=== PATIENT | male | born 1985 | race Caucasian/White ===

== ENCOUNTER 2019-08-07 10:10 | Emergency (ER) | payer OTHER, SELFPAY ==
[2019-08-07 10:21] VITALS: BP 150/90; PULSE 104; RESP 16; TEMP 36.7; O2SAT 96; BMI 34.9
--- NOTE | 2019-08-07 10:30 | ED_ITS ---
Entered by Alia Miranda, acting as scribe for Aileen Johnson MD HPI - Ear Problem General: Chief complaint: Ear Stated complaint: Ears are bleeding Time Seen by Provider: 08/07/19 10:28 Source: patient Mode of arrival: ambulatory Limitations: no limitations History of Present Illness: MD Complaint: ear pain (L ear) Location: left ear Duration: constant Severity: moderate Relieving factors: nothing Exacerbating factors: nothing Discharge from ear: yes - bloody Associated symptoms: Reports no associated symptoms and ear or mastoid pain; Denies fever(s), headache(s) or neck pain Treatment prior to arrival: none and other (pt took one augmentin) Review of Systems General: Reports: 10 or more systems reviewed and unremarkable except in HPI and below Const: Denies: fever, chills, body aches or change in appetite Eyes: Denies: blurry vision or eye discomfort ENMT: Reports: ear pain and ear discharge Card: Denies: chest pain Resp: Denies: shortness of breath GI: Denies: abdominal pain, nausea, vomiting or diarrhea : Denies: painful urination Musc: Denies: neck pain or back pain Skin/Breast: Denies: rash Neuro: Denies: headache Psych: Denies: depression Sree/Lymph: Denies: easy bruising All/Imm: Denies: hives PFSH ED PFSH: Social History Smoking and tobacco status: never smoked Physical Exam Const: COMMON NORMALS: no apparent distress, oriented x3 and healthy appearing HENMT: COMMON NORMALS: normocephalic and head/scalp atraumatic HEAD & SCALP: normocephalic and atraumatic TYMPANIC MEMBRANE: TM abnormal OTHER: Erythema to left ear with fluid in his ear small perforation to his eardrum Eye: COMMON NORMALS: PERRL and EOMs intact bilaterally PUPIL: Yes PERRL Neck/C-Spine: COMMON NORMALS: full ROM and supple Chest: COMMONS NORMALS: inspection of chest normal and palpation of chest normal Resp: COMMON NORMALS: normal respiratory effort, no retractions, no use of accessory muscles and clear to auscultation bilaterally AUSCULTATION: clear to auscultation bilaterally Cardio: COMMON NORMALS: regular rate, regular rhythm and no murmurs RATE: regular rate RHYTHM: regular rhythm GI: COMMON NORMALS: normal to inspection, nondistended, normoactive bowel sounds, soft to palpation, non-tender and no masses PALPATION: Yes soft Extremity: COMMON NORMALS: normal to inspection and full ROM Neuro: COMMON NORMALS: oriented x3, moves all extremities and no focal motor deficits Psych: COMMON NORMALS: mental status grossly normal, thought process normal and cooperative THOUGHT PROCESS: normal thought process Skin: COMMON NORMALS: no rashes or lesions noted and no wounds GENERAL SKIN EXAM: no rashes or lesions noted Course Vital Signs: Vital signs: Vital Signs Temperature 98.1 F 08/07/19 10:21 Pulse Rate 104 H 08/07/19 10:21 Respiratory Rate 18 08/07/19 10:31 Blood Pressure 150/90 08/07/19 10:21 Pulse Oximetry 96 08/07/19 10:21 MDM - Ear MDM Narrative: Medical decision making narrative: Patient presents with a perforated eardrum on the left. He is well-appearing here and we will place him on azithromycin. Patient is stable for discharge and is to follow-up with primary care doctor in 3 to 5 days. He has no signs of mastoiditis. Discharge Plan Discharge Patient Disposition: Home, Self-Care Clinical Impression: Otitis media Qualifiers: Otitis media type: serous Chronicity: acute Laterality: left Recurrence: non- recurrent Qualified Code(s): H65.02 - Acute serous otitis media, left ear Condition: Stable Prescriptions: New EC-Naprosyn 500 mg tablet,delayed release (DR/EC) 500 mg PO BID PRN (Reason: pain) Qty: 20 RF: 0 azithromycin 250 mg tablet See Rx Instructions .ROUTE .COMPLEX Qty: 6 RF: 0 [place] 5-325 mg tablet 1 tab PO Q6H PRN (Reason: pain) Qty: 8 RF: 0 No Action Concerta 36 mg Tablet Extended Release 24hr 36 mg PO DAILY RF: 0 Discharge Orders: Discharge Order (Routine); Ordered 08/07/19 Ordered By: Aileen Johnson Referrals: Leslie Stephenson FNP [Primary Care Provider] - 4-7 days Discharge Diet: Advance as tolerated Discharge Activity: Resume usual activity Patient Instructions: Otitis Media (ED) Coding Level of Care Code ED Film Tests Checker for Chg Fwd Exam Problem Focused The documentation recorded by the Ruben gilbert Bridget Annette, accurately reflects the service I personally performed and the decisions made by me, Aileen Johnson MD Aug 07, 2019 10:10
[2019-08-07 10:31] VITALS: RESP 18
[2019-08-07 10:44] VITALS: BP 131/87; PULSE 97; RESP 16; O2SAT 94
== END 2019-08-07 10:45 | disposition home or self-care (01) ==
PROVIDERS: Emergency Provider Emergency Medicine; Family Provider Nurse Practitioner; PCP Nurse Practitioner
DX: H66.92 Otitis media, unspecified, left ear (principal); H72.92 Unspecified perforation of tympanic membrane, left ear
CPT/HCPCS: 99281

== ENCOUNTER 2019-08-19 07:39 | Emergency (ER) | payer OTHER, SELFPAY ==
[2019-08-19 07:45] VITALS: BP 152/87; PULSE 93; RESP 16; TEMP 36.8; O2SAT 97; BMI 34.2
--- NOTE | 2019-08-19 07:46 | ED_ITS ---
HPI - Allergic Reaction General: Chief complaint: Allergic Reaction Stated complaint: LIPS SWELLING AND RASH ALL OVER Time Seen by Provider: 08/19/19 07:45 Source: patient Mode of arrival: ambulatory Limitations: no limitations History of Present Illness: HPI narrative: Patient comes in today for complaints of itchy rash and swelling of the lips since Thursday. Patient presently takes Bactrim for his otitis media. Patient appears in no acute distress. Patient appears in no pain. Patient appears well. MD complaint: hives and facial swelling Review of Systems General: Reports: 10 or more systems reviewed and unremarkable except in HPI and below ENMT: Denies: uvular edema Skin/Breast: Reports: rash and itching PFSH ED PFSH: Social History Smoking and tobacco status: never smoked Physical Exam Const: COMMON NORMALS: no apparent distress and oriented x3 GENERAL APPEARANCE: cooperative HENMT: COMMON NORMALS: normocephalic, external ears normal, EAC's normal, TM's normal bilaterally and external nose normal HEAD & SCALP: normal to inspection and normocephalic NOSE: external nose normal GENERAL EAR: hearing not grossly impaired EXTERNAL EAR: Yes external ears normal EXTERNAL AUDITORY CANAL: EAC's normal TYMPANIC MEMBRANE: TM's normal bilaterally MOUTH: tongue normal and lip abnormal (mild swelling) THROAT: postnasal drainage; no uvular edema Eye: COMMON NORMALS: PERRL and EOMs intact bilaterally PUPIL: Yes PERRL Neck/C-Spine: COMMON NORMALS: full ROM and no lymphadenopathy Lymph: LYMPHATIC: no lymphedema noted Chest: COMMONS NORMALS: inspection of chest normal and palpation of chest normal Resp: COMMON NORMALS: normal respiratory effort and clear to auscultation bilaterally AUSCULTATION: clear to auscultation bilaterally Cardio: COMMON NORMALS: regular rate and regular rhythm RATE: regular rate RHYTHM: regular rhythm GI: COMMON NORMALS: normal to inspection, nondistended, normoactive bowel sounds and non-tender : COMMON NORMALS: Yes no CVA tenderness BLADDER/KIDNEY EXAM: Yes no CVA tenderness Back/Pelvis: COMMON NORMALS: no CVA tenderness and thoracic and lumbar spine normal to inspection Extremity: COMMON NORMALS: normal to inspection GENERAL: No edema Neuro: COMMON NORMALS: oriented x3, moves all extremities and no focal motor deficits Psych: COMMON NORMALS: mental status grossly normal and cooperative Skin: COMMON NORMALS: skin turgor normal GENERAL SKIN EXAM: turgor normal RASHES: rashes noted (urticaria) Course Vital Signs: Vital signs: Vital Signs Temperature 98.2 F 08/19/19 07:45 Pulse Rate 86 08/19/19 07:56 Respiratory Rate 17 08/19/19 07:56 Blood Pressure 152/87 08/19/19 07:56 Pulse Oximetry 99 08/19/19 07:56 MDM - Allergic Reaction MDM Narrative: Medical decision making narrative: Patient comes in today for complaints of lip swelling and rash since Thursday. Patient presently takes Bactrim for an otitis infection. Patient has had Augmentin and azithromycin also over the past 2 weeks. Patient reports that he is having improvement in his ear infection since being switched to the Bactrim. Patient on Thursday sta rted having itching and some mild swelling to the lips. Patient has been taking Benadryl but the rash has persisted and seems to be getting worse. Patient has continued taking the Bactrim though. Patient appears well. Patient appears in no pain. Exam notes respirations were even lungs were clear to auscultation. Skin is warm and dry color is pink. Differential diagnosis includes allergic re action, adverse drug reaction, anaphylaxis. Patient was given dexamethasone 10 mg IM and hydroxyzine 25 mg. Patient was encouraged to continue with hydroxyzine 25 mg every 6 hours for itching and rash. Encourage plenty drink plenty of fluids which includes water. Recommend stopping the Bactrim. And follow-up with ear nose and throat for continued monitoring of otitis media. Discharge Plan Discharge Patient Disposition: Home, Self-Care Clinical Impression: Urticaria Adverse reaction to drug Qualifiers: Encounter type: initial encounter Qualified Code(s): T50.905A - Adverse effect of unspecified drugs, medicaments and biological substances, initial encounter Condition: Stable Prescriptions: New hydroxyzine HCl 25 mg tablet 25 mg PO Q4H PRN (Reason: itching) Qty: 30 RF: 0 No Action Concerta 36 mg Tablet Extended Release 24hr 36 mg PO DAILY RF: 0 EC-Naprosyn 500 mg tablet,delayed release (DR/EC) 500 mg PO BID PRN (Reason: pain) Qty: 20 RF: 0 azithromycin 250 mg tablet See Rx Instructions .ROUTE .COMPLEX Qty: 6 RF: 0 [place] 5-325 mg tablet 1 tab PO Q6H PRN (Reason: pain) Qty: 8 RF: 0 Discharge Orders: Discharge Order (Routine); Ordered 08/19/19 Ordered By: Valerio Watts Referrals: Lselie Stephenson FNP [Primary Care Provider] - Discharge Diet: Usual diet Discharge Activity: Increase activity as tolerated Patient Instructions: Adverse Drug Reaction (ED) Activity Restrictions/Additional Instructions: Stop Bactrim Drink plenty of water Avoid extremes in temperature, Avoid hot showers, Avoid spicy foods, as these situations may aggravate rash and symptoms Take medications as directed Follow-up with primary care in three days for recheck Return to ER for worsening difficulty breathing or new concerns Stand Alone Forms: Work/School Release Coding Level of Care Code ED Supervisor Paper Testing for Alphonse Fwd Exam Comprehensive
[2019-08-19 07:56] VITALS: BP 152/87; PULSE 86; RESP 17; O2SAT 99
[2019-08-19] MEDS: dexamethasone 10 mg/mL INJ IM (08:15)
[2019-08-19] MEDS: hyDROXYzine 25 mg Capsule PO (08:15)
[2019-08-19 08:40] VITALS: PULSE 101; RESP 16; O2SAT 98
== END 2019-08-19 08:40 | disposition home or self-care (01) ==
PROVIDERS: Emergency Provider Nurse Practitioner Family; Family Provider Nurse Practitioner; PCP Nurse Practitioner
DX: L50.0 Allergic urticaria (principal); T50.905A Adverse effect of unspecified drugs, medicaments and biological substances, initial encounter
CPT/HCPCS: 96372; 99281; 99283; J1100

== ENCOUNTER 2020-03-29 19:25 | Emergency (ER) | payer OTHER, SELFPAY ==
[2020-03-29 19:41] VITALS: BP 137/92; PULSE 94; RESP 16; TEMP 36.8; O2SAT 96; BMI 33.4
--- NOTE | 2020-03-29 20:08 | ED_ITS ---
HPI - Neuro Symptoms/Deficit General: Chief Complaint: Neuro Symptoms/Deficit Stated Complaint: unable to complete sentences Time Seen by Provider: 03/29/20 20:07 History of Present Illness: HPI Narrative: Patient is a 34-year-old male comes to the ED with difficulty speaking. Patient has a past medical history of migraines. Patient says at proximately 1 PM yesterday he started having problems talking and says he developed a stutter. He is currently 31 to 32 hours post onset of symptoms. Symptoms have not improved since onset. He denies any history of stutter or any other speech issues. Yesterday after onset of symptoms he did not develop a mild headache and he rates about a 4 out of 10 currently. He describes location of the headache as at the back and top of head. He says his headache is not like his past migraines and feels very mild. He does not want any medication for his headache. He cannot comprehend speech and knows what he wants to say, but has trouble getting words out. He endorses having a brief episode of left side of face numbness/tingling sensation today that has since resolved. Facial numbness lasted for no more than a minute. Denies any recent drug or alcohol use. Denies any vision changes, difficulty with ambulation, weakness or numbness or tingling to extremities. Denies tobacco smoking history. Associated symptoms: Reports headache(s) (mild headache- located at top and back of head.); Deny chest pain, nausea or vomiting Review of Systems Const: Denies: fever(s), chills or fatigue Eyes: Denies: change in vision or eye discomfort ENMT: Denies: throat pain, odynophagia, nasal discharge or nasal congestion Card: Denies: chest pain, palpitations, edema, swelling of feet/ankles, dyspnea on exertion or orthopnea Resp: Denies: dyspnea, productive cough or non-productive cough GI: Denies: abdominal pain, nausea, vomiting, diarrhea, constipation or hematochezia : Denies: flank pain, difficulty urinating, dysuria or hematuria Musc: Denies: neck pain, back pain or extremity swelling Skin/Breast: Denies: rash or new lesions Neuro: Reports: headache(s) (mild headache- located at top and back of head.), sensory changes (brief left facial numbness that resolved within a minute earlier today.) and difficulty communicating thoughts; Denies: numbness in extremities, weakness in extremities, lack of coordination, difficulty walking or confusion PFSH ED PFSH: Social History Smoking and tobacco status: never smoked NIH stroke score NIHSS: Level Of Consciousness - 1a: 0 Level Of Consciousness Questions - 1b: Both Correct Level Of Consciousness Commands - 1c: Both Correct Best Gaze - 2: Normal Visual Lala - 3: No Visual Loss Facial Palsy - 4: Normal Motor Arm Right - 5: No Drift Motor Arm Left - 5: No Drift Motor Leg Right - 6: No Drift Motor Leg Left - 6: No Drift Limb Ataxia - 7: Absent Sensory - 8: Normal Best Language - 9: Mild/Moderate Aphasia Dysarthia - 10: Normal Extinction And Inattention - 11: 0 Score: Total Score: 1 Physical Exam Const: COMMON NORMALS: no acute distress, patient oriented x3 and alert GENERAL APPEARANCE: cooperative and comfortable ORIENTATION/CONSCIOUSNESS: Yes oriented to person, Yes oriented to place and Yes oriented to time HENMT: COMMON NORMALS: normocephalic HEAD & SCALP: normocephalic MOUTH: Normal oral and palatal mucosa present THROAT: posterior oropharynx normal and uvula midline Eye: COMMON NORMALS: Equal, round and reactive pupils present, EOMs intact bilaterally, conjunctivae normal and normal visual lala by confrontation CONJUNCTIVA: Yes conjunctivae normal PUPIL: Yes Equal, round and reactive pupils present Neck/C-Spine: COMMON NORMALS: supple GENERAL: Yes normal visual inspection Resp: COMMON NORMALS: normal respiratory effort, No retractions, No use of accessory muscles and clear to auscultation bilaterally AUSCULTATION: clear to auscultation bilaterally Cardio: COMMON NORMALS: regular rate, regular rhythm, S1 normal heart sound present, S2 normal heart sound present, No gallops present (Cardio), No clicks present (Cardio), No murmurs present (Cardio) and Peripheral pulses 2+ throughout RATE: regular rate RHYTHM: regular rhythm HEART SOUNDS: S1 normal heart sound present and S2 normal heart sound present PERIPHERAL PULSES: Peripheral pulses 2+ throughout GI: COMMON NORMALS: Normal to inspection, nondistended, normoactive bowel sounds present, Soft to palpation, non-tender and no masses PALPATION: Yes Soft to palpation : COMMON NORMALS: Yes no CVA tenderness BLADDER/KIDNEY EXAM: Yes no CVA tenderness Back/Pelvis: COMMON NORMALS: no CVA tenderness Extremity: COMMON NORMALS: normal to inspection, capillary refill normal and no pedal edema Neuro: COMMON NORMALS: patient oriented x3, CN's II-XII intact bilaterally, moves all extremities, no focal motor deficits and no sensory deficits noted SENSORIUM/ORIENTATION: Yes alert, Yes oriented to person, Yes oriented to place and Yes oriented to time COORDINATION/BALANCE: [id number] test normal SPEECH: abnormal speech Details: stuttering GAIT: Yes Normal gait present SENSORY EXAM: Yes extremities (intact) MOTOR EXAM: 5/5 motor strength present throughout COORDINATION: [id number] test normal Skin: GENERAL SKIN EXAM: dry skin Course Consultations: Consultation #1: [facility] Neurologist Consult--Dr. Gibson--I told about patient case presentation symptoms and CT head result. He said acute onset of stuttering is rarely neurological or result of a stroke. He said since patient has no risk factors and is 34 years old and no other associated neurological symptoms he recommended having patient referred to a neurologist outpatient and they can evaluate him and potentially do further imaging as needed. Vital Signs: Vital signs: Vital Signs Temperature 98.2 F 03/29/20 19:41 Pulse Rate 94 03/29/20 19:41 Respiratory Rate 16 03/29/20 19:41 Blood Pressure 137/92 03/29/20 19:41 Pulse Oximetry 96 03/29/20 19:41 MDM - Neuro Symptoms/Deficit MDM Narrative: Medical decision making narrative: Patient is a 34-year-old male who comes to the ED with sudden onset of stuttering. Symptom started approximately 1 PM yesterday. Patient describes understanding speech and knows what he wants to say but has trouble saying words. He denies any past history of speech problems or stuttering. He endorses having a brief episode that it since resolved today of left-sided facial tingling lasted for approximately 1 minute. He denies any vision changes, trouble ambulating, numbness weakness to extremities. NIHSS stroke score-1. Neuro exam was remarkable for abnormal speech?stuttering. The rest of neurological exam was normal. CT of the head showed no acute findings. I consulted Dr. Gibson a Neurologist with [facility]- He said acute onset of stuttering is rarely neurological or result of a stroke. He said since patient has no risk factors and is 34 years old and no other associated neurological symptoms he recommended having patient referred to a neurologist outpatient and they can evaluate him and potentially do further imaging as needed. I placed an order with case management for patient to be referred to a neurologist at [facility] in [place]. I discussed with patient my conversation with the neurologist Dr. Gibson. patient was discharged and told to follow-up with his primary care doctor in 5 to 7 days for reevaluation. I told him that case management should be contacting him in the next several days to set up an appointment with the neurologist at [facility]. Told him to return to ED if he has any worsening of symptoms or new onset of neurological symptoms. Patient understood and agreed with plan. Imaging Data^: CT Head: Attestation: I personally reviewed and interpreted this imaging study as miranda ws: Radiologist's impression: [place] [address] CT Scan Report Signed Patient: Renny Arnett Unit #: [id number] : 1985 Age/Sex: 34 / M ADM Date: 03/29/20 Loc: ER Room/Bed: Attending Dr: Ordering Provider/Ordering MD: Dioni Bender Date of Service: 03/29/20 Procedure(s): CT head wo con* [id number] Accession Number(s): [id number] Report Number: [id number] PROCEDURE INFORMATION: Exam: CT Head Without Contrast Exam date and time: 03/29/2020 8:17 PM Age: 34 years old Clinical indication: Patient HX: Speech disturbance x 1day; Additional info: Stroke like symptoms TECHNIQUE: Imaging protocol: Computed tomography of the head without contrast. Radiation optimization: All CT scans at this facility use at least one of these dose optimization techniques: automated exposure control; mA and/or kV adjustment per patient size (includes targeted exams where dose is matched to clinical indication); or iterative reconstruction. COMPARISON: No relevant prior studies available. RADIATION DOSE METRICS: Total DLP (mGy-cm): 853.07 FINDINGS: Brain: Normal. No hemorrhage. Unremarkable white matter. No mass effect. Cerebral ventricles: No ventriculomegaly. Bones/joints: Unremarkable. No acute fracture. Paranasal sinuses: Visualized sinuses are unremarkable. No fluid levels. Mastoid air cells: Visualized mastoid air cells are well aerated. Soft tissues: Unremarkable. CT/CT head wo con* [id number] IMPRESSION: No acute intracranial abnormality. Radiation Dose CTDIVOL = (mGy): DLP = 853.07 (mGy-cm) Dictated By: Alex Fabian Signed By: Alex Fabian Signed Date/Time: 03/29/202045 DD/ 44 Discharge Plan Discharge Patient Disposition: Home Clinical Impression: Idiopathic stuttering Headache Qualifiers: Headache type: tension-type Headache chronicity pattern: acute headache Intractability: not intractable Qualified Code(s): G44.209 - Tension-type headache, unspecified, not intractable Condition: Stable Prescriptions: No Action Concerta 36 mg Tablet Extended Release 24hr 36 mg PO DAILY RF: 0 EC-Naprosyn 500 mg tablet,delayed release (DR/EC) 500 mg PO BID PRN (Reason: pain) Qty: 20 RF: 0 azithromycin 250 mg tablet See Rx Instructions .ROUTE .COMPLEX Qty: 6 RF: 0 [place] 5-325 mg tablet 1 tab PO Q6H PRN (Reason: pain) Qty: 8 RF: 0 hydroxyzine HCl 25 mg tablet 25 mg PO Q4H PRN (Reason: itching) Qty: 30 RF: 0 Discharge Orders: Discharge Order (Routine); Ordered 03/29/20 Ordered By: Dioni Bender Referrals: Leslie Stephenson FNP [Primary Care Provider] - Discharge Diet: Regular Discharge Activity: Resume usual activity Activity Restrictions/Additional Instructions: Follow-up with your primary care physician in the next 5-7 days for reevaluation. Case management should be contacting you in the next several days to set up an appointment with a neurologist at [facility] in [place]. Return to the ER or your medical provider if condition worsens. Please read and understand discharge instructions. If any questions, please ask. Coding Level of Care Code ED Front Office Developer for Jayashreeg Fwd Exam Comprehensive
[2020-03-29 21:58] VITALS: BP 135/92; PULSE 86; RESP 18; O2SAT 94
--- NOTE | 2020-03-30 10:25 | DCPLANNER ---
room service manager had message to schedule a follow up appointment for patient with neurology at [facility] in [place]. room service manager called [facility], faxed patients information to the facility. room service manager will call for appointment information. Patient has [employer] insurance, clinical case manager emailed patients information to Sabina with [facility], by secure email.
--- NOTE | 2020-04-12 15:25 | DCPLANNER ---
Addendum entered by Charline Mayfield 08/23/20 11:00: Patient had a follow up appointment scheduled with Dr. Mathis at [facility] - patient did attend appointment. Original Note: Patient has a follow up appointment scheduled for Friday, June 19, 2020 at 3:[address] Mathis at [facility] in [place]. Clinic will contact patient with appointment information.
== END 2020-03-29 22:03 | disposition home or self-care (01) ==
PROVIDERS: Emergency Provider Physician Assistant; PCP Nurse Practitioner
DX: F98.5 Adult onset fluency disorder (principal); G44.209 Tension-type headache, unspecified, not intractable
CPT/HCPCS: 12345; 70450; 99283

== ENCOUNTER 2020-05-09 15:12 | Emergency (ER) | payer OTHER, SELFPAY ==
[2020-05-09 15:27] VITALS: BP 140/96; PULSE 110; RESP 18; TEMP 37.1; O2SAT 95; BMI 34.9
--- NOTE | 2020-05-09 15:46 | W.ED.GENADLT ---
HPI - General Adult General: Chief complaint: General Medical Stated complaint: UNKNOWN SUBSTANCE CONTACT Time Seen by Provider: 05/09/20 15:42 History of Present Illness: HPI narrative: Patient is a 34-year-old male who comes to the ED after possible exposure in contact unknown substance. Patient works at the [employer] says he was opening some mail noticed that the letter he opened had a fine white powder in it. No one else witnessed or saw the fine white powder. Patient says the letter was typed and just had recordings of blood pressures on it. He says he reported incident to the medical office coordinator at the [facility] and he also placed letter and biohazard bag and it is available for testing at the [facility]. Patient reports having no symptoms currently. Denies any chest pain, shortness of breath, cough, headache, nausea/vomiting, diarrhea. Associated symptoms: Deny chest pain, dyspnea, headache(s), nausea, rash, palpitations or vomiting Review of Systems Narrative: Patient has no symptoms but exposed to possibly hazardous unknown substance. Const: Denies: fever(s), chills or fatigue Eyes: Denies: change in vision or eye discomfort ENMT: Denies: throat pain, odynophagia, nasal discharge or nasal congestion Card: Denies: chest pain, palpitations, edema, swelling of feet/ankles, dyspnea on exertion or orthopnea Resp: Denies: dyspnea, productive cough or non-productive cough GI: Denies: abdominal pain, nausea, vomiting, diarrhea, constipation or hematochezia : Denies: flank pain, difficulty urinating, dysuria or hematuria Musc: Denies: neck pain, back pain or extremity swelling Skin/Breast: Denies: rash or new lesions Neuro: Denies: headache(s), numbness in extremities or weakness in extremities PFS ED PFSH: Social History Smoking and tobacco status: never smoked Physical Exam Const: COMMON NORMALS: no acute distress, patient oriented x3, healthy appearing and alert GENERAL APPEARANCE: cooperative and comfortable HENMT: COMMON NORMALS: normocephalic HEAD & SCALP: normocephalic MOUTH: Normal oral and palatal mucosa present THROAT: posterior oropharynx normal and uvula midline Eye: COMMON NORMALS: Equal, round and reactive pupils present and conjunctivae normal CONJUNCTIVA: Yes conjunctivae normal PUPIL: Yes Equal, round and reactive pupils present Neck/C-Spine: COMMON NORMALS: supple GENERAL: Yes normal visual inspection Resp: COMMON NORMALS: normal respiratory effort, No retractions, No use of accessory muscles and clear to auscultation bilaterally EFFORT & INSPECTION: Yes able to speak in complete sentences, No tachypneic, No respiratory distress and No labored AUSCULTATION: clear to auscultation bilaterally Cardio: COMMON NORMALS: regular rate, regular rhythm, S1 normal heart sound present, S2 normal heart sound present, No gallops present (Cardio), No clicks present (Cardio), No murmurs present (Cardio) and Peripheral pulses 2+ throughout RATE: regular rate RHYTHM: regular rhythm HEART SOUNDS: S1 normal heart sound present and S2 normal heart sound present PERIPHERAL PULSES: Peripheral pulses 2+ throughout GI: COMMON NORMALS: Normal to inspection, nondistended, normoactive bowel sounds present, Soft to palpation, non-tender and no masses PALPATION: Yes Soft to palpation : COMMON NORMALS: Yes no CVA tenderness BLADDER/KIDNEY EXAM: Yes no CVA tenderness Back/Pelvis: COMMON NORMALS: no CVA tenderness Extremity: COMMON NORMALS: normal to inspection Neuro: COMMON NORMALS: patient oriented x3 and moves all extremities SENSORIUM/ORIENTATION: Yes alert Skin: GENERAL SKIN EXAM: dry skin Course Vital Signs: Vital signs: Vital Signs Temperature 98.7 F 05/09/20 15:27 Pulse Rate 110 H 05/09/20 15:27 Respiratory Rate 18 05/09/20 15:27 Blood Pressure 140/96 05/09/20 15:27 Pulse Oximetry 95 05/09/20 15:27 MDM - General Adult MDM Narrative: Medical decision making narrative: Patient is a 34-year-old male who comes to the ED after he came in contact with unknown substance while working at the [employer]. Patient says he opened an envelope and saw small fine white powder in the envelope. He put envelope in biohazard bag and reported incident to his medical office coordinator. Patient says the [facility] was going to further investigate envelope. Patient has no symptoms and first went to decontamination when he came here to the ED. Exam was completely normal. Vitals stable. patient was discharged and told to return immediately if he finds out what substance was of its hazardous and to return if he starts developing fever, nausea/vomiting, chest pain, shortness of breath and diarrhea. Patient understood and agreed with plan. Discharge Plan Discharge Patient Disposition: Home Clinical Impression: Contact with potentially hazardous substance Condition: Stable Prescriptions: No Action hydrocodone-acetaminophen [Reynolds] 5-325 mg tablet 1 tab PO Q6H PRN (Reason: pain) Qty: 8 RF: 0 cetirizine 10 mg Tablet 10 mg PO DAILY RF: 0 Concerta 54 mg Tablet Extended Release 24hr 54 mg PO DAILY RF: 0 levothyroxine 25 mcg Tablet 25 mcg PO DAILY RF: 0 Lamictal 25 mg Tablet 25 mg PO DAILY RF: 0 loratadine 10 mg Tablet 10 mg PO DAILY RF: 0 Vitamin D3 25 mcg (1,000 unit) Tablet,Chewable 25 mcg PO DAILY RF: 0 Discharge Orders: Discharge Order (Routine); Ordered 05/09/20 Ordered By: Dioni Bender Referrals: Leslie Stephenson FNP [Primary Care Provider] - Discharge Diet: Regular Discharge Activity: Resume usual activity Activity Restrictions/Additional Instructions: Follow-up with medical provider as directed. Return to ED for evaluation if he start developing fever, chest pain, shortness of breath, nausea vomiting or diarrhea in the next couple days. [facility] she can return for treatment if substances are hazardous. Return to the ER or your medical provider if condition worsens. Please read and understand discharge instructions. If any questions, please ask. Coding Level of Care Code ED Bulb Weeder for Alphonse Story Exam Comprehensive
== END 2020-05-09 16:55 | disposition home or self-care (01) ==
PROVIDERS: Emergency Provider Physician Assistant; PCP Nurse Practitioner
DX: Z77.29 Contact with and (suspected) exposure to other hazardous substances (principal)
CPT/HCPCS: 12345; 99281

== ENCOUNTER 2020-05-15 07:47 | Emergency (ER) | payer OTHER, SELFPAY ==
[2020-05-15 08:02] VITALS: BP 139/90; PULSE 99; RESP 16; TEMP 36.2; O2SAT 97; BMI 34.9
--- NOTE | 2020-05-15 08:23 | XR_ITS ---
WS: [id number] XR chest 1V portable [id number] REASON FOR EXAM: cough, r/o covid FINDINGS: The chest is unchanged compared to previous examination of 04/15/2019. The heart and mediastinum are within normal limits. No active pulmonary parenchymal pleural disease is noted. The bony thorax is intact. XR/XR chest 1V portable [id number] IMPRESSION: No acute chest abnormality identified.
--- NOTE | 2020-05-15 08:24 | W.ED.GENADLT ---
HPI - General Adult General: Chief complaint: General Medical Stated complaint: rash, cough, itchy eyes Time Seen by Provider: 05/15/20 07:52 History of Present Illness: HPI narrative: This patient is a 34-year-old male who presents today with cough, rash, body aches, eye irritation. He works at the [employer] here in [facility] and on the he opened an envelope that contained a white powdery substance. He was evaluated that day in the ER in the next day at [place] at urgent care. He was tested for Covid in [place] and also had a CBC and BMP done. He also was diagnosed with a double ear infection and put on Augmentin. He said he was doing okay but returned to work yesterday and since then has had painful itchy eyes, cough, body aches and this morning woke up with a rash on his chest. He took Benadryl and the rash is mostly faded. He said they tested the white powder and it was not anything biological. 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 Onset (ago): week(s) (1) Associated symptoms: Reports dyspnea and malaise; Deny chest pain, headache(s), nausea, rash or vomiting Review of Systems General: Reports: 10 or more systems reviewed and unremarkable except in HPI and below Const: Reports: fatigue and malaise; Denies: fever(s) or chills Eyes: Reports: eye discomfort and dry eyes; Denies: change in vision ENMT: Reports: throat pain and ear or mastoid pain (Bilateral with anterior lymphadenopathy); Denies: odynophagia Card: Denies: chest pain or swelling of feet/ankles Resp: Reports: dyspnea and non-productive cough; Denies: productive cough GI: Denies: abdominal pain, nausea or vomiting : Denies: flank pain Musc: Denies: neck pain or back pain Skin/Breast: Denies: rash Neuro: Denies: headache(s), numbness in extremities or weakness in extremities Sree/Lymph: Denies: easy bruising or easy bleeding PFSH ED PFSH: Social History Smoking and tobacco status: never smoked Physical Exam Const: COMMON NORMALS: no acute distress, patient oriented x3, no limitations and alert GENERAL APPEARANCE: cooperative and comfortable HENMT: HEAD & SCALP: normal to inspection FACE & SINUS: normal facial exam Eye: GENERAL EYE: appearance normal, both eyes and all related structures Neck/C-Spine: COMMON NORMALS: supple, no meningeal signs and no JVD GENERAL: Yes lymphadenopathy Lymphadenopathy location: anterior cervical Chest: COMMONS NORMALS: normal inspection of the chest Resp: COMMON NORMALS: normal respiratory effort, No use of accessory muscles and clear to auscultation bilaterally EFFORT & INSPECTION: Yes other (Frequent dry cough) AUSCULTATION: clear to auscultation bilaterally Cardio: COMMON NORMALS: no JVD, regular rate, regular rhythm and No murmurs present (Cardio) RATE: regular rate RHYTHM: regular rhythm GI: COMMON NORMALS: Normal to inspection, nondistended, normoactive bowel sounds present, Soft to palpation and non-tender INSPECTION: Yes normal to inspection AUSCULTATION: Yes normoactive bowel sounds PALPATION: Yes Soft to palpation Back/Pelvis: COMMON NORMALS: thoracic and lumbar spine normal to inspection Extremity: COMMON NORMALS: normal to inspection Neuro: COMMON NORMALS: patient oriented x3, moves all extremities, no focal motor deficits and no sensory deficits noted SENSORIUM/ORIENTATION: Yes alert MENINGEAL SIGNS: Yes no meningeal signs Psych: COMMON NORMALS: mental status grossly normal, cooperative and normal affect Skin: COMMON NORMALS: turgor normal NARRATIVE SKIN EXAM: Mild areas of patchy redness across the upper chest. GENERAL SKIN EXAM: turgor normal Course ED course: Patient's labs were unremarkable. He is on Augmentin for ear infections and will have him continue that. I really do not see any rash on him at the moment. Flu and Covid were negative. Strep was negative. He was reassured and discharged for outpatient follow-up. Vital Signs: Vital signs: Vital Signs Temperature 98.0 F 05/15/20 09:51 Pulse Rate 90 05/15/20 09:51 Respiratory Rate 18 05/15/20 09:51 Blood Pressure 137/87 05/15/20 09:51 Pulse Oximetry 96 05/15/20 09:51 MDM - General Adult Lab Data: Labs: Lab Results 05/15/20 05/15/20 05/15/20 Range/Units 08:28 08:36 08:36 WBC (4.0-10.0) 10^3/ uL RBC (4.1-5.3) 10^6/u L Hgb (11.7-16.6) g/dL Hct (42.0-52.0) % MCV (80-94) fL MCH (28.0-34.0) pg MCHC (30.0-36.0) g/dL RDW (12.1-15.1) % Plt Count (130-400) 10^3/c mm MPV (7.4-10.4) fL Neut % (Auto) % Lymph % (Auto) % [place] % (Auto) % Eos % (Auto) % Baso % (Auto) % Neut # (Auto) (1.8-7.7) 10^3/u L Lymph # (Auto) (0.8-4.8) 10^3/u L [place] # (Auto) (0.2-0.9) 10^3/u L Eos # (Auto) (0.0-0.8) 10^3/u L Baso # (Auto) (0.0-0.1) 10^3/u L Nucleated RBC % (a uto) % Nucleated RBCs # /100WBC Sodium (136-145) mmol/L Potassium (3.5-5.1) mmol/L Chloride (98-107) mmol/L Carbon Dioxide (22-29) mmol/L Anion Gap (5-19) BUN (6-20) mg/dL Creatinine (0.7-1.2) mg/dL GFR Calculation (90-130) mL/min Glucose (65-115) mg/dL Calculated Osmolal ity (285-295) mOsm/k g Calcium (8.5-10.5) mg/dL Total Bilirubin (0.15-1.2) mg/dL AST (0-40) U/L ALT (0-41) U/L Alkaline Phosphata se (40-130) IU/L Total Protein (6.6-8.7) g/dL Albumin (3.5-5.2) g/dL Globulin (1.3-4.6) g/dL Influenza Type A A g Negative (Negative) Influenza Type B A g Negative (Negative) SARS-CoV-2 Ag (Rap id) Negative (Negative) Group A Strep Rapi d Negative (Negative) 05/15/20 05/15/20 Range/Units 09:00 09:00 WBC 6.5 (4.0-10.0) 10^3/ uL RBC 5.15 (4.1-5.3) 10^6/u L Hgb 15.5 (11.7-16.6) g/dL Hct 45.7 (42.0-52.0) % MCV 88.7 (80-94) fL MCH 30.1 (28.0-34.0) pg MCHC 33.9 (30.0-36.0) g/dL RDW 12.3 (12.1-15.1) % Plt Count 223 (130-400) 10^3/c mm MPV 9.2 (7.4-10.4) fL Neut % (Auto) 65.9 % Lymph % (Auto) 24.0 % [place] % (Auto) 8.4 % Eos % (Auto) 0.9 % Baso % (Auto) 0.6 % Neut # (Auto) 4.29 (1.8-7.7) 10^3/u L Lymph # (Auto) 1.6 (0.8-4.8) 10^3/u L [place] # (Auto) 0.6 (0.2-0.9) 10^3/u L Eos # (Auto) 0.1 (0.0-0.8) 10^3/u L Baso # (Auto) 0.0 (0.0-0.1) 10^3/u L Nucleated RBC % (a uto) 0 % Nucleated RBCs # 0.0 /100WBC Sodium 142 (136-145) mmol/L Potassium 4.5 (3.5-5.1) mmol/L Chloride 104 (98-107) mmol/L Carbon Dioxide 29 (22-29) mmol/L Anion Gap 13.5 (5-19) BUN 17 (6-20) mg/dL Creatinine 0.9 (0.7-1.2) mg/dL GFR Calculation 96.0 (90-130) mL/min Glucose 94 (65-115) mg/dL Calculated Osmolal ity 295 (285-295) mOsm/k g Calcium 9.4 (8.5-10.5) mg/dL Total Bilirubin 0.4 (0.15-1.2) mg/dL AST 29 (0-40) U/L ALT 47 H (0-41) U/L Alkaline Phosphata se 66 (40-130) IU/L Total Protein 7.1 (6.6-8.7) g/dL Albumin 4.8 (3.5-5.2) g/dL Globulin 2.3 (1.3-4.6) g/dL Influenza Type A A g (Negative) Influenza Type B A g (Negative) SARS-CoV-2 Ag (Rap id) (Negative) Group A Strep Rapi d (Negative) Discharge Plan Discharge Patient Disposition: Home Clinical Impression: Viral syndrome Condition: Stable Prescriptions: No Action hydrocodone-acetaminophen [Blandon] 5-325 mg tablet 1 tab PO Q6H PRN (Reason: pain) Qty: 8 RF: 0 cetirizine 10 mg Tablet 10 mg PO DAILY RF: 0 Concerta 54 mg Tablet Extended Release 24hr 54 mg PO DAILY RF: 0 levothyroxine 25 mcg Tablet 25 mcg PO DAILY RF: 0 Lamictal 25 mg Tablet 25 mg PO DAILY RF: 0 loratadine 10 mg Tablet 10 mg PO DAILY RF: 0 Vitamin D3 25 mcg (1,000 unit) Tablet,Chewable 25 mcg PO DAILY RF: 0 Discharge Orders: Discharge Order (Routine); Ordered 05/15/20 Ordered By: Amber Shah Referrals: Leslie Stephenson FNP [Primary Care Provider] - Discharge Diet: Usual diet Discharge Activity: Resume usual activity Patient Instructions: Viral Syndrome (ED) Activity Restrictions/Additional Instructions: Continue symptomatic management of your symptoms. Follow-up with your primary care provider if not improving within a few days. Return to the ER if new or worse symptoms. Coding Level of Care Code ED Airplane Rigger for Alphonse Fwtimo Exam Comprehensive
[2020-05-15 08:53] LABS: Rapid Strep A Test Negative (Negative)
[2020-05-15 09:05] LABS: SARS Covid-2 Antigen Negative (Negative)
[2020-05-15 09:05] LABS: Influenza A by IFA Negative (Negative); Influenza B by IFA Negative (Negative)
[2020-05-15 09:12] LABS: Basophils % 0.6 %; Eosinophils # 0.1 10^3/uL (0.0-0.8); Eosinophils % 0.9 %; Hematocrit 45.7 % (42.0-52.0); Hemoglobin 15.5 g/dL (11.7-16.6); Lymphocytes # 1.6 10^3/uL (0.8-4.8); Mean Corpuscular HGB Conc 33.9 g/dL (30.0-36.0); Mean Corpuscular Hemoglobin 30.1 pg (28.0-34.0); Mean Corpuscular Volume 88.7 fL (80-94); Mean Platelet Volume 9.2 fL (7.4-10.4); Monocytes # 0.6 10^3/uL (0.2-0.9); Monocytes % 8.4 %; Neutrophils # 4.29 10^3/uL (1.8-7.7); Neutrophils % 65.9 %; Nucleated Red Blood Cells % 0 %; Platelet Count 223 10^3/cmm (130-400); Red Blood Count 5.15 10^6/uL (4.1-5.3); Red Cell Distribution Width 12.3 % (12.1-15.1); White Blood Count 6.5 10^3/uL (4.0-10.0)
[2020-05-15 09:27] LABS: Alanine Aminotransferase 47 U/L (0-41); Albumin Level 4.8 g/dL (3.5-5.2); Alkaline Phosphatase 66 IU/L (40-130); Anion Gap 13.5 (5-19); Aspartate Amino Transferase 29 U/L (0-40); Blood Urea Nitrogen 17 mg/dL (6-20); Calcium 9.4 mg/dL (8.5-10.5); Carbon Dioxide 29 mmol/L (22-29); Chloride 104 mmol/L (98-107); Globulin 2.3 g/dL (1.3-4.6); Glucose 94 mg/dL (65-115); Osmolality Calculated 295 mOsm/kg (285-295); Potassium 4.5 mmol/L (3.5-5.1); Sodium 142 mmol/L (136-145); Total Bilirubin 0.4 mg/dL (0.15-1.2); Total Protein 7.1 g/dL (6.6-8.7)
[2020-05-15 09:51] VITALS: BP 137/87; PULSE 90; RESP 18; TEMP 36.7; O2SAT 96
== END 2020-05-15 09:53 | disposition home or self-care (01) ==
PROVIDERS: Emergency Provider Emergency Medicine; PCP Nurse Practitioner
DX: B34.9 Viral infection, unspecified (principal)
CPT/HCPCS: 12345; 71045; 80053; 85025; 87081; 87426; 87804; 87880; 99281; 99283

== ENCOUNTER 2020-08-16 11:02 | Outpatient (CLI) | payer OTHER, SELFPAY ==
--- NOTE | 2020-08-16 11:08 | MR_ITS ---
WS: [id number] MRI RIGHT KNEE NONCONTRAST TECHNIQUE: Axial PD, coronal PD fat sat, coronal PD, sagittal PD, and sagittal PD fat-sat images obta ined. CLINICAL INFORMATION: RIGHT KNEE PAIN COMPARISON: MRI [id number] FINDINGS: Distal quadriceps and patella tendons are intact. Slightly hypertrophic patella. Small amount of prep atellar soft tissue edema. No acute patellar fractures. Normal anterior and posterior cruciate ligame nts. Mild to moderate joint space narrowing involving the medial and lateral joint compartments somew hat advanced for patient this age. Mild chondromalacia involving the medial and lateral joint compart ments. No subchondral edema. Normal medial and lateral meniscus. No acute appearing meniscal tears. Chronic appearing lateral subluxation of the patella unchanged in appearance since 2018. Moderate xiomara rowing of the patellofemoral articulation. Grade III chondromalacia involving the lateral patella fac et is advanced for patient this age. No subchondral edema. No acute appearing retinaculum tears. Medial and lateral collateral ligaments are normal in appearance. Normal popliteal fossa. MR/MR knee RT wo con* [id number] IMPRESSION: 1. Small amount of prepatellar soft tissue edema. No acute patellar fractures. 2. Chronic lateral subluxation of the patella unchanged in appearance since 18. Grade III chondromalacia lateral patella facet advanced for patient this ag e. No acute appearing retinaculum tears. Recommend correlation for patella inst ability. 3. Medial and lateral meniscus are normal in appearance. 4. Normal ACL and PCL. 5. Mild to moderate degenerative narrowing involving the medial and lateral mendy int compartments with mild chondromalacia somewhat advanced for patient this ag e. 6. No other significant findings.
== END 2020-08-16 11:03 | disposition home or self-care (01) ==
LOC: RADSHAW 11:04
PROVIDERS: PCP Nurse Practitioner; Visit Provider Nurse Practitioner
DX: R60.0 Localized edema (principal); M22.41 Chondromalacia patellae, right knee
CPT/HCPCS: 73721

== ENCOUNTER 2020-09-24 06:00 | Outpatient (RCR) | payer OTHER, SELFPAY | END 2020-10-19 23:59 | disposition home or self-care (01) | LOC: SPT 06:00 | PROVIDERS: PCP Nurse Practitioner; Referring Provider Nurse Practitioner; Visit Provider Nurse Practitioner | DX: M22.41 Chondromalacia patellae, right knee (principal); S83.011D Lateral subluxation of right patella, subsequent encounter; X58.XXXD Exposure to other specified factors, subsequent encounter; M25.561 Pain in right knee | CPT/HCPCS: 97110; 97161 ==

== ENCOUNTER 2020-12-21 09:25 | Outpatient (CLI) | payer OTHER, SELFPAY ==
--- NOTE | 2020-12-21 09:32 | MR_ITS ---
WS: [id number] MRI LEFT KNEE HISTORY: KNEE PAIN, chronic pain with no injury. COMPARISON: None available. Anterior cruciate ligament: Intact. Posterior cruciate ligament: Intact. Medial collateral ligament: Intact. Posterior lateral corner structures: Intact. Medial menisci: Intact. Normal signal, size and shape. Lateral meniscus: Intact. Normal signal, size and shape. Extensor mechanism: Distal quadriceps tendon and patellar tendons are intact. Fluid and soft tissue: No joint effusion. No Laws's cyst. Osseous and articular structures: Patellofemoral compartment: Normal. Medial compartment: Normal. Lateral compartment: Very small area of abnormal signal in the weightbearing surface of the mid femor al condyle cartilage consistent with minimal chondromalacia. No full thickness defect or marrow edema . MR/MR knee LT wo con* [id number] IMPRESSION: 1. Minimal chondromalacia involving the weightbearing surface of the lateral f emoral condyle. 2. No joint effusion or marrow edema. No meniscal tear.
== END 2020-12-21 09:26 | disposition home or self-care (01) ==
LOC: RADWPI 09:26
PROVIDERS: PCP Nurse Practitioner; Visit Provider Nurse Practitioner
DX: M25.562 Pain in left knee (principal)
CPT/HCPCS: 73721

== ENCOUNTER → 2020-12-22 12:44 | Outpatient (BNVA) | payer OTHER, SELFPAY | PROVIDERS: PCP Nurse Practitioner; Visit Provider Nurse Practitioner | DX: R05 Cough (principal) | CPT/HCPCS: 71045 ==

== ENCOUNTER → 2022-02-03 08:29 | Outpatient (BNVA) | payer OTHER, SELFPAY | PROVIDERS: PCP Nurse Practitioner; Visit Provider Surgery | DX: K92.1 Melena (principal) | CPT/HCPCS: 99203 ==

== ENCOUNTER 2022-05-05 06:36 | Outpatient (CLI) | payer OTHER, SELFPAY ==
--- NOTE | 2022-05-05 | US_ITS ---
WS: [id number] RIGHT UPPER QUADRANT ULTRASOUND HISTORY: ELEVATED LFT'S COMPARISON: None available. Liver: 16.3 cm in length. Normal size liver with mild coarsened echotexture from hepatic steatosis. N o mass or bile duct dilatation. Portal Vein: Normal hepatopetal flow with monophasic waveform. Gallbladder: Normally distended gallbladder with no stones or wall thickening. CBD: 0.4 cm Pancreas: Partially visualized. No abnormality but limited evaluation. Right kidney: 11.5 cm in length. Normal size and echogenicity. No hydronephrosis or mass. Aorta and IVC: Unremarkable abdominal aorta and IVC. No ascites. US/US abdomen limited [id number] IMPRESSION: 1. Normal gallbladder. 2. Normal size liver with mild hepatic steatosis. 3. Poorly visualized pancreas.
== END 2022-05-05 06:37 | disposition home or self-care (01) ==
LOC: RAD 06:37
PROVIDERS: PCP Nurse Practitioner; Visit Provider Family Medicine
DX: R78.9 Finding of unspecified substance, not normally found in blood (principal); K76.0 Fatty (change of) liver, not elsewhere classified
CPT/HCPCS: 76705

== ENCOUNTER 2022-08-01 06:00 | Outpatient (RCR) | payer OTHER, SELFPAY | END 2022-08-19 23:59 | disposition home or self-care (01) | LOC: SPT 06:00 | PROVIDERS: PCP Nurse Practitioner; Visit Provider Nurse Practitioner | DX: M67.362 Transient synovitis, left knee (principal) | CPT/HCPCS: 97110; 97161; G0283 ==

== ENCOUNTER 2023-03-09 09:03 | Emergency (ER) | payer OTHER, SELFPAY ==
[2023-03-09 09:11] VITALS: BP 158/81; PULSE 88; TEMP 36.7; O2SAT 96; BMI 37.4
--- NOTE | 2023-03-09 09:18 | CT_ITS ---
WS: [id number] CT ABDOMEN PELVIS TECHNIQUE: Noncontrast CT of the abdomen and pelvis with coronal and sagittal reformatted images. CLINICAL INFORMATION: abd pain COMPARISON: None. DLP: 1088.[address] scans at [facility] use at least one of these dose optimization techniques: automated e xposure control; mA and/or kV adjustment per patient size (includes targeted exams where dose is matc hed to clinical indication); or iterative reconstruction. FINDINGS: No obstructing renal or ureteral calculi. No hydronephrosis. Ureters are decompressed. Normal sigmoid colon. Few sigmoid diverticuli. No evidence of acute diverticulitis. Normal appendix i n the RIGHT lower quadrant. Tiny fat-containing umbilical hernia. Noncontrast liver and spleen are no rmal. Tiny esophageal hernia. Lung bases are well aerated. Noncontrast pancreas is normal. Normal adr enal glands. Normal caliber abdominal aorta. IMPRESSION: 1. No obstructing renal or ureteral calculi. No hydronephrosis. 2. A few sigmoid diverticuli. No evidence of acute diverticulitis. 3. Normal appendix in the RIGHT lower quadrant. 4. Small esophageal hiatal hernia. 5. No other suspicious findings
--- NOTE | 2023-03-09 09:20 | ED_ITS ---
HPI - Male Genitourinary General: Chief complaint: Urogenital-Male Stated complaint: possible kidney stone Time Seen by Provider: 03/09/23 09:05 Source: patient Mode of arrival: ambulatory Limitations: no limitations History of Present Illness: 37-year-old male states he has been having left-sided flank pain along with left-sided abdominal pain since . He states it is worsened throughout the week he rates his pain 8 out of 10 currently it is worse with movement and palpation had no vomiting no fevers denies any chest pain. Associated symptoms: Deny dysuria, nausea or vomiting Review of Systems Const: Denies: fever(s) or chills ENMT: Denies: throat pain or dental pain Card: Denies: chest pain Resp: Denies: dyspnea GI: Reports: abdominal pain; Denies: nausea, vomiting or diarrhea : Denies: dysuria Musc: Reports: back pain; Denies: neck pain Skin/Breast: Denies: rash Neuro: Denies: headache(s) PFS ED PFSH: Medical History Blood in stool Social History Smoking and tobacco status: never smoked Physical Exam Const: COMMON NORMALS: no acute distress, patient oriented x3 and healthy appearing HENMT: COMMON NORMALS: normocephalic and atraumatic HEAD & SCALP: normoce phalic and atraumatic Neck/C-Spine: COMMON NORMALS: full ROM and supple Chest: COMMONS NORMALS: normal inspection of the chest and normal palpation of entire chest wall Resp: COMMON NORMALS: normal respiratory effort, No retractions, No use of accessory muscles and clear to auscultation bilaterally AUSCULTATION: clear to auscultation bilaterally Cardio: COMMON NORMALS: regular rate, regular rhythm and No murmurs present (Cardio) RATE: regular rate RHYTHM: regular rhythm GI: COMMON NORMALS: Normal to inspection, nondistended, normoactive bowel sounds present, Soft to palpation and no masses PALPATION: Yes Soft to pa lpation OTHER: Left upper quadrant tenderness : OTHER: Left CVA tenderness left lower back tenderness Extremity: COMMON NORMALS: normal to inspection and full ROM Neuro: COMMON NORMALS: patient oriented x3, moves all extremities and no focal motor deficits Psych: COMMON NORMALS: mental status grossly normal, Normal thought process present and cooperative THOUGHT PROCESS: Normal thought process present Skin: COMMON NORMALS: no rashes or lesions noted and no wounds GENERAL SKIN EXAM: no rashes or lesions noted Course Vital Signs: Vital signs: Vital Signs Temperature 98.0 F 03/09/23 09:11 Pulse Rate 77 03/09/23 10:12 Blood Pressure 132/89 03/09/23 10:12 Pulse Oximetry 94 03/09/23 10:12 Oxygen Delivery Me thod Room Air 03/09/23 10:12 MDM - Male Medical Decision Making Patient presents here with back and abdominal pain is likely muscular in nature CT blood work urinalysis are all normal his pains improved we will prescribe him [place] Zofran for home he is to follow-up with PCP and return if worsening. Lab Data 03/09/23 09:16 03/09/23 09:16 Laboratory Results WBC 4.15 10^3/uL (3.29-11.43) 03/09/23 09:16 RBC 5.22 10^6/uL (3.85-5.65) 03/09/23 09:16 Hgb 15.60 g/dL (11.27-16.99) 03/09/23 09:16 Hct 47.4 % (37-53) 03/09/23 09:16 MCV 90.8 fl (82-101) 03/09/23 09:16 MCH 29.9 pg (27-33) 03/09/23 09:16 MCHC 32.9 g/dL (30-55) 03/09/23 09:16 RDW 13.1 % (12.1-15.1) 03/09/23 09:16 Plt Count 195 10^3/cmm (157-399) 03/09/23 09:16 MPV 9.0 fL (7.4-10.4) 03/09/23 09:16 Neut % (Auto) 58.7 % 03/09/23 09:16 Lymph % (Auto) 21.0 % 03/09/23 09:16 [place] % (Auto) 18.1 % 03/09/23 09:16 Eos % (Auto) 1.2 % 03/09/23 09:16 Baso % (Auto) 0.5 % 03/09/23 09:16 Neut # (Auto) 2.44 10^3/uL (1.8-7.7) 03/09/23 09:16 Lymph # (Auto) 0.9 10^3/uL (0.8-4.8) 03/09/23 09:16 [place] # (Auto) 0.8 10^3/uL (0.2-0.9) 03/09/23 09:16 Eos # (Auto) 0.1 10^3/uL (0.0-0.8) 03/09/23 09:16 Baso # (Auto) 0.0 10^3/uL (0.0-0.1) 03/09/23 09:16 Nucleated RBC % (auto) 0 % 03/09/23 09:16 Nucleated RBCs # 0.0 /100WBC 03/09/23 09:16 Sodium 141 mmol/L (136-145) 03/09/23 09:16 Potassium 4.2 mmol/L (3.5-5.1) 03/09/23 09:16 Chloride 103 mmol/L (98-107) 03/09/23 09:16 Carbon Dioxide 31 mmol/L (22-29) H 03/09/23 09:16 Anion Gap 11.2 (5-19) 03/09/23 09:16 BUN 13 mg/dL (6-20) 03/09/23 09:16 Creatinine 1.0 mg/dL (0.7-1.2) 03/09/23 09:16 GFR Calculation 83.6 mL/min (90-130) L 03/09/23 09:16 Glucose 88 mg/dL (65-115) 03/09/23 09:16 Calculated Osmolality 292 mOsm/kg (285-295) 03/09/23 09:16 Calcium 9.3 mg/dL (8.5-10.5) 03/09/23 09:16 Total Bilirubin 0.3 mg/dL (0.15-1.2) 03/09/23 09:16 AST 31 U/L (0-40) 03/09/23 09:16 ALT 63 U/L (0-41) H 03/09/23 09:16 Alkaline Phosphatase 73 U/L (40-130) 03/09/23 09:16 Total Protein 7.2 g/dL (6.6-8.7) 03/09/23 09:16 Albumin 4.6 g/dL (3.5-5.2) 03/09/23 09:16 Globulin 2.6 g/dL (1.3-4.6) 03/09/23 09:16 Lipase 24 U/L (13-60) 03/09/23 09:16 Urine Color Dark yellow (Yellow) 03/09/23 09:27 Urine Appearance Clear (CLEAR) 03/09/23 09:27 Urine pH 6 (5-7) 03/09/23 09:27 Ur Specific [place] 1.015 (1.005-1.030) 03/09/23 09:27 Urine Protein Neg (Negative) 03/09/23 09:27 Urine Glucose (UA) Norm (Normal) 03/09/23 09:27 Urine Ketones Negative (Negative) 03/09/23 09:27 Urine Blood Neg (Negative) 03/09/23 09:27 Urine Nitrate Negative (Negative) 03/09/23 09:27 Urine Bilirubin Neg (Negative) 03/09/23 09:27 Urine Urobilinogen 1 mg/dL (Negative) H 03/09/23 09:27 Ur Leukocyte Esterase Negative (Negative) 03/09/23 09:27 All radiology interpretation(s) finalized by discharge Discharge Plan Discharge Patient Disposition: Home Clinical Impression: Abdominal pain, Back pain Condition: Stable Prescriptions: New hydrocodone-acetaminophen 5-325 mg tablet 1 tab PO Q6H PRN (Reason: pain) Qty: 14 0RF ondansetron 4 mg tablet,disintegrating 4 mg PO Q6H PRN (Reason: nausea and vomiting) Qty: 14 0RF No Action doxycycline hyclate 100 mg capsule 100 mg PO BID 7 Days Qty: 14 0RF eqtzvsxnuz-drowzhfxmhuxr-aelb [Fioricet] 50-300-40 mg capsule 1 cap PO Q8H PRN (Reason: Pain) peg 3350-electrolytes [Golytely] 236-22.74-6.74 -5.86 gram recon soln 240 ml PO Q10M Qty: 4000 0RF Rx Instructions: until fecal effluent is clear cetirizine 10 mg Tablet 10 mg PO DAILY Concerta 54 mg Tablet Extended Release 24hr 54 mg PO DAILY levothyroxine 25 mcg Tablet 25 mcg PO DAILY Lamictal 25 mg Tablet 25 mg PO DAILY loratadine 10 mg Tablet 10 mg PO DAILY Vitamin D3 25 mcg (1,000 unit) Tablet,Chewable 25 mcg PO DAILY Discharge Orders: Discharge ED (Routine); Ordered 03/09/23 Ordered By: Aileen Johnson Referrals: Leslie Stephenson, NREMT [Primary Care Provider] - 1-3 days Discharge Diet: Advance as tolerated Discharge Activity: Resume usual activity Patient Instructions: Abdominal Pain (ED), Opioid Safety Coding Level of Care Code ED Personnel Representative for Alphonse Story
[2023-03-09 09:24] LABS: Basophils % 0.5 %; Eosinophils # 0.1 10^3/uL (0.0-0.8); Eosinophils % 1.2 %; Hematocrit 47.4 % (37-53); Lymphocytes # 0.9 10^3/uL (0.8-4.8); Mean Corpuscular HGB Conc 32.9 g/dL (30-55); Mean Corpuscular Hemoglobin 29.9 pg (27-33); Mean Corpuscular Volume 90.8 fl (82-101); Monocytes # 0.8 10^3/uL (0.2-0.9); Monocytes % 18.1 %; Neutrophils # 2.44 10^3/uL (1.8-7.7); Neutrophils % 58.7 %; Nucleated Red Blood Cells % 0 %; Platelet Count 195 10^3/cmm (157-399); Red Blood Count 5.22 10^6/uL (3.85-5.65); Red Cell Distribution Width 13.1 % (12.1-15.1); White Blood Count 4.15 10^3/uL (3.29-11.43)
[2023-03-09 09:35] LABS: Add Urine Microscopic? NO; Charge for UA Resulting for Rev
[2023-03-09 09:39] LABS: Alanine Aminotransferase 63 U/L (0-41); Albumin Level 4.6 g/dL (3.5-5.2); Alkaline Phosphatase 73 U/L (40-130); Anion Gap 11.2 (5-19); Aspartate Amino Transferase 31 U/L (0-40); Blood Urea Nitrogen 13 mg/dL (6-20); Calcium 9.3 mg/dL (8.5-10.5); Carbon Dioxide 31 mmol/L (22-29); Chloride 103 mmol/L (98-107); Globulin 2.6 g/dL (1.3-4.6); Glomerular Filtration Rate 83.6 mL/min (90-130); Glucose 88 mg/dL (65-115); Lipase 24 U/L (13-60); Osmolality Calculated 292 mOsm/kg (285-295); Potassium 4.2 mmol/L (3.5-5.1); Sodium 141 mmol/L (136-145); Total Bilirubin 0.3 mg/dL (0.15-1.2); Total Protein 7.2 g/dL (6.6-8.7)
[2023-03-09] MEDS: ondansetron 2 mg/ML SDV 2 mL 4 MG IVP (09:40)
[2023-03-09] MEDS: sodium chloride 0.9% 1,000 ML 999 ML IV (09:41)
[2023-03-09 09:52] LABS: Bilirubin Urine Neg (Negative); Blood Urine Neg (Negative); Glucose Urine UA Norm (Normal); Ketones Urine Negative (Negative); Leukocyte Esterase Urine Negative (Negative); Nitrate Urine Negative (Negative); Protein Urine Neg (Negative); Specific Gravity, Urine 1.015 (1.005-1.030); Urine Appearance Clear (CLEAR); Urine Color Dark Yellow (Yellow); Urobilinogen Urine 1 mg/dL (Negative); pH Urine 6 (5-7)
[2023-03-09] MEDS: ketorolac 30 mg/mL INJ IVP (09:52)
[2023-03-09 10:12] VITALS: BP 132/89; PULSE 77; O2SAT 94
--- NOTE | 2023-03-09 10:24 | PC.PHAR ---
FAXED [facility] FOR MED LIST
[2023-03-09 10:36] VITALS: BP 139/81; PULSE 80; O2SAT 93
== END 2023-03-09 10:34 | disposition home or self-care (01) ==
PROVIDERS: Emergency Provider Emergency Medicine; PCP Nurse Practitioner
DX: E03.9 Hypothyroidism, unspecified (principal); R79.89 Other specified abnormal findings of blood chemistry; E29.1 Testicular hypofunction; Z79.890 Hormone replacement therapy; R10.9 Unspecified abdominal pain; M54.9 Dorsalgia, unspecified
CPT/HCPCS: 36415; 74176; 80053; 81003; 83690; 85025; 96361; 96374; 96375; 99204; 99285; J1885; J2405; J7030

== ENCOUNTER → 2023-03-31 10:39 | Outpatient (BNVA) | payer OTHER, SELFPAY | PROVIDERS: PCP Nurse Practitioner; Visit Provider Internal Medicine | DX: E03.9 Hypothyroidism, unspecified (principal); R79.89 Other specified abnormal findings of blood chemistry; Z79.890 Hormone replacement therapy | CPT/HCPCS: 99213 ==

== ENCOUNTER → 2023-06-22 15:12 | Outpatient (BNVA) | payer BC, SELFPAY | PROVIDERS: PCP Nurse Practitioner; Visit Provider Nurse Practitioner | DX: R05.9 Cough, unspecified (principal); U07.1 COVID-19; H66.001 Acute suppurative otitis media without spontaneous rupture of ear drum, right ear | CPT/HCPCS: 87400; 87426 ==

== ENCOUNTER 2023-07-10 07:44 | Outpatient (CLI) | payer OTHER, BC, SELFPAY ==
[2023-07-10 08:30] LABS: Free T4 Free Thyroxine 1.62 ng/dL (0.82-1.77); Testosterone Total 231.2 ng/dL (249-836); Thyroid Stimulating Hormone 2.72 uIU/mL (0.27-4.20)
[2023-07-14 12:36] LABS: Testosterone, Free 61.6 pg/mL (46.0-224.0)
== END 2023-07-10 07:45 | disposition home or self-care (01) ==
LOC: LAB 07:45
PROVIDERS: PCP Nurse Practitioner; Visit Provider Internal Medicine
DX: E03.9 Hypothyroidism, unspecified (principal); R79.89 Other specified abnormal findings of blood chemistry
CPT/HCPCS: 36415; 84402; 84403; 84439; 84443

== ENCOUNTER → 2023-07-15 08:04 | Outpatient (BNVA) | payer OTHER, SELFPAY | PROVIDERS: PCP Nurse Practitioner; Visit Provider Internal Medicine | DX: E03.9 Hypothyroidism, unspecified (principal); R79.89 Other specified abnormal findings of blood chemistry; E66.9 Obesity, unspecified; Z79.890 Hormone replacement therapy; Z68.35 Body mass index [BMI] 35.0-35.9, adult | CPT/HCPCS: 99214 ==

== ENCOUNTER 2023-07-20 12:45 | Emergency (ER) | payer OTHER, SELFPAY ==
--- NOTE | 2023-07-20 12:46 | ECG_ITS ---
[facility] Test Date: 2023-07-20 Pat Name: Renny Arnett Department: Room: Gender: Male Clinical Psychology Teacher: : 1985 Requested By: Aileen Johnson Order Number: [id number] Cy MD: Candace Sharma M.D. Measurements Intervals [place] Rate: 93 P: 29 [place]: 157 QRS: 59 QRSD: 109 T: 46 QT: 341 QTc: 424 Interpretive Statements SINUS RHYTHM WITH SINUS ARRHYTHMIA Compared to ECG 04/15/2019 08:34:55 No significant changes Electronically Signed On 07-20-2023 19:29:24 DIAMOND DIE MAKER by Candace Sharma M.D. [email or web address] ruby memorial hospitalMiserWare/store/[id number]
[2023-07-20 12:56] VITALS: BP 147/88; PULSE 93; RESP 16; TEMP 36.6; O2SAT 98; BMI 35.2
[2023-07-20 13:24] LABS: Basophils % 0.3 %; Eosinophils # 0.1 10^3/uL (0.0-0.8); Hematocrit 44.6 % (37-53); Lymphocytes # 1.7 10^3/uL (0.8-4.8); Lymphocytes % 26.9 %; Mean Corpuscular HGB Conc 33.9 g/dL (30-55); Mean Corpuscular Hemoglobin 30.5 pg (27-33); Mean Corpuscular Volume 90.1 fl (82-101); Mean Platelet Volume 9.1 fL (7.4-10.4); Monocytes # 0.5 10^3/uL (0.2-0.9); Monocytes % 7.8 %; Neutrophils # 4.03 10^3/uL (1.8-7.7); Neutrophils % 63.8 %; Nucleated Red Blood Cells % 0 %; Platelet Count 213 10^3/cmm (157-399); Red Blood Count 4.95 10^6/uL (3.85-5.65); Red Cell Distribution Width 13.1 % (12.1-15.1); White Blood Count 6.31 10^3/uL (3.29-11.43)
[2023-07-20 13:34] LABS: INR 0.94 (0.8-1.2)
[2023-07-20 13:41] LABS: Alanine Aminotransferase 47 U/L (0-41); Albumin Level 4.4 g/dL (3.5-5.2); Alkaline Phosphatase 77 U/L (40-130); Anion Gap 11.8 (5-19); Aspartate Amino Transferase 31 U/L (0-40); Blood Urea Nitrogen 17 mg/dL (6-20); Calcium 8.9 mg/dL (8.5-10.5); Carbon Dioxide 27 mmol/L (22-29); Chloride 109 mmol/L (98-107); Globulin 2.4 g/dL (1.3-4.6); Glomerular Filtration Rate 67.8 mL/min (90-130); Glucose 79 mg/dL (65-115); Lipase 37 U/L (13-60); Osmolality Calculated 298 mOsm/kg (285-295); Potassium 3.8 mmol/L (3.5-5.1); Sodium 144 mmol/L (136-145); Total Bilirubin 0.2 mg/dL (0.15-1.2); Total Protein 6.8 g/dL (6.6-8.7); Troponin(5th) Baseline < 6 ng/L (0-15)
--- NOTE | 2023-07-20 14:37 | XRR_ITS ---
PROCEDURE INFORMATION: Exam: XR Chest Exam date and time: 07/20/2023 2:57 PM Age: 37 years old Clinical indication: Pain; Angina pectoris; Additional info: Chest pain TECHNIQUE: Imaging protocol: Radiologic exam of the chest. Views: 1 view. COMPARISON: CR XR chest 1V [id number] 12/22/2020 12:47 PM FINDINGS: Lungs: No focal consolidation. Pleural spaces: No evidence of pneumothorax. No evidence of pleural effusion. Heart/Mediastinum: Cardiomediastinal silhouette is within normal limits. Bones/joints: No evidence of acute osseous abnormality. XR/XR chest 1V portable [id number] IMPRESSION: 1. No acute cardiopulmonary abnormality.
--- NOTE | 2023-07-20 14:49 | ECG_ITS ---
[facility] Test Date: 2023-07-20 Pat Name: Renny Arnett Department: Room: Gender: Male Electronic Gluer: : 1985 Requested By: Aileen Johnson Order Number: [id number] Cy MD: Candace Sharma M.D. Measurements Intervals [place] Rate: 78 P: 35 [place]: 170 QRS: 44 QRSD: 108 T: 50 QT: 373 QTc: 425 Interpretive Statements SINUS RHYTHM Compared to ECG 07/20/2023 12:51:15 Sinus arrhythmia no longer present Electronically Signed On 07-20-2023 19:37:13 STILL OPERATOR BATCH OR CONTINUOUS by Candace Sharma M.D. [email or web address] Cyber Securitymerit health biloxiMoreixchillicothe hospitalUrge/store/OM/[id number]
--- NOTE | 2023-07-20 14:50 | ED_ITS ---
HPI - Chest Pain 2 General: Chief Complaint: Chest Pain Stated Complaint: Chest Pains Time Seen by Provider: 07/20/23 14:36 Source: patient Mode of arrival: ambulatory Limitations: no limitations History of Present Illness: Patient is a 37-year-old presents to ED today with complaint of left-sided chest pain that began a few hours ago while he was at work. Patient states he woke up this morning asymptomatic. He states he started developing pain on the left side of his chest after being at work for 30 to 45 minutes. He describes the pain as sharp and pressure-like. He states symptoms seem to come and go but has only went a few minutes without discomfort before pain returns again. He states he does not feel short of breath at rest but does report he has noticed over the past few days he has become winded easily . Patient has not noticed any calf pain or swelling to his lower extremities. He has not been running fevers. No cough or other URI-like symptoms. He does report a COVID infection a few weeks ago. Patient denies previous cardiac or pulmonary history. MD complaint: chest pain Onset (ago): hour(s) Timing of current episode: episodic and still present Prior episodes: No Onset: during rest Pain location: left chest Pain radiation: none Quality: other (pressure) Relieving factors: nothing Exacerbating factors: nothing Context: other (COVID illness a few weeks ago) Associated symptoms: Reports dyspnea (not currently at rest; has noticed dyspnea with exertion recently ); Deny abdominal pain, fever(s), nausea, palpitations, syncope or vomiting Treatment prior to arrival: none Risk Factors: Coronary artery disease risk factors: none Thoracic aortic dissection risk factors: none Review of Systems 2 Const: Denies: fever(s), chills, body aches, fatigue or malaise Eyes: Denies: change in vision or blurry vision Card: Reports: chest pain and dyspnea on exertion; Denies: palpitations, irregular heart rhythm, edema, swelling of feet/ankles, lightheadedness, syncope, pre-syncope, orthopnea, leg pain with exertion or acrocyanosis Resp: Reports: dyspnea (not currently at rest; has noticed dyspnea with exertion recently ); Denies: productive cough, non-productive cough, wheezing, pain on inspiration, change in phlegm color, hemoptysis or chest congestion GI: Denies: abdominal pain, nausea, vomiting, heartburn or diarrhea : Denies: difficulty urinating or dysuria Musc: Denies: neck pain, back pain, extremity pain, extremity swelling, joint pain, joint swelling, joint redness or joint warmth Skin/Breast: Denies: rash Neuro: Denies: headache(s), numbness in extremities, weakness in extremities, sensory changes or dizziness PFSH ED 2 PFSH: Medical History Blood in stool Social History Smoking and tobacco/nicotine status: never used tobacco/nicotine Physical Exam 2 Const: COMMON NORMALS: no acute distress, patient oriented x3, no limitations, alert and well nourished GENERAL APPEARANCE: cooperative NUTRITIONAL APPEARANCE: overweight ORIENTATION/CONSCIOUSNESS: Yes awake, Yes oriented to person, Yes oriented to place and Yes oriented to time HENMT: COMMON NORMALS: normocephalic and atraumatic HEAD & SCALP: normal to inspection, normocephalic and atraumatic Neck/C-Spine: COMMON NORMALS: full ROM, no lymphadenopathy, supple and no meningeal signs Chest: COMMONS NORMALS: normal inspection of the chest and normal palpation of entire chest wall Resp: COMMON NORMALS: normal respiratory effort and clear to auscultation bilaterally AUSCULTATION: clear to auscultation bilaterally Cardio: COMMON NORMALS: regular rate and regular rhythm RATE: regular rate RHYTHM: regular rhythm GI: COMMON NORMALS: Normal to inspection, nondistended, normoactive bowel sounds present, Soft to palpation, non-tender, No hepatosplenomegaly present and no masses PALPATION: Yes Soft to palpation and Yes No hepatosplenomegaly present : COMMON NORMALS: Yes no CVA tenderness BLADDER/KIDNEY EXAM: Yes no CVA tenderness Back/Pelvis: COMMON NORMALS: no CVA tenderness and thoracic and lumbar spine normal to inspection Extremity: COMMON NORMALS: normal to inspection, no clubbing, cyanosis or edema and no calf tenderness GENERAL: Yes normal exam except as noted Neuro: COMMON NORMALS: patient oriented x3, moves all extremities, no focal motor deficits and no sensory deficits noted SENSORIUM/ORIENTATION: Yes alert, Yes oriented to person, Yes oriented to place and Yes oriented to time MENINGEAL SIGNS: Yes no meningeal signs Skin: COMMON NORMALS: no rashes or lesions noted GENERAL SKIN EXAM: no rashes or lesions noted Course 2 Vital Signs: Vital signs: Vital Signs Temperature 97.9 F 07/20/23 12:56 Pulse Rate 93 07/20/23 12:56 Respiratory Rate 16 07/20/23 12:56 Blood Pressure 147/88 07/20/23 12:56 Pulse Oximetry 98 07/20/23 12:56 Oxygen Delivery Me thod Room Air 07/20/23 12:56 MDM - Chest Pain Medical Decision Making Patient clinically appears in no acute distress. He arrives with stable vital signs. His blood work all is reassuring. Patient has a normal baseline and repeat troponin. He has a normal baseline and repeat EKG. D-dimer was added due to the complaint of dyspnea with exertion and recent COVID diagnosis. D- dimer was negative. CXR is unremarkable. Patient is requesting CT imaging of his chest stating that will provide reassurance and to make sure we are not missing anything . Explained to him that the risks of radiation does not outweigh benefit as the CT scan would not provide any additional information apart from what was already obtained during his workup. At this time life- threatening etiologies have effectively been ruled out and I would like him to follow-up with his primary care provider. Return ED precautions given. Medical Records I reviewed the patient's medical records. Lab Data I reviewed the patient's lab results. 07/20/23 13:12 07/20/23 13:12 Radiology Impressions Chest X-Ray 07/20/23 14:37 IMPRESSION: 1. No acute cardiopulmonary abnormality. Laboratory Results WBC 6.31 10^3/uL (3.29-11.43) 07/20/23 13:12 RBC 4.95 10^6/uL (3.85-5.65) 07/20/23 13:12 Hgb 15.10 g/dL (11.27-16.99) 07/20/23 13:12 Hct 44.6 % (37-53) 07/20/23 13:12 MCV 90.1 fl (82-101) 07/20/23 13:12 MCH 30.5 pg (27-33) 07/20/23 13:12 MCHC 33.9 g/dL (30-55) 07/20/23 13:12 RDW 13.1 % (12.1-15.1) 07/20/23 13:12 Plt Count 213 10^3/cmm (157-399) 07/20/23 13:12 MPV 9.1 fL (7.4-10.4) 07/20/23 13:12 Neut % (Auto) 63.8 % 07/20/23 13:12 Lymph % (Auto) 26.9 % 07/20/23 13:12 [place] % (Auto) 7.8 % 07/20/23 13:12 Eos % (Auto) 1.0 % 07/20/23 13:12 Baso % (Auto) 0.3 % 07/20/23 13:12 Neut # (Auto) 4.03 10^3/uL (1.8-7.7) 07/20/23 13:12 Lymph # (Auto) 1.7 10^3/uL (0.8-4.8) 07/20/23 13:12 [place] # (Auto) 0.5 10^3/uL (0.2-0.9) 07/20/23 13:12 Eos # (Auto) 0.1 10^3/uL (0.0-0.8) 07/20/23 13:12 Baso # (Auto) 0.0 10^3/uL (0.0-0.1) 07/20/23 13:12 Nucleated RBC % (auto) 0 % 07/20/23 13:12 Nucleated RBCs # 0.0 /100WBC 07/20/23 13:12 PT 12.90 SECONDS (12.1-14.9) 07/20/23 13:12 INR 0.94 (0.8-1.2) 07/20/23 13:12 D-Dimer 0.28 ug/mLFEU (0-0.59) 07/20/23 13:12 Sodium 144 mmol/L (136-145) 07/20/23 13:12 Potassium 3.8 mmol/L (3.5-5.1) 07/20/23 13:12 Chloride 109 mmol/L (98-107) H 07/20/23 13:12 Carbon Dioxide 27 mmol/L (22-29) 07/20/23 13:12 Anion Gap 11.8 (5-19) 07/20/23 13:12 BUN 17 mg/dL (6-20) 07/20/23 13:12 Creatinine 1.2 mg/dL (0.7-1.2) 07/20/23 13:12 GFR Calculation 67.8 mL/min (90-130) L 07/20/23 13:12 Glucose 79 mg/dL (65-115) 07/20/23 13:12 Calculated Osmolality 298 mOsm/kg (285-295) H 07/20/23 13:12 Calcium 8.9 mg/dL (8.5-10.5) 07/20/23 13:12 Total Bilirubin 0.2 mg/dL (0.15-1.2) 07/20/23 13:12 AST 31 U/L (0-40) 07/20/23 13:12 ALT 47 U/L (0-41) H 07/20/23 13:12 Alkaline Phosphatase 77 U/L (40-130) 07/20/23 13:12 Troponin T Baseline < 6 ng/L (0-15) 07/20/23 13:12 Troponin T 120 Minute 6.62 ng/L (0-15) 07/20/23 14:59 Delta Troponin T 0.35126 ABS# (0-10) 07/20/23 14:59 Total Protein 6.8 g/dL (6.6-8.7) 07/20/23 13:12 Albumin 4.4 g/dL (3.5-5.2) 07/20/23 13:12 Globulin 2.4 g/dL (1.3-4.6) 07/20/23 13:12 Lipase 37 U/L (13-60) 07/20/23 13:12 All radiology interpretation(s) finalized by discharge Discharge Plan Discharge Patient Disposition: Home Clinical Impression: Non-cardiac chest pain Condition: Stable Prescriptions: No Action wzcjjrnzpg-uzlprnjtxaokk-eaov [Fioricet] 50-300-40 mg capsule 1 cap PO Q8H PRN (Reason: Pain) Qsymia 7.5-46 mg capsule, ER multiphase 24 hr 1 cap PO DAILY Qty: 30 0RF Rx Instructions: start after finishing lower dose promethazine-DM 6.25-15 mg/5 mL syrup 5 ml PO Q4H PRN (Reason: cough) Qty: 118 0RF Rx Instructions: Do not exceed more than 30ml/24hour period (6 doses) levothyroxine [Synthroid] 100 mcg tablet 100 mcg PO DAILY Qty: 90 0RF Vitamin C 500 mg Tablet 500 mg PO DAILY fluticasone propionate 50 mcg/actuation spray,suspension 2 spray INTRANASAL DAILY Qsymia 3.75-23 mg capsule, ER multiphase 24 hr 1 cap PO DAILY clomiphene citrate 50 mg tablet 25 mg PO EVERY OTHER DAY Discharge Orders: Discharge ED (Routine); Ordered 07/20/23 Ordered By: Nichole Danielle Referrals: Leslie Stephenson FNP [Primary Care Provider] - Patient Instructions: Noncardiac Chest Pain (ED) Activity Restrictions/Additional Instructions: As we discussed your emergency department workup here including baseline and repeat troponins as well as baseline and repeat EKGs are all reassuring. Your chest x-ray is normal. The D-dimer test that we ran for rule out of a blood clot in your lungs was negative. As we discussed from the emergency department we are here to rule out life-threatening etiologies. At this time I would like you to follow-up with your primary care provider for further evaluation of your chest pain if it persists. Coding Level of Care Code ED Chief Radiologic Technologist for Alphonse Story
[2023-07-20 15:02] VITALS: BP 142/89; PULSE 81; O2SAT 97
[2023-07-20 15:27] LABS: Troponin 5 2HR 6.62 ng/L (0-15)
[2023-07-20 15:31] LABS: D Dimer 0.28 ug/mLFEU (0-0.59)
[2023-07-20 16:19] VITALS: BP 165/97; PULSE 78; O2SAT 97
--- NOTE | 2023-07-20 16:34 | PC.NURSE ---
this RN misclicked 'visitors with patient' when doing rounding. pt had no visitors when this RN was in the room.
== END 2023-07-20 16:21 | disposition home or self-care (01) ==
PROVIDERS: Emergency Medicine; Emergency Provider Physician Assistant; PCP Nurse Practitioner
DX: R07.89 Other chest pain (principal)
CPT/HCPCS: 36415; 71045; 80053; 83690; 84484; 85025; 85378; 85610; 93005; 99285

== ENCOUNTER 2023-07-24 07:59 | Emergency (ER) | payer OTHER, SELFPAY ==
[2023-07-24 08:02] VITALS: BP 140/104; PULSE 80; RESP 16; TEMP 36.4; O2SAT 94; BMI 35.2
--- NOTE | 2023-07-24 08:02 | ECG_ITS ---
[facility] Test Date: 2023-07-24 Pat Name: Renny Arnett Department: Room: Gender: Male Investigations Chief: : 1985 Requested By: Stefan Aparicio Order Number: [id number] Cy MD: Khurram Hargrove M.D. Measurements Intervals [place] Rate: 73 P: 48 [place]: 170 QRS: 55 QRSD: 103 T: 63 QT: 367 QTc: 407 Interpretive Statements SINUS RHYTHM Compared to ECG 07/20/2023 14:49:58 No significant changes Electronically Signed On 07-25-2023 23:16:18 CAN COVERER by Khurram Hargrove M.D. [email or web address] regional medical [email or web address] [email or web address]. [email or web address].[facility].[email or web address]/store/NU/[id number] f
--- NOTE | 2023-07-24 08:05 | XR_ITS ---
WS: [id number] Portable AP upright chest, 07/24/2023 Clinical Data: chest pain Comparison: Portable chest, 07/20/2023 Findings: No nodules, masses or effusions are seen. The heart is normal. The pulmonary vascularity is not increased. No pneumonia or pneumothorax is seen. There are monitor leads on the chest wall. Impression: Negative chest.
[2023-07-24 08:14] VITALS: BP 140/104; PULSE 77; RESP 16; O2SAT 96
[2023-07-24 08:18] LABS: Basophils % 0.4 %; Eosinophils # 0.1 10^3/uL (0.0-0.8); Eosinophils % 1.4 %; Hematocrit 47.9 % (37-53); Lymphocytes # 1.6 10^3/uL (0.8-4.8); Lymphocytes % 32.1 %; Mean Corpuscular HGB Conc 33.8 g/dL (30-55); Mean Corpuscular Hemoglobin 29.6 pg (27-33); Mean Corpuscular Volume 87.4 fl (82-101); Mean Platelet Volume 8.7 fL (7.4-10.4); Monocytes # 0.4 10^3/uL (0.2-0.9); Monocytes % 7.6 %; Neutrophils # 2.92 10^3/uL (1.8-7.7); Neutrophils % 58.3 %; Nucleated Red Blood Cells % 0 %; Platelet Count 237 10^3/cmm (157-399); Red Blood Count 5.48 10^6/uL (3.85-5.65); Red Cell Distribution Width 13.2 % (12.1-15.1); White Blood Count 5.01 10^3/uL (3.29-11.43)
--- NOTE | 2023-07-24 08:18 | ED_ITS ---
HPI - Chest Pain 2 General: Chief Complaint: Chest Pain Stated Complaint: chest pains Time Seen by Provider: 07/24/23 08:05 Source: patient Mode of arrival: ambulatory History of Present Illness: 37-year-old male presents emergency room with gum plaints of 4 days of chest pain. He was seen several days ago with episodes of chest pain cardiac enzymes EKG were negative D-dimer was negative chest x-ray was unremarkable he continues to have retrosternal what he describes as burning chest pain without radiation nothing exacerbates or relieves his symptoms. On arrival here he is neither hypoxic tachypneic or tachycardic he has no personal history of heart disease, does relate a family hx of CAD complaint: chest pain Onset (ago): day(s) (5) Timing of current episode: constant Prior episodes: Yes Onset: during rest Pain location: substernal Pain radiation: none Quality: burning Relieving factors: nothing Exacerbating factors: nothing Associated symptoms: Deny abdominal pain, diaphoresis, dyspnea, fever(s), leg edema, nausea, palpitations, sense of impending doom, syncope or vomiting Review of Systems 2 Const: Denies: fever(s) or diaphoresis Card: Denies: palpitations or syncope Resp: Denies: dyspnea GI: Denies: abdominal pain, nausea or vomiting : Denies: dysuria, urinary frequency or urinary urgency Musc: Denies: neck pain or back pain Skin/Breast: Denies: rash PFSH ED 2 PFSH: Medical History Blood in stool Social History Smoking and tobacco/nicotine status: never used tobacco/nicotine Physical Exam 2 Const: COMMON NORMALS: no acute distress GENERAL APPEARANCE: cooperative and comfortable ORIENTATION/CONSCIOUSNESS: Yes awake, Yes oriented to person, Yes oriented to place and Yes oriented to time HENMT: COMMON NORMALS: normocephalic, atraumatic and hearing grossly normal bilaterally HEAD & SCALP: normocephalic and atraumatic Resp: COMMON NORMALS: normal respiratory effort, No retractions, No use of accessory muscles and clear to auscultation bilaterally AUSCULTATION: clear to auscultation bilaterally Cardio: COMMON NORMALS: regular rate, regular rhythm and No murmurs present (Cardio) RATE: regular rate RHYTHM: regular rhythm GI: COMMON NORMALS: Soft to palpation and No hepatosplenomegaly present A USCULTATION: Yes normoactive bowel sounds PALPATION: Yes Soft to palpation, No Tenderness to palpation present (GI), No Guarding due to palpation present (GI) and Yes No hepatosplenomegaly present Extremity: COMMON NORMALS: normal to inspection, capillary refill normal, no clubbing, cyanosis or edema, no calf tenderness and no pedal edema Neuro: SENSORIUM/ORIENTATION: Yes oriented to person, Yes oriented to place and Yes oriented to time Skin: COMMON NORMALS: no rashes or lesions noted GENERAL SKIN EXAM: no rashes or lesions noted Course 2 Vital Signs: Vital signs: Vital Signs Temperature 97.6 F 07/24/23 10:59 Pulse Rate 71 07/24/23 10:59 Respiratory Rate 14 07/24/23 10:59 Blood Pressure 152/82 07/24/23 10:59 Pulse Oximetry 95 07/24/23 10:59 Oxygen Delivery Me thod Room Air 07/24/23 10:07 MDM - Chest Pain Medical Decision Making D-dimer negative chest x-ray nothing acute. No signs of pneumonia. He is not hypoxic or tachycardic he is mildly hypertensive. EKG does not show any acute ST changes his troponin trend is negative. He had his symptoms for 4 days. Recommend starting Protonix 40 mg tablets twice a day for 10 to 14 days and then decreasing to once daily. Also recommend setting up an outpatient graded exercise stress test. Patient expressed significant concern about the risk of coronary artery disease because of his family history reviewed the laboratory and EKG findings with him currently there is no sign of acute coronary syndrome. It would be prudent for him to have stress testing as an outpatient but there is no acute emergent issue at present based on the history and exam and laboratory workup done today. Patient is requesting CT advised him at this point there is no indication for an emergent CTA of the chest he is not tachycardic or hypoxic and D-dimers are very low. While the recent history of COVID does have some risk for PE given his presentation vital signs on laboratory findings this effectively rules out PE of clinical significance at this time. Patient declines offer for referral to [facility] for cardiac stress testing. Medical Records I reviewed the patient's medical records. Lab Data I reviewed the patient's lab results. 07/24/23 08:10 07/24/23 08:10 Laboratory Results WBC 5.01 10^3/uL (3.29-11.43) 07/24/23 08:10 RBC 5.48 10^6/uL (3.85-5.65) 07/24/23 08:10 Hgb 16.20 g/dL (11.27-16.99) 07/24/23 08:10 Hct 47.9 % (37-53) 07/24/23 08:10 MCV 87.4 fl (82-101) 07/24/23 08:10 MCH 29.6 pg (27-33) 07/24/23 08:10 MCHC 33.8 g/dL (30-55) 07/24/23 08:10 RDW 13.2 % (12.1-15.1) 07/24/23 08:10 Plt Count 237 10^3/cmm (157-399) 07/24/23 08:10 MPV 8.7 fL (7.4-10.4) 07/24/23 08:10 Neut % (Auto) 58.3 % 07/24/23 08:10 Lymph % (Auto) 32.1 % 07/24/23 08:10 [place] % (Auto) 7.6 % 07/24/23 08:10 Eos % (Auto) 1.4 % 07/24/23 08:10 Baso % (Auto) 0.4 % 07/24/23 08:10 Neut # (Auto) 2.92 10^3/uL (1.8-7.7) 07/24/23 08:10 Lymph # (Auto) 1.6 10^3/uL (0.8-4.8) 07/24/23 08:10 [place] # (Auto) 0.4 10^3/uL (0.2-0.9) 07/24/23 08:10 Eos # (Auto) 0.1 10^3/uL (0.0-0.8) 07/24/23 08:10 Baso # (Auto) 0.0 10^3/uL (0.0-0.1) 07/24/23 08:10 Nucleated RBC % (auto) 0 % 07/24/23 08:10 Nucleated RBCs # 0.0 /100WBC 07/24/23 08:10 D-Dimer <= 0.27 ug/mLFEU (0-0.59) 07/24/23 08:10 Sodium 144 mmol/L (136-145) 07/24/23 08:10 Potassium 3.9 mmol/L (3.5-5.1) 07/24/23 08:10 Chloride 106 mmol/L (98-107) 07/24/23 08:10 Carbon Dioxide 28 mmol/L (22-29) 07/24/23 08:10 Anion Gap 13.9 (5-19) 07/24/23 08:10 BUN 13 mg/dL (6-20) 07/24/23 08:10 Creatinine 0.9 mg/dL (0.7-1.2) 07/24/23 08:10 GFR Calculation 94.4 mL/min (90-130) 07/24/23 08:10 Glucose 95 mg/dL (65-115) 07/24/23 08:10 Calculated Osmolality 298 mOsm/kg (285-295) H 07/24/23 08:10 Calcium 9.7 mg/dL (8.5-10.5) 07/24/23 08:10 Total Bilirubin 0.5 mg/dL (0.15-1.2) 07/24/23 08:10 AST 33 U/L (0-40) 07/24/23 08:10 ALT 47 U/L (0-41) H 07/24/23 08:10 Alkaline Phosphatase 76 U/L (40-130) 07/24/23 08:10 Troponin T Baseline 8 ng/L (0-15) 07/24/23 08:10 Troponin T 120 Minute 6.50 ng/L (0-15) 07/24/23 10:00 Delta Troponin T -1.50 ABS# (0-10) L 07/24/23 10:00 Total Protein 7.2 g/dL (6.6-8.7) 07/24/23 08:10 Albumin 4.8 g/dL (3.5-5.2) 07/24/23 08:10 Globulin 2.4 g/dL (1.3-4.6) 07/24/23 08:10 All radiology interpretation(s) finalized by discharge Discharge Plan Discharge Patient Disposition: Home Clinical Impression: Atypical chest pain Condition: Stable Prescriptions: New Protonix 40 mg tablet,delayed release (DR/EC) 40 mg PO BID Qty: 60 0RF No Action levothyroxine [Synthroid] 100 mcg tablet 100 mcg PO DAILY Qty: 90 0RF ascorbic acid (vitamin C) [Vitamin C] 500 mg Tablet 500 mg PO DAILY fluticasone propionate 50 mcg/actuation spray,suspension See Rx Instructions .ROUTE .COMPLEX Rx Instructions: 1 spray intranasally once daily as needed for rhinitis. Must be used as directed for a minimum of 21 days to provide adequate benefits. Instructed not to use but but for 2 weeks. fexofenadine 180 mg Tablet See Rx Instructions .ROUTE .COMPLEX Rx Instructions: TAKE 1 TABLET BY MOUTH DIRECTED, TITRATE BETWEEN TAKING 1 TABLET 2 TO 4 TIMES DAILY FOR ALLERGY SYMPTOMS. lisinopril-hydrochlorothiazide 10-12.5 mg tablet 1 tab PO DAILY Discharge Orders: Discharge ED (Routine); Ordered 07/24/23 Ordered By: Stefan Ramos Referrals: Leslie Stephenson FNP [Primary Care Provider] - Discharge Diet: Usual diet Discharge Activity: Resume usual activity Patient Instructions: Diet for Stomach Ulcers and Gastritis (ED), GERD (Gastroesophageal Reflux Disease) (ED), Opioid Safety, Pain Management Activity Restrictions/Additional Instructions: Thank you for choosing [facility] for your healthcare needs today. Please realize this is an emergency room and that we are providing you with a medical screening exam and this may not be complete and all inclusive of all the testing and or work up that you may need to determine your ailment or severity of your illness. It is very important that you follow up as instructed or that you return to the Emergency Department should you have concerns or if your condition changes or worsens in any way. You are seen today for chest pain. Your cardiac enzymes and EKG are negative your D-dimer is negative (this screens for pulmonary embolism. Recommend you start Protonix 40 mg twice a day for 10 days then change to once daily. You should follow-up with your primary care doctor in the next 10 to 14 days. Case management will call to have you set up for a cardiac stress test. Coding Level of Care Code ED Laboratory Technologist for [facility] Story
[2023-07-24] MEDS: lidocaine 2% viscous 15 ML, aluminum-mag hydrox-simethicon 30 ML, sucralfate oral liq 1 GM PO (08:22)
[2023-07-24 08:35] LABS: D Dimer <= 0.27 ug/mLFEU (0-0.59)
[2023-07-24 08:38] LABS: Troponin(5th) Baseline 8 ng/L (0-15)
[2023-07-24 08:42] LABS: Alanine Aminotransferase 47 U/L (0-41); Albumin Level 4.8 g/dL (3.5-5.2); Alkaline Phosphatase 76 U/L (40-130); Anion Gap 13.9 (5-19); Aspartate Amino Transferase 33 U/L (0-40); Blood Urea Nitrogen 13 mg/dL (6-20); Calcium 9.7 mg/dL (8.5-10.5); Carbon Dioxide 28 mmol/L (22-29); Chloride 106 mmol/L (98-107); Globulin 2.4 g/dL (1.3-4.6); Glomerular Filtration Rate 94.4 mL/min (90-130); Glucose 95 mg/dL (65-115); Osmolality Calculated 298 mOsm/kg (285-295); Potassium 3.9 mmol/L (3.5-5.1); Sodium 144 mmol/L (136-145); Total Bilirubin 0.5 mg/dL (0.15-1.2); Total Protein 7.2 g/dL (6.6-8.7)
--- NOTE | 2023-07-24 09:29 | PC.PHAR ---
PT IS [facility]ED [facility] FOR [facility] LIST 9:30AM 07/24/23
--- NOTE | 2023-07-24 09:58 | PC.PHAR ---
[facility]' [facility] DO[facility] NOT SHOW VIT C 500MG. THE FOLLOWING MEDS ARE NO LONGER ON PT MED LIST: FIORICET 50-300-40MG, CLOMIPHENE CIT. 50MG, PROMETHAZINE DM SYR, QSYMIA 3.75-23 AND QSYMIA 7.5-46. 2/08/15
--- NOTE | 2023-07-24 10:06 | ECG_ITS ---
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 Measurements Intervals [place] Rate: 71 P: 39 MI: 180 QRS: 51 QRSD: 104 T: 60 QT: 372 QTc: 405 Interpretive Statements SINUS RHYTHM WITH SINUS ARRHYTHMIA Compared to ECG 07/24/2023 08:02:41 No significant changes Electronically Signed On 07-25-2023 23:28:01 SYNCHRONIZER by Khurram Hargrove M.D. [id number]
[2023-07-24 10:07] VITALS: BP 152/82; PULSE 71; RESP 14; O2SAT 95
--- NOTE | 2023-07-24 10:18 | DCPLANNER ---
A message was sent to heart care on 07/24/23 at 1020 for a graded stress test for [facility]
[2023-07-24 10:59] VITALS: BP 152/82; PULSE 71; RESP 14; TEMP 36.4; O2SAT 95
== END 2023-07-24 11:01 | disposition home or self-care (01) ==
PROVIDERS: Emergency Provider Family Medicine; PCP Nurse Practitioner
DX: R07.89 Other chest pain (principal)
CPT/HCPCS: 36415; 71045; 80053; 84484; 85025; 85378; 93005; 99285

== ENCOUNTER → 2023-09-03 07:48 | Outpatient (BNVA) | payer OTHER, SELFPAY | PROVIDERS: PCP Nurse Practitioner; Visit Provider Internal Medicine | DX: E03.9 Hypothyroidism, unspecified (principal); R79.89 Other specified abnormal findings of blood chemistry; E55.9 Vitamin D deficiency, unspecified; E66.9 Obesity, unspecified; Z68.36 Body mass index [BMI] 36.0-36.9, adult; Z79.890 Hormone replacement therapy | CPT/HCPCS: 99214 ==

== ENCOUNTER 2023-10-22 08:07 | Outpatient (CLI) | payer OTHER, SELFPAY ==
[2023-10-22 08:27] VITALS: PULSE 90; RESP 18; O2SAT 98
[2023-10-22] MEDS: albuterol 2.5 mg/3 mL Neb INHALATION (08:27)
[2023-10-22 08:32] VITALS: PULSE 92
== END 2023-10-22 08:08 | disposition home or self-care (01) ==
LOC: RT 08:08
PROVIDERS: PCP Nurse Practitioner; Visit Provider Nurse Practitioner
DX: J45.909 Unspecified asthma, uncomplicated (principal)
CPT/HCPCS: 94060; 94729

== ENCOUNTER → 2023-10-23 08:16 | Outpatient (BNVA) | payer OTHER, SELFPAY | PROVIDERS: PCP Nurse Practitioner; Visit Provider Internal Medicine | DX: E03.9 Hypothyroidism, unspecified (principal); R79.89 Other specified abnormal findings of blood chemistry; E66.9 Obesity, unspecified; E55.9 Vitamin D deficiency, unspecified; Z79.890 Hormone replacement therapy; Z68.36 Body mass index [BMI] 36.0-36.9, adult; G47.33 Obstructive sleep apnea (adult) (pediatric); Z99.89 Dependence on other enabling machines and devices | CPT/HCPCS: 99214 ==

== ENCOUNTER → 2023-11-23 08:16 | Outpatient (BNVA) | payer OTHER, SELFPAY | PROVIDERS: PCP Nurse Practitioner; Visit Provider Internal Medicine | DX: E03.9 Hypothyroidism, unspecified (principal); R79.89 Other specified abnormal findings of blood chemistry; E66.9 Obesity, unspecified; E55.9 Vitamin D deficiency, unspecified; R71.8 Other abnormality of red blood cells; Z79.890 Hormone replacement therapy; Z68.36 Body mass index [BMI] 36.0-36.9, adult | CPT/HCPCS: 99214 ==

== ENCOUNTER 2023-12-08 13:45 | Emergency (ER) | payer OTHER, SELFPAY ==
[2023-12-08 14:11] VITALS: BP 153/100; PULSE 75; RESP 18; TEMP 36.8; O2SAT 97; BMI 36.3
[2023-12-08 15:00] VITALS: BP 140/97; PULSE 79; RESP 16; O2SAT 97
--- NOTE | 2023-12-08 15:08 | W.ED.HA ---
HPI - Headache General: Chief Complaint: Headache Stated Complaint: headache/migraine Time Seen by Provider: 12/08/23 14:39 Source: patient Mode of arrival: ambulatory Limitations: no limitations History of Present Illness: 37-year-old male has a history of migraine headache states he had a migraine over the last 3 days stated it waxes and wanes he does have photophobia and phonophobia rates his headache a 7 out of 10 currently similar to his previous migraines denies any sudden onset denies any fevers he denies any head injuries. Associated symptoms: Deny chest pain, fever(s), nausea or vomiting Review of Systems Const: Denies: fever(s), chills, body aches or change in appetite Eyes: Denies: blurry vision or eye discomfort ENMT: Denies: throat pain or dental pain Card: Denies: chest pain Resp: Denies: dyspnea GI: Denies: abdominal pain, nausea, vomiting or diarrhea Musc: Denies: neck pain or back pain Neuro: Reports: headache(s) PFSH ED PFSH: Medical History Blood in stool Social History Smoking and tobacco/nicotine status: never used tobacco/nicotine Physical Exam Const: COMMON NORMALS: no acute distress, patient oriented x3 and healthy appearing HENMT: COMMON NORMALS: normocephalic and atraumatic HEAD & SCALP: normocephalic and atraumatic Eye: COMMON NORMALS: Equal, round and reactive pupils present and EOMs intact bilaterally PUPIL: Yes Equal, round and reactive pupils present Neck/C-Spine: COMMON NORMALS: full ROM and supple Chest: COMMONS NORMALS: normal inspection of the chest Resp: COMMON NORMALS: normal respiratory effort Cardio: COMMON NORMALS: regular rate, regular rhythm and No murmurs present (Cardio) RATE: regular rate RHYTHM: regular rhythm Extremity: COMMON NORMALS: normal to inspection and full ROM Neuro: COMMON NORMALS: patient oriented x3, moves all extremities and no focal motor deficits Psych: COMMON NORMALS: mental status grossly normal, Normal thought process present and cooperative THOUGHT PROCESS: Normal thought process present Skin: COMMON NORMALS: no rashes or lesions noted and no wounds GENERAL SKIN EXAM: no rashes or lesions noted Course Vital Signs: Vital signs: Vital Signs Temperature 98.3 F 12/08/23 14:11 Pulse Rate 75 12/08/23 14:11 Respiratory Rate 18 12/08/23 14:11 Blood Pressure 153/100 12/08/23 14:11 Pulse Oximetry 97 12/08/23 14:11 Oxygen Delivery Me thod Room Air 12/08/23 14:11 MDM - Headache Medical Decision Making Patient presents with headaches consistent with migraine headache he has no signs of meningitis or subarachnoid hemorrhage he feels much improved here after meds. He is stable for discharge we will put a referral in for neurology he is return if worsening he understands agrees to plan Medical Records I reviewed the patient's medical records. No radiology studies performed this visit Discharge Plan Discharge Patient Disposition: Home Clinical Impression: Migraine Condition: Stable Prescriptions: No Action Qsymia 7.5-46 mg capsule, ER multiphase 24 hr 1 cap PO DAILY Qty: 30 0RF levothyroxine [Synthroid] 100 mcg tablet 100 mcg PO DAILY Qty: 90 0RF clomiphene citrate 50 mg tablet 25 mg PO .every other day Qty: 60 0RF Rx Instructions: 25mg every other day ascorbic acid (vitamin C) [Vitamin C] 500 mg Tablet 500 mg PO DAILY fexofenadine 180 mg Tablet See Rx Instructions .ROUTE .COMPLEX Rx Instructions: TAKE 1 TABLET BY MOUTH DIRECTED, TITRATE BETWEEN TAKING 1 TABLET 2 TO 4 TIMES DAILY FOR ALLERGY SYMPTOMS. 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
[2023-12-08] MEDS: ketorolac 30 mg/mL INJ 15 MG IVP (15:35)
[2023-12-08] MEDS: metoclopramide 5 mg/mL SDV 2 mL 10 MG IVP (15:36)
[2023-12-08] MEDS: diphenhydrAMINE 50 mg/mL SDV 1mL IVP (15:36)
[2023-12-08] MEDS: sodium chloride 0.9% 1,000 ML 999 ML IV (15:36)
[2023-12-08 16:00] VITALS: BP 143/100; PULSE 74; RESP 18; O2SAT 97
[2023-12-08 16:34] VITALS: BP 134/97; PULSE 82; RESP 18; O2SAT 94
--- NOTE | 2023-12-08 16:40 | PC.NURSE ---
PT REPORTS NAUSEA AND HEAD PAIN HAS RESOLVED
[2023-12-08 16:41] VITALS: BP 134/97; PULSE 74; RESP 18; O2SAT 99
--- NOTE | 2023-12-10 07:30 | DCPLANNER ---
messaged neuro for er f/u
== END 2023-12-08 16:42 | disposition home or self-care (01) ==
PROVIDERS: Emergency Provider Emergency Medicine; PCP Nurse Practitioner
DX: G43.909 Migraine, unspecified, not intractable, without status migrainosus (principal)
CPT/HCPCS: 96374; 96375; 99284; J1200; J1885; J2765; J7030

== ENCOUNTER → 2023-12-28 07:56 | Outpatient (BNVA) | payer OTHER, SELFPAY | PROVIDERS: PCP Nurse Practitioner; Visit Provider Internal Medicine | DX: E03.9 Hypothyroidism, unspecified (principal); R79.89 Other specified abnormal findings of blood chemistry; E66.9 Obesity, unspecified; E55.9 Vitamin D deficiency, unspecified; R71.8 Other abnormality of red blood cells; Z68.36 Body mass index [BMI] 36.0-36.9, adult; Z79.890 Hormone replacement therapy | CPT/HCPCS: 99214 ==

== ENCOUNTER 2024-01-11 08:23 | Emergency (ER) | payer OTHER, SELFPAY ==
[2024-01-11 08:29] VITALS: BP 135/103; PULSE 89; RESP 18; TEMP 36.7; O2SAT 95; BMI 36.5
[2024-01-11 09:19] LABS: Basophils % 0.3 %; Eosinophils # 0.1 10^3/uL (0.0-0.8); Eosinophils % 0.7 %; Hematocrit 52.6 % (37-53); Lymphocytes # 1.6 10^3/uL (0.8-4.8); Lymphocytes % 21.8 %; Mean Corpuscular HGB Conc 33.5 g/dL (30-55); Mean Corpuscular Hemoglobin 29.9 pg (27-33); Mean Corpuscular Volume 89.5 fl (82-101); Mean Platelet Volume 9.1 fL (7.4-10.4); Monocytes # 0.6 10^3/uL (0.2-0.9); Monocytes % 7.7 %; Neutrophils # 5.15 10^3/uL (1.8-7.7); Neutrophils % 69.4 %; Nucleated Red Blood Cells % 0 %; Platelet Count 224 10^3/cmm (157-399); Red Blood Count 5.88 10^6/uL (3.85-5.65); Red Cell Distribution Width 12.6 % (12.1-15.1); White Blood Count 7.42 10^3/uL (3.29-11.43)
--- NOTE | 2024-01-11 09:20 | ED_ITS ---
HPI - URI/Sore Throat 2 General: Chief Complaint: Upper Respiratory Infection Stated Complaint: [facility] sent over, throat irritation Time Seen by Provider: 01/11/24 08:31 History of Present Illness: 38-year-old man who presents to the [facility] room at the direction of the DC for a sore throat. He has been on Keflex for a few days now. He had negative strep test. Negative flu and COVID. He says now he feels like when he swallows there is a lump below in his throat. On exam his oropharynx is mildly erythematous but has no exudate. Review of Systems 2 Narrative: Constitutional symptoms: Negative except as documented in HPI. Skin symptoms: Negative except as documented in HPI. Eye symptoms: Negative except as documented in HPI. ENMT symptoms: Negative except as documented in HPI. Respiratory symptoms: Negative except as documented in HPI. Cardiovascular symptoms: Negative except as documented in HPI. Gastrointestinal symptoms: Negative except as documented in HPI. Genitourinary symptoms: Negative except as documented in HPI. Musculoskeletal symptoms: Negative except as documented in HPI. Neurologic symptoms: Negative except as documented in HPI. Psychiatric symptoms: Negative except as documented in HPI. Endocrine symptoms: Negative except as documented in HPI. PFSH ED 2 PFSH: Medical History Blood in stool Social History Smoking and tobacco/nicotine status: never used tobacco/nicotine Physical Exam 2 Narrative: EXAM NARRATIVE: General: Alert, no acute distress. Skin: Warm, dry. Head: Normocephalic, atraumatic. Neck: Supple, trachea midline. Eye: Extraocular movements are intact. Ears, nose, mouth and throat: mucosa moist. Mild pharyngeal erythema. No exudate. Cardiovascular: Regular, Normal peripheral perfusion. Respiratory: Lungs are clear to auscultation, respirations are non-labored, breath sounds are equal, Symmetrical chest wall expansion. Gastrointestinal: Soft, Nontender, Non distended Musculoskeletal: Normal ROM, no deformity. Neurological: Alert and oriented, No focal neurological deficit observed. Psychiatric: Cooperative, appropriate mood & affect. Course 2 Vital Signs: Vital signs: Vital Signs Temperature 98.0 F 01/11/24 08:29 Pulse Rate 89 07/22/24 08:29 Respiratory Rate 18 01/11/24 08:29 Blood Pressure 135/103 01/11/24 08:29 Pulse Oximetry 95 01/11/24 08:29 Oxygen Delivery Me thod Room Air 01/11/24 08:29 MDM - URI/Sore Throat Medical Decision Making Medical decision making: Differential diagnosis including but not limited to and based on the above HPI, review of systems and physical exam: Throat pain. Concern for mass so CT was ordered. Basic lab work to look for leukocytosis. Respiratory panel and a Monospot test. Orders placed to evaluate differential diagnosis based on the above differential, HPI and physical exam Lab Review: Laboratory results were reviewed and interpreted by myself the emergency room physician. Lab work is unremarkable. No leukocytosis. No renal failure. Monospot is negative. Respiratory panel is negative CT of the neck soft tissue: No acute process. No mass. No adenopathy. This was reviewed and interpreted by myself the emergency room physician. I also reviewed the radiology report. I reviewed the patient's medical record. Reexamination: Patient remained stable. No increased work of breathing. No altered mental status. No focal motor deficits. Assessment and plan: Pharyngitis -I will change his antibiotics to Omnicef and add dexamethasone. - Discharged home - Discussed findings and plan with patient. Answered any questions. - All laboratory values were reviewed and interpreted personally by myself, the ER physician - All imaging was reviewed and interpreted personally by myself, the ER physician. - Evaluation and treatment of this problem were appropriate in the emergency setting Lab Data 01/11/24 09:04 01/11/24 09:[address] 01/11/24 09:45 IMPRESSION: 1. No neck mass or abscess identified. 2. No peritonsillar abscess. 3. No cervical chain lymphadenopathy. 4. Minimal secretions in the LEFT piriform sinus. Laboratory Results WBC 7.42 10^3/uL (3.29-11.43) 01/11/24 09:04 RBC 5.88 10^6/uL (3.85-5.65) H 01/11/24 09:04 Hgb 17.60 g/dL (11.27-16.99) H 01/11/24 09:04 Hct 52.6 % (37-53) 01/11/24 09:04 MCV 89.5 fl (82-101) 01/11/24 09:04 MCH 29.9 pg (27-33) 01/11/24 09:04 MCHC 33.5 g/dL (30-55) 01/11/24 09:04 RDW 12.6 % (12.1-15.1) 01/11/24 09:04 Plt Count 224 10^3/cmm (157-399) 01/11/24 09:04 MPV 9.1 fL (7.4-10.4) 01/11/24 09:04 Neut % (Auto) 69.4 % 01/11/24 09:04 Lymph % (Auto) 21.8 % 01/11/24 09:04 [place] % (Auto) 7.7 % 01/11/24 09:04 Eos % (Auto) 0.7 % 01/11/24 09:04 Baso % (Auto) 0.3 % 01/11/24 09:04 Neut # (Auto) 5.15 10^3/uL (1.8-7.7) 01/11/24 09:04 Lymph # (Auto) 1.6 10^3/uL (0.8-4.8) 01/11/24 09:04 [place] # (Auto) 0.6 10^3/uL (0.2-0.9) 01/11/24 09:04 Eos # (Auto) 0.1 10^3/uL (0.0-0.8) 01/11/24 09:04 Baso # (Auto) 0.0 10^3/uL (0.0-0.1) 01/11/24 09:04 Nucleated RBC % (auto) 0 % 01/11/24 09:04 Nucleated RBCs # 0.0 /100WBC 01/11/24 09:04 Sodium 141 mmol/L (136-145) 01/11/24 09:04 Potassium 4.6 mmol/L (3.5-5.1) 01/11/24 09:04 Chloride 103 mmol/L (98-107) 01/11/24 09:04 Carbon Dioxide 27 mmol/L (22-29) 01/11/24 09:04 Anion Gap 15.6 (5-19) 01/11/24 09:04 BUN 13 mg/dL (6-20) 01/11/24 09:04 Creatinine 1.0 mg/dL (0.7-1.2) 01/11/24 09:04 GFR Calculation 83.2 mL/min (90-130) L 01/11/24 09:04 Glucose 93 mg/dL (65-115) 01/11/24 09:04 Calculated Osmolality 292 mOsm/kg (285-295) 01/11/24 09:04 Calcium 9.0 mg/dL (8.5-10.5) 01/11/24 09:04 C-Reactive Protein 4.4 mg/L (0.0-4.9) 01/11/24 09:04 Adenovirus (PCR) Not detected (NOT DETECT) 01/11/24 08:51 C. pneumoniae DNA (PCR) Not detected (NOT DETECT) 01/11/24 08:51 Coronavirus 229E (PCR) Not detected (NOT DETECT) 01/11/24 08:51 Monoscreen Negative (Negative) 01/11/24 09:04 Human Metapneumovir PCR Not detected (NOT DETECT) 01/11/24 08:51 Influenza A (H1) PCR Not detected (NOT DETECT) 01/11/24 08:51 Influ A (H1/09) PCR Not detected (NOT DETECT) 01/11/24 08:51 Influenza A (H3) PCR Not detected (NOT DETECT) 01/11/24 08:51 Influenza Type A (PCR) Not detected (NOT DETECT) 01/11/24 08:51 Influenza Type B (PCR) Not detected (NOT DETECT) 01/11/24 08:51 M. pneumoniae (PCR) Not detected (NOT DETECT) 01/11/24 08:51 Parainfluenza 1 (PCR) Not detected (NOT DETECT) 01/11/24 08:51 Parainfluenza 2 (PCR) Not detected (NOT DETECT) 01/11/24 08:51 Parainfluenza 3 (PCR) Not detected (NOT DETECT) 01/11/24 08:51 Parainfluenza 4 (PCR) Not detected (NOT DETECT) 01/11/24 08:51 RSV Type A (PCR) Not detected (NOT DETECT) 01/11/24 08:51 RSV Type B (PCR) Not detected (NOT DETECT) 01/11/24 08:51 Entero/Rhino (PCR) Not detected (NOT DETECT) 01/11/24 08:51 SARS-CoV-2 (PCR) Not detected (NOT DETECT) 01/11/24 08:51 All radiology interpretation(s) finalized by discharge Discharge Plan Discharge Patient Disposition: Home Clinical Impression: Pharyngitis Qualifiers: Pharyngitis/tonsillitis etiology: unspecified etiology Qualified Code(s): J02.9 - Acute pharyngitis, unspecified Condition: Stable Prescriptions: New dexamethasone 6 mg tablet 6 mg PO DAILY 5 Days Qty: 5 0RF cefdinir 300 mg capsule 300 mg PO BID 7 Days Qty: 14 0RF No Action cholecalciferol (vitamin D3) 100 mcg (4,000 unit) tablet 100 mcg PO DAILY levothyroxine [Synthroid] 100 mcg tablet 100 mcg PO DAILY Qty: 90 0RF Qsymia 7.5-46 mg capsule, ER multiphase 24 hr 1 cap PO DAILY Qty: 30 0RF betamethasone valerate 0.1 % ointment 1 applic TOPICAL TID PRN (Reason: Skin Irritation) ciclopirox 8 % solution 1 applic TOPICAL DAILY cephalexin 500 mg capsule 500 mg PO TID clomiphene citrate 50 mg tablet See Rx Instructions .ROUTE .COMPLEX Rx Instructions: TAKE 25 MG TWO TIMES WEEKLY ON THURSDAY AND THURSDAY. Xanax 0.25 mg Tablet 0.25 mg PO PRN PRN (Reason: Anxiety) Fioricet 50-300-40 mg Capsule 1 cap PO Q6H PRN (Reason: Pain) fexofenadine 180 mg Tablet See Rx Instructions .ROUTE .COMPLEX Rx Instructions: TAKE 1 TABLET BY MOUTH DIRECTED, TITRATE BETWEEN TAKING 1 TABLET 2 TO 4 TIMES DAILY FOR ALLERGY SYMPTOMS. Discharge Orders: Discharge ED (Routine); Ordered 01/11/24 Ordered By: Yessy Jim Referrals: Lselie Stephenson FNP [Primary Care Provider] - 1-3 days (Please call for follow-up appointment) Discharge Diet: Advance as tolerated Discharge Activity: Increase activity as tolerated Patient Instructions: Pharyngitis (ED) Activity Restrictions/Additional Instructions: Thank you for choosing [facility] for your healthcare needs today. Please realize this is an emergency room and that we are providing you with a medical screening exam and this may not be complete and all inclusive of all the testing and or work up that you may need to determine your ailment or severity of your illness. You have been screened and evaluated and felt safe for discharge. Health conditions do change or evolve sometimes and as such it is important that you follow up with your Primary Doctor to be re checked, 3-5 days is a general good time frame for follow up. 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
[2024-01-11 09:26] LABS: Monoscreen Negative (Negative)
[2024-01-11 09:28] LABS: Anion Gap 15.6 (5-19); Blood Urea Nitrogen 13 mg/dL (6-20); C Reactive Protein 4.4 mg/L (0.0-4.9); Carbon Dioxide 27 mmol/L (22-29); Chloride 103 mmol/L (98-107); Creatinine Clr Calc Pharmacy 118.6537; Glomerular Filtration Rate 83.2 mL/min (90-130); Glucose 93 mg/dL (65-115); Osmolality Calculated 292 mOsm/kg (285-295); Potassium 4.6 mmol/L (3.5-5.1); Sodium 141 mmol/L (136-145)
--- NOTE | 2024-01-11 09:45 | CT_ITS ---
WS: [id number] CT NECK WITH CONTRAST HISTORY: throat pain, feeling of lump TECHNIQUE: Contiguous 2 mm axial images are performed through the neck with intravenous contrast. Sag ittal and coronal reformats are also submitted. All CT scans at [facility] use at least one o f these dose optimization techniques: automated exposure control; mA and/or kV adjustment per patient size (includes targeted exams where dose is matched to clinical indication); or iterative reconstruc tion. CONTRAST: CONTRAST: Omnipaque 350; 100 mL IV. DLP: 283.71 mGy.cm COMPARISON: None available. Nasopharynx, oropharynx, hypopharynx and larynx are unremarkable. No soft tissue masses or abnormal e nhancement. There is small amount of fluid and secretions in the LEFT piriform sinus. Torus tubarius and fossa of Rosenmuller and parapharyngeal fat are normal. No significant lymphadenopathy is identified. Small benign-appearing cervical chain lymph nodes. Thyroid gland and salivary glands are normally enhancing with no masses. No osseous abnormalities. Visualized portions of the skull base demonstrate no abnormalities. Orbits and globes are within norm al limits. No soft tissue masses. Visualized paranasal sinuses and mastoid air cells are normal. Lung apices are clear. CT/CT neck w con* [id number] IMPRESSION: 1. No neck mass or abscess identified. 2. No peritonsillar abscess. 3. No cervical chain lymphadenopathy. 4. Minimal secretions in the LEFT piriform sinus.
[2024-01-11] MEDS: iohexol 350 mg/mL 500 mL Btl (per mL) IV (10:18)
[2024-01-11 10:32] VITALS: BP 145/96; PULSE 89; RESP 16; O2SAT 94
[2024-01-11 10:40] LABS: Adenovirus Not Detected (NOT DETECT); Chlamydia Pneumoniae Not Detected (NOT DETECT); Coronavirus 229E,HKU1,NL63,OC4 Not Detected (NOT DETECT); Human Metapneumovirus Not Detected (NOT DETECT); Human Rhinovirus/Enterovirus Not Detected (NOT DETECT); Influenza A Not Detected (NOT DETECT); Influenza A H1 Not Detected (NOT DETECT); Influenza A H1-2009 Not Detected (NOT DETECT); Influenza A H3 Not Detected (NOT DETECT); Influenza B Not Detected (NOT DETECT); Mycoplasma Pneumoniae Not Detected (NOT DETECT); Parainfluenza Virus Type 1 Not Detected (NOT DETECT); Parainfluenza Virus Type 2 Not Detected (NOT DETECT); Parainfluenza Virus Type 3 Not Detected (NOT DETECT); Parainfluenza Virus Type 4 Not Detected (NOT DETECT); Respiratory Syncytial Virus A Not Detected (NOT DETECT); Respiratory Syncytial Virus B Not Detected (NOT DETECT); SARS-COV-2 Not Detected (NOT DETECT)
== END 2024-01-11 11:49 | disposition home or self-care (01) ==
PROVIDERS: Emergency Provider Emergency Medicine; PCP Nurse Practitioner
DX: J02.9 Acute pharyngitis, unspecified (principal)
CPT/HCPCS: 36415; 70491; 80048; 85025; 86140; 86308; 87486; 87581; 87633; 99284; Q9967

== ENCOUNTER → 2024-01-28 08:38 | Outpatient (BNVA) | payer OTHER, SELFPAY | PROVIDERS: PCP Nurse Practitioner; Visit Provider Internal Medicine | DX: E03.9 Hypothyroidism, unspecified (principal); R79.89 Other specified abnormal findings of blood chemistry; R71.8 Other abnormality of red blood cells; E66.9 Obesity, unspecified; E55.9 Vitamin D deficiency, unspecified; K76.0 Fatty (change of) liver, not elsewhere classified; Z79.890 Hormone replacement therapy; Z68.37 Body mass index [BMI] 37.0-37.9, adult | CPT/HCPCS: 99214 ==

== ENCOUNTER → 2024-03-25 09:30 | Outpatient (BNVA) | payer OTHER, SELFPAY | PROVIDERS: PCP Nurse Practitioner; Visit Provider Internal Medicine | DX: E03.9 Hypothyroidism, unspecified (principal); R79.89 Other specified abnormal findings of blood chemistry; E66.9 Obesity, unspecified; E55.9 Vitamin D deficiency, unspecified; R71.8 Other abnormality of red blood cells; Z68.34 Body mass index [BMI] 34.0-34.9, adult; Z79.890 Hormone replacement therapy | CPT/HCPCS: 99214 ==

== ENCOUNTER → 2024-05-18 08:00 | Outpatient (BNVA) | payer OTHER, SELFPAY | PROVIDERS: PCP Nurse Practitioner; Visit Provider Internal Medicine | DX: E03.9 Hypothyroidism, unspecified (principal); R79.89 Other specified abnormal findings of blood chemistry; E66.9 Obesity, unspecified; E55.9 Vitamin D deficiency, unspecified; R71.8 Other abnormality of red blood cells; R03.0 Elevated blood-pressure reading, without diagnosis of hypertension; Z74.01 Bed confinement status; Z79.890 Hormone replacement therapy | CPT/HCPCS: 99214 ==

== ENCOUNTER → 2024-06-30 09:00 | Outpatient (BNVA) | payer OTHER, SELFPAY | PROVIDERS: PCP Nurse Practitioner; Visit Provider Internal Medicine | DX: E03.9 Hypothyroidism, unspecified (principal); E66.9 Obesity, unspecified; E55.9 Vitamin D deficiency, unspecified | CPT/HCPCS: 99214 ==

== ENCOUNTER → 2024-09-15 08:31 | Outpatient (BNVA) | payer OTHER, SELFPAY | PROVIDERS: PCP Nurse Practitioner; Visit Provider Internal Medicine | DX: E03.9 Hypothyroidism, unspecified (principal); E66.9 Obesity, unspecified; E55.9 Vitamin D deficiency, unspecified | CPT/HCPCS: 99214 ==

== ENCOUNTER → 2024-10-18 10:34 | Outpatient (BNVA) | payer OTHER, SELFPAY | PROVIDERS: PCP Nurse Practitioner; Visit Provider Internal Medicine | DX: E03.9 Hypothyroidism, unspecified (principal); E66.9 Obesity, unspecified; E55.9 Vitamin D deficiency, unspecified | CPT/HCPCS: 99214 ==

== ENCOUNTER 2024-11-08 09:39 | Emergency (ER) | payer OTHER, BC, SELFPAY ==
[2024-11-08 09:43] VITALS: BP 132/91; PULSE 96; TEMP 36.6; O2SAT 99; BMI 33.7
--- NOTE | 2024-11-08 11:04 | ECG_ITS ---
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 Measurements Intervals [place] Rate: 84 P: 35 WV: 160 QRS: 103 QRSD: 106 T: 20 QT: 372 QTc: 440 Interpretive Statements SINUS RHYTHM RIGHT AXIS DEVIATION [QRS AXIS > 100] Compared to ECG 07/24/2023 10:12:09 Right-axis deviation now present Sinus arrhythmia no longer present Electronically Signed On 11-08-2024 17:43:57 CDT by Candace Sharma M.D. [email or web address]
--- NOTE | 2024-11-08 11:12 | CT_ITS ---
WS: [id number] CT HEAD TECHNIQUE: Noncontrast CT of the head obtained from the skullbase to the vertex. CLINICAL INFORMATION: paresthesias COMPARISON: 2019 DLP: 1002.[address] scans at [facility] use at least one of these dose optimization techniques: automated exposure control; mA and/or kV adjustment per patient size (includes targeted exams where dose is matched to clinical indication); or iterative reconstruction. FINDINGS: No evidence of intracranial hemorrhage or mass effect. Ventricular system and basal cisterns are patent. No extra-axial fluid collections. No evidence of mass or mass effect. Normal dukes-white differentiation. Paranasal sinuses and mastoid air cells are well aerated. .Normal visualized soft tissues. CT/CT head wo con* [id number] IMPRESSION: 1. No evidence of intracranial hemorrhage or mass effect. 2. No acute intracranial findings.
--- NOTE | 2024-11-08 11:13 | W.ED.NEUROSD ---
HPI - Neuro Symptoms/Deficit General: Chief Complaint: Neuro Symptoms/Deficit Stated Complaint: tingling and numbness in face, both arms Time Seen by Provider: 11/08/24 11:01 Source: patient Mode of arrival: ambulatory Limitations: no limitations History of Present Illness: 38-year-old male who states that 2 hours ago he started getting some numbness in his left hand he states he started having numbness on his face his foot his right hand states that it is bilateral. He has no other symptoms denies any weakness no slurred speech denies any headache. Associated symptoms: Deny chest pain, headache(s), nausea or vomiting Related Data Home Medications ?Medication ?Instructions ?Recorded ?Confirmed fexofenadine 180 mg tablet See Rx Instructions .Route .COMPLEX 07/24/23 10/18/24 cholecalciferol (vitamin D3) 100 100 mcg PO DAILY 12/28/23 10/18/24 mcg (4,000 unit) tablet alprazolam 0.25 mg tablet (Xanax) 0.25 mg PO PRN PRN Anxiety 01/11/24 10/18/24 betamethasone valerate 0.1 % 1 applic topical TID PRN Skin 01/11/24 10/18/24 topical ointment Irritation ciclopirox 8 % topical solution 1 applic topical DAILY 01/11/24 10/18/24 Previous Rx's ?Medication ?Instructions ?Recorded levothyroxine 100 mcg tablet 100 mcg PO DAILY #90 tabs 07/23/23 (Synthroid) phentermine 15 mg-topiramate ER 92 1 cap PO DAILY #30 caps 10/18/24 mg capsule,[id number] multphas (Qsymia) Allergies Allergy/AdvReac Type Severity Reaction Status Date / Time semaglutide (From Wegovy) Allergy Severe ALGY-Anaphy Verified 11/08/24 09:49 laxis amitriptyline Allergy ALGY-Anaphy Verified 11/08/24 09:49 laxis clindamycin Allergy ALGY-Rash Verified 11/08/24 09:49 duloxetine Allergy ALGY-Rash Verified 11/08/24 09:49 fluoxetine Allergy ALGY-Rash Verified 11/08/24 09:49 gabapentin (From Neurontin) Allergy ALGY-Rash Verified 11/08/24 09:49 nortriptyline Allergy ALGY-Anaphy Verified 11/08/24 09:49 laxis pregabalin (From Lyrica) Allergy ALGY-Rash Verified 11/08/24 09:49 sulfamethoxazole (From Allergy ALGY-Rash Verified 11/08/24 09:49 Bactrim) sumatriptan (From Imitrex) Allergy Unknown Verified 11/08/24 09:49 trimethoprim (From Bactrim) Allergy ALGY-Rash Verified 11/08/24 09:49 typhoid vaccine Allergy ALGY-Anaphy Verified 11/08/24 09:49 laxis Review of Systems Const: Denies: fever(s), chills, body aches or change in appetite ENMT: Denies: throat pain or dental pain Card: Denies: chest pain Resp: Denies: dyspnea GI: Denies: abdominal pain, nausea, vomiting or diarrhea Musc: Denies: neck pain or back pain Skin/Breast: Denies: rash Neuro: Reports: numbness in extremities; Denies: headache(s) PFSH ED PFSH: Medical History Blood in stool Social History Smoking and tobacco/nicotine status: never used tobacco/nicotine Physical Exam Const: COMMON NORMALS: no acute distress, patient oriented x3 and healthy appearing HENMT: COMMON NORMALS: normocephalic and atraumatic HEAD & SCALP: normocephalic and atraumatic Eye: COMMON NORMALS: conjunctivae normal CONJUNCTIVA: Yes conjunctivae normal Neck/C-Spine: COMMON NORMALS: full ROM and supple Chest: COMMONS NORMALS: normal inspection of the chest and normal palpation of entire chest wall Resp: COMMON NORMALS: normal respiratory effort, No retractions, No use of accessory muscles and clear to auscultation bilaterally AUSCULTATION: clear to auscultation bilaterally Cardio: COMMON NORMALS: regular rate, regular rhythm and No murmurs present (Cardio) RATE: regular rate RHYTHM: regular rhythm Extremity: COMMON NORMALS: normal to inspection and full ROM Neuro: COMMON NORMALS: patient oriented x3, moves all extremities and no focal motor deficits CRANIAL NERVES: Yes CN normal except as noted SPEECH: speech normal GAIT: Yes Normal gait present MOTOR EXAM: 5/5 motor strength present throughout Psych: COMMON NORMALS: mental status grossly normal, Normal thought process present and cooperative THOUGHT PROCESS: Normal thought process present Skin: COMMON NORMALS: no rashes or lesions noted and no wounds GENERAL SKIN EXAM: no rashes or lesions noted Course Vital Signs: Vital signs: Vital Signs Temperature 97.8 F 11/08/24 09:43 Pulse Rate 83 11/08/24 11:44 Blood Pressure 132/91 11/08/24 09:43 Pulse Oximetry 96 11/08/24 11:44 Oxygen Delivery Me thod Room Air 11/08/24 11:44 MDM - Neuro Symptoms/Deficit Medical Decision Making Patient presents here with paresthesias his blood work imaging here is all normal he has no signs of a stroke he stable for discharge follow-up PCP return if worsening. Medical Records I reviewed the patient's medical records. Lab Data I reviewed the patient's lab results. 11/08/24 11:30 11/08/24 11:[address] 11/08/24 11:12 IMPRESSION: 1. No evidence of intracranial hemorrhage or mass effect. 2. No acute intracranial findings. Laboratory Results WBC 7.28 10^3/uL (3.29-11.43) 11/08/24 11:30 RBC 5.52 10^6/uL (3.85-5.65) 11/08/24 11:30 Hgb 16.70 g/dL (11.27-16.99) 11/08/24 11:30 Hct 49.4 % (37-53) 11/08/24 11:30 MCV 89.5 fl (82-101) 11/08/24 11:30 MCH 30.3 pg (27-33) 11/08/24 11:30 MCHC 33.8 g/dL (30-55) 11/08/24 11:30 RDW 12.8 % (12.1-15.1) 11/08/24 11:30 Plt Count 210 10^3/cmm (157-399) 11/08/24 11:30 MPV 9.1 fL (7.4-10.4) 11/08/24 11:30 Neut % (Auto) 62.8 % 11/08/24 11:30 Lymph % (Auto) 27.1 % 11/08/24 11:30 [place] % (Auto) 8.4 % 11/08/24 11:30 Eos % (Auto) 1.0 % 11/08/24 11:30 Baso % (Auto) 0.4 % 11/08/24 11:30 Neut # (Auto) 4.58 10^3/uL (1.8-7.7) 11/08/24 11:30 Lymph # (Auto) 2.0 10^3/uL (0.8-4.8) 11/08/24 11:30 [place] # (Auto) 0.6 10^3/uL (0.2-0.9) 11/08/24 11:30 Eos # (Auto) 0.1 10^3/uL (0.0-0.8) 11/08/24 11:30 Baso # (Auto) 0.0 10^3/uL (0.0-0.1) 11/08/24 11:30 Nucleated RBC % (auto) 0 % 11/08/24 11:30 Nucleated RBCs # 0.0 /100WBC 11/08/24 11:30 Sodium 142 mmol/L (136-145) 11/08/24 11:30 Potassium 3.8 mmol/L (3.5-5.1) 11/08/24 11:30 Chloride 108 mmol/L (98-107) H 11/08/24 11:30 Carbon Dioxide 25 mmol/L (22-29) 11/08/24 11:30 Anion Gap 12.8 (5-19) 11/08/24 11:30 BUN 16 mg/dL (6-20) 11/08/24 11:30 Creatinine 1.1 mg/dL (0.7-1.2) 11/08/24 11:30 GFR Calculation 74.5 mL/min (90-130) L 11/08/24 11:30 Glucose 82 mg/dL (65-115) 11/08/24 11:30 Calculated Osmolality 294 mOsm/kg (285-295) 11/08/24 11:30 Calcium 9.0 mg/dL (8.5-10.5) 11/08/24 11:30 Total Bilirubin 0.4 mg/dL (0.15-1.2) 11/08/24 11:30 AST 21 U/L (0-40) 11/08/24 11:30 ALT 34 U/L (0-41) 11/08/24 11:30 Alkaline Phosphatase 71 U/L (40-130) 11/08/24 11:30 Troponin T Baseline < 6 ng/L (0-15) 11/08/24 11:30 Total Protein 6.8 g/dL (6.6-8.7) 11/08/24 11:30 Albumin 4.2 g/dL (3.5-5.2) 11/08/24 11:30 Globulin 2.6 g/dL (1.3-4.6) 11/08/24 11:30 Lipase 30 U/L (13-60) 11/08/24 11:30 All radiology interpretation(s) finalized by discharge EKG Data EKG 1: I personally reviewed and interpreted this EKG as follows: EKG interpretation date: 11/08/24 EKG interpretation time: 11:04 Interpretation: nsr hr [address] elevation qrs 106 qtc 413 Discharge Plan Discharge Patient Disposition: Home Clinical Impression: Paresthesia Condition: Stable Prescriptions: No Action cholecalciferol (vitamin D3) 100 mcg (4,000 unit) tablet 100 mcg PO DAILY Qsymia 15-92 mg capsule, ER multiphase 24 hr 1 cap PO DAILY Qty: 30 0RF levothyroxine [Synthroid] 100 mcg tablet 100 mcg PO DAILY Qty: 90 0RF betamethasone valerate 0.1 % ointment 1 applic TOPICAL TID PRN (Reason: Skin Irritation) ciclopirox 8 % solution 1 applic TOPICAL DAILY Xanax 0.25 mg Tablet 0.25 mg PO PRN PRN (Reason: Anxiety) fexofenadine 180 mg Tablet See Rx Instructions .ROUTE .COMPLEX Rx Instructions: TAKE 1 TABLET BY MOUTH DIRECTED, TITRATE BETWEEN TAKING 1 TABLET 2 TO 4 TIMES DAILY FOR ALLERGY SYMPTOMS. Discharge Orders: Discharge ED (Routine); Ordered 11/08/24 Ordered By: Aileen Johnson Referrals: Leslie Stephenson FNP [Primary Care Provider, Nurse Practitioner] - 4-7 days Discharge Diet: Advance as tolerated Discharge Activity: Resume usual activity Patient Instructions: Paresthesia (ED) Print Language: Romansh Coding Level of Care Code ED Manufacturing Engineering Professor for Chg Jez
[2024-11-08 11:38] LABS: Basophils % 0.4 %; Eosinophils # 0.1 10^3/uL (0.0-0.8); Hematocrit 49.4 % (37-53); Lymphocytes % 27.1 %; Mean Corpuscular HGB Conc 33.8 g/dL (30-55); Mean Corpuscular Hemoglobin 30.3 pg (27-33); Mean Corpuscular Volume 89.5 fl (82-101); Mean Platelet Volume 9.1 fL (7.4-10.4); Monocytes # 0.6 10^3/uL (0.2-0.9); Monocytes % 8.4 %; Neutrophils # 4.58 10^3/uL (1.8-7.7); Neutrophils % 62.8 %; Nucleated Red Blood Cells % 0 %; Platelet Count 210 10^3/cmm (157-399); Red Blood Count 5.52 10^6/uL (3.85-5.65); Red Cell Distribution Width 12.8 % (12.1-15.1); White Blood Count 7.28 10^3/uL (3.29-11.43)
[2024-11-08 11:44] VITALS: PULSE 83; O2SAT 96
[2024-11-08 11:56] LABS: Alanine Aminotransferase 34 U/L (0-41); Albumin Level 4.2 g/dL (3.5-5.2); Alkaline Phosphatase 71 U/L (40-130); Anion Gap 12.8 (5-19); Aspartate Amino Transferase 21 U/L (0-40); Blood Urea Nitrogen 16 mg/dL (6-20); Carbon Dioxide 25 mmol/L (22-29); Chloride 108 mmol/L (98-107); Creatinine Clr Calc Pharmacy 103.7025; Globulin 2.6 g/dL (1.3-4.6); Glomerular Filtration Rate 74.5 mL/min (90-130); Glucose 82 mg/dL (65-115); Lipase 30 U/L (13-60); Osmolality Calculated 294 mOsm/kg (285-295); Potassium 3.8 mmol/L (3.5-5.1); Sodium 142 mmol/L (136-145); Total Bilirubin 0.4 mg/dL (0.15-1.2); Total Protein 6.8 g/dL (6.6-8.7)
[2024-11-08 12:27] LABS: Troponin(5th) Baseline < 6 ng/L (0-15)
[2024-11-08 12:49] VITALS: BP 128/84; PULSE 82; O2SAT 98
== END 2024-11-08 12:43 | disposition home or self-care (01) ==
PROVIDERS: Emergency Provider Emergency Medicine; PCP Nurse Practitioner
DX: R20.2 Paresthesia of skin (principal)
CPT/HCPCS: 36415; 70450; 80053; 83690; 84484; 85025; 93005; 99284

== ENCOUNTER → 2024-11-18 08:17 | Outpatient (BNVA) | payer OTHER, SELFPAY | PROVIDERS: PCP Nurse Practitioner; Visit Provider Internal Medicine | DX: E03.9 Hypothyroidism, unspecified (principal); E66.9 Obesity, unspecified; E55.9 Vitamin D deficiency, unspecified | CPT/HCPCS: 99214 ==

== ENCOUNTER → 2024-12-16 08:07 | Outpatient (BNVA) | payer OTHER, SELFPAY | PROVIDERS: PCP Nurse Practitioner; Visit Provider Internal Medicine | DX: E55.9 Vitamin D deficiency, unspecified (principal); E66.9 Obesity, unspecified; E03.9 Hypothyroidism, unspecified | CPT/HCPCS: 99214 ==

== ENCOUNTER 2024-12-28 07:42 | Outpatient (CLI) | payer OTHER, SELFPAY ==
[2024-12-28 09:18] LABS: Free T4 Free Thyroxine 1.41 ng/dL (0.82-1.77); Thyroid Stimulating Hormone 1.93 uIU/mL (0.27-4.20)
[2024-12-28 09:33] LABS: Alanine Aminotransferase 36 U/L (0-41); Albumin Level 4.6 g/dL (3.5-5.2); Alkaline Phosphatase 75 U/L (40-130); Anion Gap 17.3 (5-19); Aspartate Amino Transferase 27 U/L (0-40); Blood Urea Nitrogen 18 mg/dL (6-20); Calcium 9.8 mg/dL (8.5-10.5); Carbon Dioxide 24 mmol/L (22-29); Chloride 104 mmol/L (98-107); Globulin 2.8 g/dL (1.3-4.6); Glucose 89 mg/dL (65-115); Osmolality Calculated 293 mOsm/kg (285-295); Potassium 4.3 mmol/L (3.5-5.1); Sodium 141 mmol/L (136-145); Total Protein 7.4 g/dL (6.6-8.7)
[2024-12-30 08:21] LABS: Thyroid Peroxidase Antobodies <1 IU/mL (<9)
== END 2024-12-28 07:43 | disposition home or self-care (01) ==
PROVIDERS: PCP Nurse Practitioner; Visit Provider Internal Medicine
DX: E55.9 Vitamin D deficiency, unspecified (principal); E66.9 Obesity, unspecified; E03.9 Hypothyroidism, unspecified; L68.0 Hirsutism
CPT/HCPCS: 36415; 80053; 84403; 84439; 84443; 86376; 86800

== ENCOUNTER → 2025-01-13 07:43 | Outpatient (BNVA) | payer OTHER, SELFPAY | PROVIDERS: PCP Nurse Practitioner; Visit Provider Internal Medicine | DX: E03.9 Hypothyroidism, unspecified (principal); E66.9 Obesity, unspecified; E55.9 Vitamin D deficiency, unspecified | CPT/HCPCS: 99214 ==

== ENCOUNTER 2025-01-17 18:08 | Emergency (ER) | payer OTHER, SELFPAY ==
--- OUTSIDE RECORDS SUMMARY | 2025-01-16 12:54 | XMS_ITS | Encounter Summary ---
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 This section includes the names of all active insurance providers for the patient. Insurance Provider Type of Coverage Plan Name Start of Policy Coverage End of Policy Coverage Group Number Member ID Insurance Provider's Telephone Number Policy Schmidt's Name Patient's Relationship to Policy Schmidt [place] PREFERRED PROVIDER ORGANIZAT ION (PPO) FEP BASIC PLUS 1 Dec 13, 2017 113 [id number] [phone] Holly HARE PATIENT [place] PREFERRED PROVIDER ORGANIZAT ION (PPO) FEP BASIC PLUS 1 Dec 13, 2017 113 [id number] [phone] Holly HARE PATIENT [place] PREFERRED PROVIDER ORGANIZAT ION (PPO) FEP BASIC PLUS 1 Dec 13, 2017 113 [id number] [phone] Holly HARE PATIENT [place] BS [place] F[place] PREFERRED PROVIDER ORGANIZAT ION (PPO) FEP Dec 13, 2017 [id number] Holly HARE PATIENT [place] BS [place] (FEP) PREFERRED PROVIDER ORGANIZAT ION (PPO) FEP Dec 13, 2017 113 [id number] Holly HARE PATIENT BC BS [place] FEP PREFERRED PROVIDER ORGANIZAT ION (PPO) FEP-B ASIC- PPO Dec 13, 2017 113 [id number] Holly HARE PATIENT BC BS [place] FEP PREFERRED PROVIDER ORGANIZAT ION (PPO) 113 FEP Dec 13, 2017 113 [id number] [phone] Holly HARE PATIENT [place] PREFERRED PROVIDER ORGANIZAT ION (PPO) FEP BASIC PLUS 1 Dec 13, 2017 113 [id number] [phone] Holly HARE PATIENT [employer] ([id number]) PRESCRIPT ION FEP Dec 13, 2017 [id number] Holly HARE PATIENT [employer] ([id number]) PRESCRIPT ION FEP Dec 13, 2017 [id number] Holly HARE PATIENT [employer] ([id number]) PRESCRIPT ION FEPRX Dec 13, 2017 [id number] Holly HARE PATIENT [employer] ([id number]) FEP PRESCRIPT ION FEPRX Dec 13, 2017 [id number] Holly HARE PATIENT [employer] ([id number]) FEP PRESCRIPT ION FEP Dec 13, 2017 [id number] Holly HARE PATIENT [place] FEP ([id number]) PRESCRIPT ION FEPRX Dec 13, 2017 [id number] [phone] Holly HARE PATIENT Selected Encounter This section includes the information on record at [place] for the Encounter. Date/Time Encounter Type Encounter Description Reason Provider Source Jan 16, 2025 05:54 PM Outpatient Encounter PRIMARY CARE/MEDICINE CARLIE WEAVER [place] Encounter Template Text not used by [place] Plan of Treatment: Future Appointments (+ 6 months) and Future Tests (+/- 45 days) The Plan of Treatment section includes future care activities for the patient from all [facility] treatment[facility]ilities. This section includes future appointments and future orders which are active, pending or scheduled. Future Appointments This section includes appointments that were scheduled to occur 6 months from the date of the Encounter, up to a maximum of 20 appointments. The data comes from all [place] treatment facilities. Appointment Date/Time Appointment Type Appointme nt Facility Name Jan 30, 2025 08:00 AM AMBULATORY - MEDICINE [facility] Feb 13, 2025 03:00 PM AMBULATORY - MEDICINE [facility] Mar 01, 2025 03:00 PM AMBULATORY - MEDICINE [facility] Mar 08, 2025 03:00 PM AMBULATORY - MEDICINE [facility] Mar 13, 2025 03:00 PM AMBULATORY - MEDICINE [facility] Mar 20, 2025 03:00 PM AMBULATORY - MEDICINE [facility] May 29, 2025 08:50 AM [facility] [place] [facility] Encounter Notes: All associated encounter notes This section contains the clinical notes associated to the Encounter. Date/Time Encounter Note(s) Provider Source Jan 16, 2025 05:54 PM PRIMARY CARE SECUR E MESSAGING: LOCAL TITLE: PRIMARY CARE SECURE MESSAGING STANDARD TITLE: PRIMARY CARE SECURE MESSAGING DATE OF NOTE: JAN 16, 2025@17:54 ENTRY DATE: JAN 16, 2025@16:54:13 AUTHOR: CARLIE WEAVER EXP COSIGNER: URGENCY: STATUS: COMPLETED PRIMARY CARE SECURE MESSAGING Has ADDENDA ------Original Message --- Sent: 01/14/2025 02:08 PM ET From: PETE HARE To: [place], [facility] [place] Subject: Test:Requesting blood work to be done Good afternoon Team - I'm requesting the following blood work to be completed as part of ongoing issues with fatigue and exhaustion but still not knowing why. 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 I'd like to test my detox capacity, methylation efficiency, and mitochondrial performance to better guide targeted treatment exhaustion, issues with kidney levels being off, elevated liver enzymes, metabolic issues, fatigue issues (which could be caused from medication changes, stress, anxiety, etc.). I'm also on terbinafine and Oxcarbazepine which can impact my kidneys and livers during treatment. Therefore, could the following labs be completed to assist with following up on the concerns that I have? - Nutrigenomics Panel or maybe Phaser testing - Mitochondrial Function Profile - ATP production markers, oxidative stress load, and membrane potential balance. - Neurotransmitter Panel - dopamine, serotonin, CANELO, glutamate, epinephrine. -Intestinal Permeability - -Full Hormone [place] - pregnenolone, aldosterone, ACTH, and even sex hormone metabolites -Advanced Inflammation Cytokine Panel - L-1?, IL-8, IL-10, and interferon gamma Thank you in advance. Pete ------Original Message --- Sent: 01/16/2025 05:54 PM ET From: CARLIE WEAVER To: PETE HARE Subject: Test:Requesting blood work to be done Marily Lawson is our of the office this week. I will alert the covering Provider of your message and message you back with further recommendations. Respectfully, RADHA No /stefano/ Carlie Weaver RN [facility], [facility] Signed: 01/16/2025 16:54 Receipt Acknowledged By: 01/17/2025 15:46 /stefano/ Kaylen Villalobos APRN, FNP-C, [facility] MARILY MYERS 01/17/2025 ADDENDUM STATUS: COMPLETED specialty labs should be discussed with endocrinology or Dr. Phan once she returns as this providers is not agreeable to order requested labs. /stefano/ Kaylen Villalobos APRN, [place], [facility] Signed: 01/17/2025 15:47 [facility]ER [facility] [place] MARTHA
--- OUTSIDE RECORDS SUMMARY | 2025-01-17 04:42 | XMS_ITS | Encounter Summary ---
Author Name [facility] [place] [facility] [place] [facility] Address [address] [place] [address] Care Team Providers Care Asbestos Abatement Technician Name Role Phone MARILY MYERS Primary Care [...] BASIC PLUS 1 Dec 13, 2017 [id number] [phone] PAYAMHolly PATIENT ANTHE[place] F[place] PREFERRED PROVIDER ORGANIZAT ION (PPO) FEP BASIC PLUS 1 Dec 13, 2017 113 [id number] [phone] PAYAMHolly PATIENT [place] PREFERRED PROVIDER ORGANIZAT ION (PPO) FEP BASIC PLUS 1 Dec 13, 2017 113 [id number] [phone] PAYAMHolly ODOM PATIENT BC BS [place] FEP PREFERRED PROVIDER ORGANIZAT ION (PPO) FEP Dec 13, 2017 113 [id number] PAYAMHolly PATIENT BC BS [place] (FEP) PREFERRED PROVIDER ORGANIZAT ION (PPO) FEP Dec 13, 2017 113 [id number] [phone] Holly HARE PATIENT BC BS [place] FEP PREFERRED PROVIDER ORGANIZAT ION (PPO) FEP-B ASIC- PPO Dec 13, 2017 113 [id number] Holly HARE PATIENT BC BS [place] FEP PREFERRED PROVIDER ORGANIZAT ION (PPO) 113 FEP Dec 13, 2017 113 [id number] [phone] Holly HARE PATIENT BC[place] F[place] PREFERRED PROVIDER ORGANIZAT ION (PPO) FEP BASIC PLUS 1 Dec 13, 2017 113 [id number] [phone] Holly HARE PATIENT [employer] ([id number]) PRESCRIPT ION FEP Dec 13, 2017 [id number] [phone] Holly HARE PATIENT [employer] ([id number]) PRESCRIPT ION FEP Dec 13, 2017 [id number] Holly HARE PATIENT [employer] ([id number]) PRESCRIPT ION FEPRX Dec 13, 2017 [id number] Holly HARE PATIENT [employer] ([id number]) FEP PRESCRIPT ION FEP Dec 13, 2017 [id number] Holly HARE PATIENT [employer] ([id number]) FEP PRESCRIPT ION FEPRX Dec 13, 2017 [id number] Holly HARE PATIENT [place] FEP ([id number]) PRESCRIPT ION FEPRX Dec 13, 2017 [id number] [phone] Holly HARE PATIENT Selected Encounter This section includes the information on record at [place] for the Encounter. Date/Time Encounter Type Encounter Description Reason Provider Source Jan 17, 2025 09:42 AM Outpatient Encounter CLINICAL PHARMACY ARGENIS STORY [place] Encounter Template Text not used by [place] Plan of Treatment: Future Appointments (+ 6 [...] 20 appointments. The data comes from all [place] treatment facilities. Appointment Date/Time Appointment Type Appointme nt Facility Name Jan 30, 2025 08:00 AM AM[facility]ORY [place]IC[place] [facility] Feb 13, 2025 03:00 PM [facility] [place] [place] [facility] Mar 01, 2025 03:00 PM [facility] [place] [facility] [place] [facility] Mar 08, 2025 03:00 PM [facility] [place] [place] [facility] Mar 13, 2025 03:00 PM [facility] [place] [facility] [place] [facility] Mar 20, 2025 03:00 PM [facility] [place] [facility] [place] [facility] May 29, 2025 08:50 AM [facility] [place] [facility] Encounter Notes: All associated encounter notes This section contains the clinical notes associated to the Encounter. Date/Time Encounter Note(s) Provider Source Jan 17, 2025 09:42 AM PHARMACY SECURE ME SSAGING: [facility] TITLE: PHARMACY SECURE MESSAGING STANDARD TITLE: PHARMACY SECURE MESSAGING DATE OF NOTE: JAN 17, 2025@09:42 ENTRY DATE: JAN 17, 2025@08:42:24 AUTHOR: ARGENIS STORY EXP COSIGNER: URGENCY: STATUS: COMPLETED PHARMACY SECURE MESSAGING Has ADDENDA ------Original Message --- Sent: 01/17/2025 06:37 AM ET From: PETE HARE To: Bennie, *Ask a Pharmacist Subject: Medication:medication discontinuation Please discontinue and don't refill the Propranolol. I don't take it. ------Original Message --- Sent: 01/17/2025 09:42 AM ET From: ARGENIS STORY To: PETE HARE Subject: Medication:medication discontinuation Good morning, The propranolol prescription has been discontinued from your active medication. Have a great day! Thank you, Argenis Story CPhT /stefano/ Argenis Story Supervisor [employer] Signed: 01/17/2025 08:42 01/17/2025 ADDENDUM STATUS: COMPLETED Clay can not dictate his care or labs ordered by his PCP. He can discuss his medical concerns with PCP in a face to face appt for c/o fatigue one Dr. Phan whom is familiar with the returns. /stefano/ Kaylen Villalobos APRN, YRISC, C Dioni Powell [facility] Signed: 01/17/2025 15:41 Receipt Acknowledged By: * AWAITING SIGNATURE * CARLIE WEAVER JESSICA D [facility]
[2025-01-17 18:12] VITALS: BP 166/103; PULSE 95; RESP 14; TEMP 36.7; O2SAT 96; BMI 34.7
--- OUTSIDE RECORDS SUMMARY | 2025-01-17 18:12 | XMS_ITS | Continuity of Care Document ---
Author Name [facility] Organization DOD-DE Care Team Providers Care Lubricating Specialist Name Role Phone DOD-DE Unavailable Unavailable Problems Combined list of problems from Department of Defense and Veterans Affairs facilities. It does not include entries that were removed or entered in error. Problem Status Onset Date Problem Type Date of Resolution Comments Source ANOREXIA NERVOSA Active Condition DoD tobacco use Active Condition DoD OVERUSE SYNDROME Inactive Condition Run s 6-8 miles per dayFollow recommendations in handout for runner's knee Patient reassuredAlternate no impact aerobics into routine DoD ANXIETY DISORDER NOS Active Condition Provided a writ ten prescription for Xanax 0.5mg TID PRN anxiety attack. Ongoing occupational issue, which command is aware. Provided reassurance and information about his situation. No acute safety issues. 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 May also respond to use of an SSRI over the jail. Currently he is currently 5-10 pounds under his ideal weight, which is up from 15-20 pounds being underweight at 130-135 pounds. Tolerating progressive increase of weight -- mostly muscle. Does not desire individual therapy at the current time. Will continue to monitor and encourage additional treatment/support. Declines nutrition referral. DoD OCCUPATIONAL PROBLEM Active Condition Awaiting chain of command's decision on his issue. Likely to be administratively or make it to his ETS in the next couple of months. 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 DoD ADJUSTMENT DISORDER Active Condition reports acute anxiety at time and this is increasing. he has medications for this. r/o panic d/o. DoD BEREAVEMENT WITHOUT COMPLICATIONS Active Condition DoD ADJUSTMENT DISORDER WITH ANXIETY Active Condition DoD OBSESSIVE COMPULSIVE DISORDER Active Condition Will start Zolo ft 50mg x3 days and then increase to 100mg QD. Some occupational and moderate personal distressing effects. DoD GASTROENTERITIS Active Condition 20 y /o with the development of RLQ pain on Jan with patient presenting to ER for eval. No fever, no elevated WBC, CT of abn negative for APPY (reviewed CT with Dr. Chance CHAIDEZ). Patient denies n/v/d/snow/fever/malai se/increasing pain/change in pain ch DoD Patient Counseling: Inactive Condition Patient Counseling: DoD HEMORRHOIDS EXTERNAL Inactive Condition HEMORRHOIDS EXTERNAL DoD HEMORRHOIDS Inactive Condition HEMORRHOIDS DoD PATELLOFEMORAL SYNDROME Active Condition PATELLOFEMORAL SYNDROME DoD Other Physical Therapy Active Condition Other Physical Therapy DoD joint pain, localized in the knee Active Condition Pt sts he dislo cated his patella. Patella was in place on PE. Negative plain films. Neurovascular intact. DoD NORMAL EXAMINATION Inactive Condition NORMAL EXAMINATION DoD PATELLOFEMORAL SYNDROME RIGHT Inactive Condition PATELLOFEMORA L SYNDROME RIGHT [facility] Physical Examination Inactive Condition Physical Examination DoD INGROWING NAIL Inactive Condition INGROWING NAIL DoD PARONYCHIA LEFT SECOND TOE Inactive Condition PARONYCHIA LEFT SECOND TOE DoD INGROWING NAIL WITH INFECTION Inactive Condition INGROWING VICKIE L WITH INFECTION DoD ASTIGMATISM - REGULAR Active Condition DoD REFRACTIVE ERROR - MYOPIA Active Condition RX BVA; OTHERWI SE NORMAL OCULAR HEALTH; DEFER DFE DoD COMMON COLD Inactive Condition SM ATTRI BUTES SX TO TYPHOID IMMUNIZATION HE RECEIVED 48 HOURS AGO BUT ONLY ABNORMALITY ON PE WAS VERY MILD POSTERIOR PHARYNGEAL ERYTHEMA. DoD visit for: services physical Inactive Condition [facility] Acute meniscal tear, lateral Active Condition [facility] Allergic Rhinitis (SCT [id number]) Active Condition [facility] Anxiety (SCT 66673577) Active Condition [facility] Attention deficit hyperactivity disorder, predominantly inattentive type Active Condition [facility] Chronic depression Active Condition [facility] Chronic otitis media Active Condition [facility] Chronic post-traumatic stress disorder Active Condition [facility] Erectile dysfunction (SNOMED CT [id number]) Active Condition [facility] Exposure to potentially hazardous substance Active Condition [facility] Fatigue Active Condition [facility] GERD - Gastro-Esophageal Reflux Disease (SCT [id number]) Active Condition [facility] Hypothyroidism Active Condition [facility] Impingement syndrome of right shoulder region Active Condition [facility] Insomnia (SCT 429484112) Active Condition [facility] Irritable bowel syndrome with diarrhea Active Condition [facility] Knee joint pain (SNOMED CT [id number]) Active Condition [place] [facility] Low Back Pain (SCT [id number]) Active Condition [facility] Migraine Active Condition [place] [facility] Non-fluent speech Active Condition [facility] Obstructive sleep apnea syndrome Active Condition [facility] Patellar instability Active Condition [facility] Sciatica Active Condition [facility] Shoulder pain Active Condition [facility] Tinnitus Active Condition [facility] CONSTIPATION, unspecified (ICD-9-CM 564.00) Inactive Condition 12/09/2017 [place] [facility] Encounters for other Specified Administrative Purpose (ICD-9-CM V68.89) Inactive Condition 12/09/2017 [place] [facility] Fracture, Patella Inactive Condition 09/01/2024 [facility] No diagnosis on [place] I Inactive Condition 02/15/2020 [place] [facility] Other Malaise and Fatigue (ICD-9-CM 780.79) Inactive Condition 12/09/2017 [place] [facility] Pain in Joint, site unspecified (ICD-9-CM 719.40) Inactive Condition 12/09/2017 [place] [facility] Rectal Bleeding (ICD-9-CM 569.3) Inactive Condition 12/09/2017 [place] [facility] Unspecified internal derangement of knee (ICD-9-CM 717.9) Inactive Condition 12/09/2017 [facility] Diagnosis: ICD-10-CM F33.2 Major depressv disorder, recurrent severe w/o psych features Active Diagnosis [place] [facility] Diagnosis: ICD-10-CM M25.512 Pain in left shoulder Active Diagnosis [facility] Diagnosis: ICD-10-CM F33.9 Major depressive disorder, recurrent, unspecified Active Diagnosis [facility] Diagnosis: ICD-10-CM R53.83 Other fatigue Active Diagnosis [facility] Diagnosis: ICD-10-CM J02.9 Acute pharyngitis, unspecified Active Diagnosis [facility] Diagnosis: ICD-10-CM Z00.00 Encntr for general adult medical exam w/o abnormal findings Active Diagnosis [facility] Diagnosis: ICD-10-CM H10.31 Unspecified acute conjunctivitis, right eye Active Diagnosis [facility] Diagnosis: ICD-10-CM J01.80 Other acute sinusitis Active Diagnosis [facility] Diagnosis: ICD-10-CM K58.0 Irritable bowel syndrome with diarrhea Active Diagnosis [facility] Diagnosis: ICD-10-CM R10.13 Epigastric pain Active Diagnosis [facility] Diagnosis: ICD-10-CM R52 Pain, unspecified Active Diagnosis [facility] Diagnosis: ICD-10-CM R05.1 Acute cough Active Diagnosis [facility] Diagnosis: ICD-10-CM K02.52 Dental caries on pit and fissure surfc penetrat into dentin Active Diagnosis [facility] Diagnosis: ICD-10-CM Z23 Encounter for immunization Active Diagnosis [facility] Diagnosis: ICD-10-CM G43.709 Chronic migraine w/o aura, not intractable, w/o stat migr Active Diagnosis [facility] Diagnosis: ICD-10-CM G43.719 Chronic migraine w/o aura, intractable, w/o stat migr Active Diagnosis [facility] Diagnosis: ICD-10-CM E66.9 Obesity, unspecified Active Diagnosis [facility] Diagnosis: ICD-10-CM J06.9 Acute upper respiratory infection, unspecified Active Diagnosis [facility] Diagnosis: ICD-10-CM G43.D1 Abdominal migraine, intractable Active Diagnosis [facility] Diagnosis: ICD-10-CM B35.1 Tinea unguium Active Diagnosis [facility] Diagnosis: ICD-10-CM S10.86XA Insect bite of other specified part of neck, init encntr Active Diagnosis [facility] Diagnosis: ICD-10-CM R07.9 Chest pain, unspecified Active Diagnosis [facility] Medications Combined list of outpatient medications from Department of Defense and Veterans Affairs facilities.Medications provided include 1) outpatient medications from the last 15 months, and 2) patient-reported medications. Medication Details Route Status Patient Instructions Prescription Expires Prescription Number Last Dispense Date Ordering Provider Order Date Order Qty Source ALPRAZOLAM 0.25MG TAB TAKE ONE TABLET BY MOUTH ONCE A DAY NEEDED FOR PANIC DISORDER ORAL ACTIVE 06/30/2025 [id number] Lisa MYERS 2024 30 [facility] ARIPIPRAZOL E 5MG TAB TAKE ONE TABLET BY MOUTH ONCE A DAY FOR 7 DAYS, THEN TAKE TWO TABLETS ONCE A DAY ORAL HOLD 11/03/2025 [id number] 5 IVETTE HERNANDEZ 2024 60 [facility] Betamethaso ne Ointment 0.1% Topical APPLY TO AFFECTED AREA(S) TWICE DAILY NEEDEDAP PLY TO RASH 11/02/2024 [id number] 4 BALDO HAYES 2023 45 [facility] BETAMETHASO NE VALERATE 0.1% OINT,TOP APPLY TO AFFECTED AREA(S) TWICE DAILY NEEDED APPLY TO RASH TOPICA L ACTIVE 09/02/2025 [id number] 5 Lisa MYERS 2024 45 [facility] BETAMETHASO NE VALERATE 0.1% OINT,TOP APPLY TO AFFECTED AREA(S) TWICE DAILY NEEDED APPLY TO RASH TOPICA L DISCONT INUED 11/02/2024 [id number] 4 KAYLEE HAYES 2023 45 [facility] cholecalcif (VIT D3) 4,000 UNIT PO TAB TAKE ONE TABLET BY MOUTH ONCE A DAY FOR VITAMIN D DEFICIEN CY 10/27/2024 [id number] 4 MARILY MYERS 2023 100 [facility] CHOLECALCIF MYESHA 10MCG (400UNIT) TAB TAKE TWO TABLETS BY MOUTH ONCE A DAY FOR VITAMIN D DEFICIEN CY ORAL SUSPEND ED 09/14/2025 [id number] 5 Lisa MYERS 2024 200 [facility] CHOLECALCIF MYESHA 10MCG (400UNIT) TAB TAKE ONE TABLET BY MOUTH ONCE A DAY FOR VITAMIN D DEFICIEN CY ORAL DISCONT INUED (EDIT) 09/02/2025 [id number] 5 Lisa MYERSINE R 2024 100 [facility] CHOLECALCIF MYESHA 10MCG (400UNIT) TAB TAKE ONE TABLET BY MOUTH ONCE A DAY FOR VITAMIN D DEFICIEN CY ORAL DISCONT INUED 10/27/2024 [id number] 5 Lisa MYERS R 2023 100 [facility] CICLOPIROX 8 % TOP SOLN [6.6 ML] APPLY THIN LAYER EVENLY TO AFFECTED AREA(S) AT BEDTIMEO ALVAREZ PREVIOUS COAT TO ENTIRE NAIL AND SURROUND ING SKIN. 11/02/2024 [id number] 4 BALDO HAYES 2023 0 [facility] CICLOPIROX 8% SOLN,TOP APPLY THIN LAYER EVENLY TO AFFECTED AREA(S) AT BEDTIME OVER PREVIOUS COAT TO ENTIRE NAIL AND SURROUND ING SKIN. TOPICA L 11/02/2024 [id number] 4 KAYLEE HAYES 2023 6.6 [facility] clomiPHENE citrate 50 MG ORAL TAB TAKE ONE-HALF TABLET BY MOUTH EVERY OTHER DAY 02/08/2024 [id number] 4 MARTINA MURGUIA 2023 30 [facility] CLOMIPHENE CITRATE 50MG TAB TAKE ONE-HALF TABLET BY MOUTH EVERY OTHER DAY ORAL 02/08/2024 [id number] 4 TOMÁS MURGUIA 2023 30 [facility] FAMOTIDINE 20MG TAB TAKE ONE TABLET BY MOUTH AT BEDTIME FOR GASTROES OPHAGEAL REFLUX DISEASE ORAL DISCONT INUED 07/17/2024 [id number] 4 MICHELLE HOANG 2023 30 [facility] FAMOTIDINE 20MG TAB TAKE ONE TABLET BY MOUTH AT BEDTIME FOR GASTROES OPHAGEAL REFLUX DISEASE ORAL 10/01/2024 [id number] 5 Lisa MYERS R 2024 30 [facility] FEXOFENADIN E HCL 180MG TAB TAKE ONE TABLET BY MOUTH DIRECTED TITRATE BETWEEN TAKING 1 TABLET 2 TO 4 TIMES A DAY FOR ALLERGY SYMPTOMS ORAL ACTIVE 12/29/2025 [id number] 5 Lisa MYERS R 2024 120 [facility] FEXOFENADIN E HCL 180MG TAB TAKE ONE TABLET BY MOUTH DIRECTED TITRATE BETWEEN TAKING 1 TABLET 2 TO 4 TIMES A DAY FOR ALLERGY SYMPTOMS ORAL DISCONT INUED 01/06/2025 [id number] 5 Lisa MYERS R 2023 120 [facility] FEXOFENADIN E HCL 180MG TAB TAKE ONE TABLET BY MOUTH DIRECTED TITRATE BETWEEN TAKING 1 TABLET 2 TO 4 TIMES A DAY FOR ALLERGY SYMPTOMS ORAL DISCONT INUED 07/10/2024 [id number] NABOR ABRAHAM,ALTON E R 2023 120 [facility] [facility] FLONASE-OTC (BRAND) 50 MCG FRANCISCO SPSN [9.9] INSTILL 1 SPRAY IN NOSTRIL( S) ONCE A DAY NEEDED FOR RHINITIS (MUST BE USED DIRECTED FOR MINIMUM OF 21 DAYS TO PROVIDE ADEQUATE BENEFITS ) INSTRUCT ED NOT TO USE BUT FOR 2 WEEKS 01/24/2024 [id number] 4 MARILY MYERS 2023 3 [facility] FLUTICASONE PROPIONATE 50MCG/SPRAY SOLN,NASAL, 16GM INSTILL 1 SPRAY IN NOSTRIL( S) ONCE A DAY NEEDED FOR RHINITIS (MUST BE USED DIRECTED FOR MINIMUM OF 21 DAYS TO PROVIDE ADEQUATE BENEFITS ) INSTRUCT ED NOT TO USE BUT FOR 2 WEEKS (MUST BE USED DIRECTED FOR MINIMUM OF 21 DAYS TO PROVIDE ADEQUATE BENEFITS ) INSTRUCT ED NOT TO USE BUT FOR 2 WEEKS NASAL 01/24/2024 [id number] 4 Lisa MYERS R 2023 3 [facility] LEVOTHYROXI NE NA 100MCG TAB TAKE ONE TABLET BY MOUTH EVERY MORNING BEFORE A MEAL FOR HYPOTHYR OIDISM TAKE 30 MINUTES BEFORE FOOD. TAKE SEPARATE LY FROM ALL OTHER MEDICATI ONS. ORAL SUSPEND ED 06/19/2025 [id number] 5 Lisa MYERS R [address] [place] [address] CB LEVOTHYROXI NE NA 100MCG TAB (SYNTHROID) TAKE ONE TABLET BY MOUTH ONCE A DAY TAKE 30 MINUTES BEFORE FOOD. TAKE SEPARATE LY FROM ALL OTHER MEDICATI ONS. ORAL DISCONT INUED 01/24/2024 [id number] 4 Lisa MYERS R [address] [place] [address] CB LEVOTHYROXI NE NA 100MCG TAB (SYNTHROID) TAKE ONE TABLET BY MOUTH ONCE A DAY TAKE 30 MINUTES BEFORE FOOD. TAKE SEPARATE LY FROM ALL OTHER MEDICATI ONS. ORAL 04/05/2024 [id number] 4 Lisa MYERS R [address] [place] [address] MAGNESIUM OXIDE 400MG TAB TAKE ONE TABLET BY MOUTH TWICE A DAY MIGRAINE PREVENTI ON DONT TAKE IT AT THE SAME TIME WITH LEVOTHYR XOINE, AT LEAST 60 MINUTES LATER DONT TAKE IT AT THE SAME TIME WITH LEVOTHYR XOINE, AT LEAST 60 MINUTES LATER ORAL DISCONT INUED BY PROVIDE R 04/02/2025 [id number] 4 JAMAR NORIEGA MMAD PRADEEP 2023 240 [place] [facility] OXCARBAZEPI NE 150MG TAB TAKE ONE TABLET BY MOUTH TWICE A DAY ORAL ACTIVE 02/04/2025 [id number] FRANCINE GONSALES 2024 60 [place] [facility] PANTOPRAZOL E NA 20MG TAB,EC TAKE ONE TABLET BY MOUTH EVERY MORNING BEFORE A MEAL FOR GASTROES OPHAGEAL REFLUX DISEASE TAKE 30 MINUTES BEFORE MEAL(S) ORAL ACTIVE 03/28/2025 [id number] 5 Lisa MYERS R [address] [place] [address] PANTOPRAZOL E NA 20MG TAB,EC TAKE ONE TABLET BY MOUTH EVERY MORNING BEFORE A MEAL FOR GASTROES OPHAGEAL REFLUX DISEASE TAKE 30 MINUTES BEFORE MEAL(S) ORAL DISCONT INUED 11/30/2024 [id number] 5 Lisa MYERS R [address] [place] [address] [facility]OC PANTOPRAZOL E NA 20MG TAB,EC TAKE ONE TABLET BY MOUTH EVERY MORNING BEFORE A MEAL FOR GASTROES OPHAGEAL REFLUX DISEASE TAKE 30 MINUTES BEFORE MEAL(S) ORAL DISCONT INUED 09/15/2024 [id number] 4 MICHELLE HOANG [address] [place] [address] [facility] PROPRANOLOL HCL 10MG TAB TAKE ONE TABLET BY MOUTH THREE TIMES A DAY NEEDED ORAL DISCONT INUED 03/28/2025 [id number] 5 Lisa MYERS R [address] [place] [address] [facility] PROPRANOLOL HCL 10MG TAB TAKE ONE TABLET BY MOUTH THREE TIMES A DAY NEEDED ORAL DISCONT INUED 02/13/2025 [id number] IVETTE HERNANDEZ 2024 90 [place] [facility] PROPRANOLOL HCL 10MG TAB TAKE ONE TABLET BY MOUTH THREE TIMES A DAY NEEDED ORAL DISCONT INUED 11/03/2025 [id number] IVETTE HERNANDEZ 2024 90 [place] [facility] RIBOFLAVIN 100MG TAB TAKE FOUR TABLETS BY MOUTH ONCE A DAY FOR MIGRAINE ORAL DISCONT INUED BY LEA Daniel 04/02/2025 [id number] JAMAR NORIEGA MMAD PR[facility]EEP 2023 400 [place] [facility] RIMEGEPANT 75MG TAB,ORAL DISINTEGRAT ING TAKE ONE TABLET UNDER THE TONGUE ONCE FOR MIGRAINE HEADACHE USE DRY HANDS TO PEEL FOIL TO REMOVE TABLET. DO NOT PUSH TABLET THROUGH FOIL. MAXIMUM: 75MG IN 24 HOURS. SUBLIN GUAL DISCONT INUED 04/07/2025 [id number] 4 JAMAR NORIEGAD PRADEEP 2023 8 [place] [facility] SEMAGLUTIDE (WT LOSS) 0.25MG/0.5M L INJ,SOLN,PE N,0.5ML INJECT 0.25MG UNDER THE SKIN EVERY WEEK FOR 30 DAYS SUBCUT ANEOUS DISCONT INUED 02/27/2024 [id number] TOMÁS MURGUIA DONALD 2023 4 [facility] SEMAGLUTIDE (WT LOSS) 0.5MG/0.5ML INJ,SOLN,PE N,0.5ML INJECT 0.5MG UNDER THE SKIN EVERY WEEK FOR 30 DAYS SUBCUT ANEOUS DISCONT INUED 01/28/2025 [id number] TOMÁS MURGUIA DONALD 2023 4 [facility] TERBINAFINE HCL 250MG TAB TAKE ONE TABLET BY MOUTH ONCE A DAY ORAL ACTIVE 01/28/2025 [id number] WAGNER ENCISO 2024 30 [facility] TERBINAFINE HCL 250MG TAB TAKE ONE TABLET BY MOUTH ONCE A DAY FOR TINEA PEDIS ORAL 12/11/2024 [id number] 5 WAGNER ENCISO 2024 30 [facility] UBROGEPANT 100MG TAB TAKE ONE TABLET BY MOUTH ONE-TIME FOR MIGRAINE HEADACHE TAKE AT ONSET OF HEADACHE . MAY REPEAT AFTER 2 HOURS. NOT TO EXCEED 200MG IN 24 HOURS. ORAL DISCONT INUED BY PROVIDE R 04/20/2025 [id number] JMAAR NORIEGA MMAD PRADEEP 2023 10 [facility] Fexofenadin e Hydrochlori de (Telfast) Tablet 180 mg Oral TAKE ONE TABLET BY MOUTH DIRECTED TITRATE BETWEEN TAKING 1 TABLET 2 TO 4 TIMES A DAY FOR ALLERGY SYMPTOMS 07/10/2024 [id number] 4 LAUREN ACOSTA 2023 120 [facility] VORTIOXETIN E 5MG TAB TAKE ONE TABLET BY MOUTH ONCE A DAY FOR DEPRESSI ON ORAL DISCONT INUED 01/07/2025 [id number] 5 FRANCINE GONSALES 2024 30 [facility] Allergies, Adverse Reactions, Alerts Combined list of allergies from Department of Defense and Veterans Affairs facilities. It does not include entries that were removed or entered in error. Substance Category Reaction Severity Reaction type Status Date Reported Comments Source ARIPIPRAZOLE Propensity to adverse reactions to drug (finding) Feeling irritable MILD active 5 [facility] BACTRIM DS Propensity to adverse reactions to drug (finding) Itching active 1 [facility] CELEBREX Propensity to adverse reactions to drug (finding) Itching active 1 [facility] CELECOXIB Drug allergy (disorder) Pruritus active 1 [facility] CITALOPRAM Propensity to adverse reactions to drug (finding) Aggressive behavior MODERATE active 5 [facility] CLINDAMYCIN Drug allergy (disorder) Eruption of skin active 9 [facility] CLINDAMYCIN Propensity to adverse reactions to drug (finding) Eruption active 9 [facility] FLUOXETINE Propensity to adverse reactions to drug (finding) Aggressive behavior MODERATE active 5 [facility] Gabapentin Drug allergy (disorder) Drug-induce d flushing active 7 [facility] GABAPENTIN Propensity to adverse reactions to drug (finding) Drug-induce d flushing active 7 [facility] PAROXETINE Propensity to adverse reactions to drug (finding) Migraine, Finding of vomiting active 9 [facility] SERTRALINE Propensity to adverse reactions to drug (finding) Aggressive behavior MODERATE active 5 [facility] SULFA DRUGS Propensity to adverse reactions to drug (finding) Lip swelling, Urticaria, Paresthesia , Tongue swelling, Erythema SEVERE active 4 [facility] Sumatriptan Drug allergy (disorder) Headache active 8 [facility] SUMATRIPTAN Propensity to adverse reactions to drug (finding) Headache active 8 [facility] TRIMETHOPRIM Drug allergy (disorder) Pruritus active 1 [facility] TRINTELLIX Propensity to adverse reactions to drug (finding) Insomnia, Feeling irritable MILD active 5 [facility] TYPHOID VACC CAPSU POLYSACC Drug allergy (disorder) Eruption of skin active 7 [facility] TYPHOID VACCINE Propensity to adverse reactions to drug (finding) Eruption active 7 [facility] VENLAFAXINE Propensity to adverse reactions to drug (finding) Aggressive behavior MODERATE active 5 [facility] ZONISAMIDE Propensity to adverse reactions to drug (finding) Respiratory distress active 9 [facility] Immunizations Combined list of available immunizations from the Department of Defense and Veterans Affairs facilities. Immunization Series Date Given Administered By Site Reaction Lot Number CVX Code Drug A/C Technician Status Comments Source INFLUENZA, SPLIT VIRUS, TRIVALENT, PF 2023 KEI FEUNTES RIGHT DELTO ID [id number] 140 complet ed [facility] MMR 2023 KEI FUENTES LEFT DELTO ID [id number] 03 complet ed [facility] MMR 1 2023 ANDREW MARIA LEFT ARM [id number] 03 complet ed [facility] INFLUENZA, INJECTABLE, QUADRIVALENT, PRESERVATIVE FREE 2022 JANY WEAVER RIGHT DELTO ID [id number] 150 complet ed [facility] COVID-19 (ERIC), VECTOR-NR, [id number], PF, 0.5 ML 1 2020 212 complet ed JSN; [id number]; 1 [facility] TDAP 2019 115 complet ed [facility] PNEUMOCOCCAL CONJUGATE PCV 13 1 2018 133 complet ed HISTORICA L INFORMATI ON - FROM OTHER [facility] INFLUENZA, INJECTABLE, QUADRIVALENT, PRESERVATIVE FREE 2018 150 complet ed [facility] INFLUENZA, SEASONAL, INJECTABLE, PRESERVATIVE FREE 2017 140 complet ed Right Deltoid [facility] TDAP 2011 115 complet ed [facility] INFLUENZA, UNSPECIFIED FORMULATION 2008 88 complet ed [facility] INFLUENZA, UNSPECIFIED FORMULATION 2006 88 complet ed [facility] HEP A, PED/ADOL, 2 DOSE 2 1998 83 complet ed HISTORICA L INFORMATI ON - FROM OTHER REGISTRY, [facility] N TD (ADULT), 2 LF TETANUS TOXOID, PRESERVATIVE FREE, ADSORBED 5 1998 09 complet ed HISTORICA L INFORMATI ON - [facility], [facility], PED/ADOL, 2 DOSE 1997 83 complet ed HISTORICA L INFORMATI ON - FROM OTHER REGISTRY, [facility] N HEP A, PED/ADOL, 2 DOSE 1 1997 83 complet ed HISTORICA L INFORMATI ON - FROM OTHER REGISTRY, [facility] N HEP B, UNSPECIFIED FORMULATION 3 1996 45 complet ed HISTORICA L INFORMATI ON - FROM OTHER REGISTRY, [facility] N HEP B, UNSPECIFIED FORMULATION 2 1995 45 complet ed HISTORICA L INFORMATI ON - FROM OTHER REGISTRY, [facility] [facility] N HEP B, UNSPECIFIED FORMULATION 1 1995 45 complet ed HISTORICA L INFORMATI ON - FROM OTHER REGISTRY, [facility] N MMR 2 1991 03 complet ed HISTORICA L INFORMATI ON - FROM OTHER REGISTRY, [facility] N DTP 4 1988 01 complet ed HISTORICA L INFORMATI ON - FROM OTHER REGISTRY, [facility] N TRIVALENT OPV 5 1988 02 complet ed HISTORICA L INFORMATI ON - FROM OTHER REGISTRY, [facility] N DTP 1986 01 complet ed HISTORICA L INFORMATI ON - FROM OTHER REGISTRY, [facility] N MMR 1 1986 03 complet ed HISTORICA L INFORMATI ON - FROM OTHER REGISTRY, [facility] N TRIVALENT OPV 4 1986 02 complet ed HISTORICA L INFORMATI ON - FROM OTHER [facility], [facility] N DTP 3 1985 01 complet ed HISTORICA L INFORMATI ON - FROM OTHER REGISTRY, [facility] TRIVALENT OPV 3 1985 02 complet ed HISTORICA L INFORMATI ON - FROM OTHER REGISTRY, [facility] DTP 2 1984 01 complet ed HISTORICA L INFORMATI ON - FROM OTHER REGISTRY, [facility] TRIVALENT OPV 2 1984 02 complet ed HISTORICA L INFORMATI ON - FROM OTHER REGISTRY, [facility] DTP 1 1984 01 complet ed HISTORICA L INFORMATI ON - FROM OTHER REGISTRY, [facility] TRIVALENT OPV 1 1984 02 complet ed HISTORICA L INFORMATI ON - FROM OTHER REGISTRY, [facility] Results Combined list of recent chemistry, hematology and other laboratory results from Department of Defense and [employer] Affairs, ranging from 15 months to all on record, depending upon the facility. Order Name Results Value Reference Range Date Interpretation Specimen Comments Source VITAMIN B1 VITAMIN B1 14 nmol/L 8 - 30 11/15 Specimen Type: BLOOD Comment: Vitamin supplementa tion within 24 hours prior to blood draw may affect the accuracy of the results. This test was developed and its analytical performance characteris tics have been determined by [facility] [employer] [facility] [employer] [place], [place]. It has not been cleared or approved by the U.S. Food and Drug Administrat ion. This assay has been validated pursuant to the CLIA regulations and is used for clinical purposes. Test Performed by [employer], [facility], [address] [facility], [place], [place] Cameron Reddy M.D., Ph.D., Director of Laboratorie s , CLIA [id number] Ordering Provider: DRAGAN MYERS Report Released Date/Time: November 15, 2024 04:03 PM Reporting Lab: [place] [facility] [address] [place] [address] Performing Lab: [place] [facility] [address] [facility] [place] [facility] B12 COBALAMIN (VITAMIN B12) [MASS/VOLUM E] IN SERUM OR PLASMA 809 pg/mL 213 - 816 11/15 Specimen Type: SERUM No comment entered. Ordering Provider: DRAGAN MYERS Report Released Date/Time: November 15, 2024 04:03 PM Reporting Lab: [place] [facility] [address] [place] [address] Performing Lab: [place] [facility] [address] [place] [address] [facility] COMPREHEN SIVE METABOLIC PANEL CREATININE [MASS/VOLUM E] IN SERUM OR PLASMA 1.19 mg/dL 0.7 - 1.3 11/15 Specimen Type: PLASMA No comment entered. Ordering Provider: DRAGAN MYERS R Report Released Date/Time: November 15, 2024 04:03 PM Reporting Lab: [place] [facility] [address] [place] [address] Performing Lab: [place] [facility] [address] [place] [address] [facility] COMPREHEN SIVE METABOLIC PANEL UREA NITROGEN [MASS/VOLUM E] IN SERUM OR PLASMA 12 mg/dL 9 - 25 11/15 Specimen Type: PLASMA No comment entered. Ordering Provider: DRAGAN MYERS R Report Released Date/Time: November 15, 2024 04:03 PM Reporting Lab: [place] [facility] [address] [place] [address] Performing Lab: [place] [facility] [address] [place] [address] [facility] COMPREHEN SIVE METABOLIC PANEL GLUCOSE [MASS/VOLUM E] IN SERUM OR PLASMA 97 mg/dL 72 - 99 11/15 Specimen Type: PLASMA No comment entered. Ordering Provider: DRAGAN MYERS R Report Released Date/Time: November 15, 2024 04:03 PM Reporting Lab: [place] [facility] [address] [place] [address] Performing Lab: [place] [facility] [address] [place] [address] [facility] COMPREHEN SIVE METABOLIC PANEL SODIUM [MOLES/VOLU ME] IN SERUM OR PLASMA 143 meq/L 136 - 145 11/15 Specimen Type: PLASMA No comment entered. Ordering Provider: DRAGAN MYERS Report Released Date/Time: November 15, 2024 04:03 PM Reporting Lab: [place] [facility] [address] [place] [address] Performing Lab: [place] [facility] [address] [place] [address] [facility] COMPREHEN SIVE METABOLIC PANEL POTASSIUM [MOLES/VOLU ME] IN SERUM OR PLASMA 4.0 meq/L 3.5 - 5 11/15 Specimen Type: PLASMA No comment entered. Ordering Provider: DRAGAN MYERS Report Released Date/Time: November 15, 2024 04:03 PM Reporting Lab: [place] [facility] [address] [place] [address] Performing Lab: [place] [facility] [address] [place] [address] [facility] COMPREHEN SIVE METABOLIC PANEL CHLORIDE [MOLES/VOLU ME] IN SERUM OR PLASMA 109 meq/L 98 - 107 11/15 H Specimen Type: PLASMA No comment entered. Ordering Provider: DRAGAN MYERS Report Released Date/Time: November 15, 2024 04:03 PM Reporting Lab: [place] [facility] [address] [place] [address] Performing Lab: [place] [facility] [address] [place] [address] [facility] COMPREHEN SIVE METABOLIC PANEL CARBON DIOXIDE, TOTAL [MOLES/VOLU ME] IN SERUM OR PLASMA 26 meq/L 22 - 31 11/15 Specimen Type: PLASMA No comment entered. Ordering Provider: DRAGAN MYERS Report Released Date/Time: November 15, 2024 04:03 PM Reporting Lab: [place] [facility] [address] [place] [address] Performing Lab[place] [facility] [address] [place] [address] [facility] COMPREHEN SIVE METABOLIC PANEL CALCIUM [MASS/VOLUM E] IN SERUM OR PLASMA 9.1 mg/dL 8.4 - 10.4 11/15 Specimen Type: PLASMA No comment entered. Ordering Provider: DRAGAN MYERS Report Released Date/Time: November 15, 2024 04:03 PM Reporting Lab: [place] [facility] [address] [place] [address] Performing Lab: [place] [facility] [address] [place] [address] [facility] COMPREHEN SIVE METABOLIC PANEL PROTEIN [MASS/VOLUM E] IN SERUM OR PLASMA 7.2 g/dL 6 - 8.6 11/15 Specimen Type: PLASMA No comment entered. Ordering Provider: DRAGAN MYERS Report Released Date/Time: November 15, 2024 04:03 PM Reporting Lab: [place] [facility] [address] [place] [address] Performing Lab: [place] [facility] [address] [place] [address] [facility] COMPREHEN SIVE METABOLIC PANEL ALBUMIN [MASS/VOLUM E] IN SERUM OR PLASMA 4.7 g/dL 3.4 - 5 11/15 Specimen Type: PLASMA No comment entered. Ordering Provider: DRAGAN MYERS R Report Released Date/Time: November 15, 2024 04:03 PM Reporting Lab: [place] [facility] [address] [place] [id number] Performing Lab: [place] [facility] [address] [place] [address] [facility] COMPREHEN SIVE METABOLIC PANEL BILIRUBIN.T OTAL [MASS/VOLUM E] IN SERUM OR PLASMA 0.5 mg/dL 0.2 - 1.2 11/15 Specimen Type: PLASMA No comment entered. Ordering Provider: DRAGAN MYERS Report Released Date/Time: November 15, 2024 04:03 PM Reporting Lab: [place] [facility] [address] [place] [id number] Performing Lab: [place] [facility] [address] [place] [address] [facility] COMPREHEN SIVE METABOLIC PANEL ALKALINE PHOSPHATASE [ENZYMATIC ACTIVITY/VO LUME] IN SERUM OR PLASMA 69 U/L 40 - 150 11/15 Specimen Type: PLASMA No comment entered. Ordering Provider: DRAGAN MYERS R Report Released Date/Time: November 15, 2024 04:03 PM Reporting Lab: [place] [facility] [address] [place] [address] Performing Lab: [place] [facility] [address] [place] [address] [facility] COMPREHEN SIVE METABOLIC PANEL ASPARTATE AMINOTRANSF ERASE [ENZYMATIC ACTIVITY/VO LUME] IN SERUM OR PLASMA 28 U/L 5 - 34 11/15 Specimen Type: PLASMA No comment entered. Ordering Provider: DRAGAN MYERS Report Released Date/Time: November 15, 2024 04:03 PM Reporting Lab: [place] [facility] [address] [place] [address] Performing Lab: [place] [facility] [address] [place] [address] [facility] COMPREHEN SIVE METABOLIC PANEL ALANINE AMINOTRANSF ERASE [ENZYMATIC ACTIVITY/VO LUME] IN SERUM OR PLASMA 41 U/L 8 - 40 11/15 H Specimen Type: PLASMA No comment entered. Ordering Provider: DRAGAN MYERS R Report Released Date/Time: November 15, 2024 04:03 PM Reporting Lab: [place] [facility] [address] [place] [address] Performing Lab: [place] [facility] [address] [place] [address] [facility] COMPREHEN SIVE METABOLIC PANEL GLOMERULAR FILTRATION RATE/1.73 SQ M.PREDICTED [VOLUME RATE/AREA] IN SERUM, PLASMA OR BLOOD BY CREATININE- BASED FORMULA (CKD-EPI 2020) 80 11/15 Specimen Type: PLASMA No comment entered. Ordering Provider: DRAGAN MYERS R Report Released Date/Time: November 15, 2024 04:03 PM Reporting Lab: [place] [facility] [address] [place] [address] Performing Lab: [place] [facility] [address] [place] [address] [facility] ANCILLARY STREP (PB) ANCILLARY STREP (PB) negative 10/03 Specimen Type: SWAB Comment: Test performed by: Sammy No [id number] Meter #: [id number] Ordering Provider: DRAGAN MYERS Report Released Date/Time: Oct 03, 2024 08:39 AM Reporting Lab: [facility] [address] [facility] [address] Performing Lab: [place] [facility] [address] [facility] [address] [facility] HGA1C HEMOGLOBIN A1C/HEMOGLO BIN.TOTAL IN BLOOD 5.1 4.0 - 6.0 09/09 Specimen Type: BLOOD No comment entered. Ordering Provider: DRAGAN MYERS Report Released Date/Time: Sep 01, 2024 11:27 AM Reporting Lab: [place] [facility] [address] [place] [address] Performing Lab: [place] [facility] [address] [place] [address] [facility] CHOLESTER OL PANEL (PB) CHOLESTEROL [MASS/VOLUM E] IN SERUM OR PLASMA 179 mg/dL 0 - 200 09/09 Specimen Type: PLASMA No comment entered. Ordering Provider: DRAGAN MYERS Report Released Date/Time: Sep 01, 2024 11:27 AM Reporting Lab: [place] [facility] [address] [place] [address] Performing Lab: [place] [facility] [address] [place] [address] [facility] CHOLESTER OL PANEL (PB) TRIGLYCERID E [MASS/VOLUM E] IN SERUM OR PLASMA 84 mg/dL 0 - 150 09/09 Specimen Type: PLASMA No comment entered. Ordering Provider: DRAGAN MYERS Report Released Date/Time: Sep 01, 2024 11:27 AM Reporting Lab: [place] [facility] [address] [place] [address] Performing Lab: [place] [facility] [address] [place] [address] [facility] CHOLESTER OL PANEL (PB) CHOLESTEROL IN LDL [MASS/VOLUM E] IN SERUM OR PLASMA BY CALCULATION 110.2 mg/dL 09/09 Specimen Type: PLASMA No comment entered. Ordering Provider: DRAGAN MYERS Report Released Date/Time: Sep 01, 2024 11:27 AM Reporting Lab: [place] [facility] [address] [place] [address] Performing Lab: [place] [facility] [address] [place] [address] [facility] CHOLESTER OL PANEL (PB) CHOLESTEROL IN HDL [MASS/VOLUM E] IN SERUM OR PLASMA 52.0 mg/dL 40 09/09 H Specimen Type: PLASMA No comment entered. Ordering Provider: DRAGAN MYERS Report Released Date/Time: Sep 01, 2024 11:27 AM Reporting Lab: [place] [facility] [address] [place] [address] Performing Lab: [place] [facility] [address] [place] [address] [facility] CHOLESTER OL PANEL (PB) CHOLESTEROL IN HDL/CHOLEST MYESHA.TOTAL [MASS RATIO] IN SERUM OR PLASMA 29.1 25 09/09 Specimen Type: PLASMA No comment entered. Ordering Provider: DRAGAN MYERS Report Released Date/Time: Sep 01, 2024 11:27 AM Reporting Lab: [place] [facility] [address] [place] [address] Performing Lab: [place] [facility] [address] [place] [phone] [facility] TSH (MA-PB) THYROTROPIN [UNITS/VOLU ME] IN SERUM OR PLASMA 0.973 u[IU]/mL 0.47 - 5 09/09 Specimen Type: SERUM No comment entered. Ordering Provider: DRAGAN MYERS Report Released Date/Time: Sep 01, 2024 11:27 AM Reporting Lab: [place] [facility] [address] [place] [address] Performing Lab: [place] [facility] [address] [place] [address] [facility] PROST. SPECIFIC AG.(PB-ST L) PROSTATE SPECIFIC AG [MASS/VOLUM E] IN SERUM OR PLASMA 0.41 ng/mL 0 - 4 09/09 Specimen Type: SERUM No comment entered. Ordering Provider: DRAGAN MYERS R Report Released Date/Time: Sep 01, 2024 11:27 AM Reporting Lab: [place] [facility] [address] [place] [address] Performing Lab: [place] [facility] [address] [place] [address] [facility] VITAMIN D, 25-HYDROX Y 25-HYDROXYV ITAMIN D3 [MASS/VOLUM E] IN SERUM OR PLASMA 37.0 ng/mL 30 - 96 09/09 Specimen Type: SERUM No comment entered. Ordering Provider: DRAGAN MYERS R Report Released Date/Time: Sep 01, 2024 11:27 AM Reporting Lab: [place] [facility] [address] [place] [address] Performing Lab: [place] [facility] [address] [place] [address] [facility] COMPREHEN SIVE METABOLIC PANEL CREATININE [MASS/VOLUM E] IN SERUM OR PLASMA 1.07 mg/dL 0.7 - 1.3 09/09 Specimen Type: PLASMA No comment entered. Ordering Provider: DRAGAN MYERS R Report Released Date/Time: Sep 01, 2024 11:27 AM Reporting Lab: [place] [facility] [address] [place] [address] Performing Lab: [place] [facility] [address] [place] [address] [facility] COMPREHEN SIVE METABOLIC PANEL UREA NITROGEN [MASS/VOLUM E] IN SERUM OR PLASMA 17 mg/dL 9 - 25 09/09 Specimen Type: PLASMA No comment entered. Ordering Provider: DRAGAN MYERS R Report Released Date/Time: Sep 01, 2024 11:27 AM Reporting Lab: [place] [facility] [address] [place] [address] Performing Lab: [place] [facility] [address] [place] [address] [facility] COMPREHEN SIVE METABOLIC PANEL GLUCOSE [MASS/VOLUM E] IN SERUM OR PLASMA 86 mg/dL 72 - 99 09/09 Specimen Type: PLASMA No comment entered. Ordering Provider: DRAGAN MYERS R Report Released Date/Time: Sep 01, 2024 11:27 AM Reporting Lab: [place] [facility] [address] [place] [address] Performing Lab: [place] [facility] [address] [place] [address] [facility] COMPREHEN SIVE METABOLIC PANEL SODIUM [MOLES/VOLU ME] IN SERUM OR PLASMA 143 meq/L 136 - 145 09/09 Specimen Type: PLASMA No comment entered. Ordering Provider: DRAGAN MYERS R Report Released Date/Time: Sep 01, 2024 11:27 AM Reporting Lab: [place] [facility] [address] [place] [address] Performing Lab: [place] [facility] [address] [place] [address] [facility] COMPREHEN SIVE METABOLIC PANEL POTASSIUM [MOLES/VOLU ME] IN SERUM OR PLASMA 4.1 meq/L 3.5 - 5 09/09 Specimen Type: PLASMA No comment entered. Ordering Provider: DRAGAN MYERS R Report Released Date/Time: Sep 01, 2024 11:27 AM Reporting Lab: [place] [facility] [address] [place] [address] Performing Lab: [place] [facility] [address] [place] [address] [facility] COMPREHEN SIVE METABOLIC PANEL CHLORIDE [MOLES/VOLU ME] IN SERUM OR PLASMA 112 meq/L 98 - 107 09/09 H Specimen Type: PLASMA No comment entered. Ordering Provider: DRAGAN MYERS Report Released Date/Time: Sep 01, 2024 11:27 AM Reporting Lab: [place] [facility] [address] [place] [address] Performing Lab: [place] [facility] [address] [place] [address] [facility] COMPREHEN SIVE METABOLIC PANEL CARBON DIOXIDE, TOTAL [MOLES/VOLU ME] IN SERUM OR PLASMA 23 meq/L 22 - 31 09/09 Specimen Type: PLASMA No comment entered. Ordering Provider: DRAGAN MYERS Report Released Date/Time: Sep 01, 2024 11:27 AM Reporting Lab: [place] [facility] [address] [place] [address] Performing Lab: [place] [facility] [address] [place] [address] [facility] COMPREHEN SIVE METABOLIC PANEL CALCIUM [MASS/VOLUM E] IN SERUM OR PLASMA 8.9 mg/dL 8.4 - 10.4 09/09 Specimen Type: PLASMA No comment entered. Ordering Provider: DRAGAN MYERS R Report Released Date/Time: Sep 01, 2024 11:27 AM Reporting Lab: [place] [facility] [address] [place] [address] Performing Lab: [place] [facility] [address] [place] [address] [facility] COMPREHEN SIVE METABOLIC PANEL PROTEIN [MASS/VOLUM E] IN SERUM OR PLASMA 7.2 g/dL 6 - 8.6 09/09 Specimen Type: PLASMA No comment entered. Ordering Provider: DRAGAN MYERS R Report Released Date/Time: Sep 01, 2024 11:27 AM Reporting Lab: [place] [facility] [address] [place] [address] Performing Lab: [place] [facility] [address] [place] [address] [facility] COMPREHEN SIVE METABOLIC PANEL ALBUMIN [MASS/VOLUM E] IN SERUM OR PLASMA 4.7 g/dL 3.4 - 5 09/09 Specimen Type: PLASMA No comment entered. Ordering Provider: DRAGAN MYERS R Report Released Date/Time: Sep 01, 2024 11:27 AM Reporting Lab: [place] [facility] [address] [place] [address] Performing Lab: [place] [facility] [address] [place] [address] [facility] COMPREHEN SIVE METABOLIC PANEL BILIRUBIN.T OTAL [MASS/VOLUM E] IN SERUM OR PLASMA 0.6 mg/dL 0.2 - 1.2 09/09 Specimen Type: PLASMA No comment entered. Ordering Provider: DRAGAN MYERS R Report Released Date/Time: Sep 01, 2024 11:27 AM Reporting Lab: [place] [facility] [address] [place] [address] Performing Lab: [place] [facility] [address] [place] [address] [facility] COMPREHEN SIVE METABOLIC PANEL ALKALINE PHOSPHATASE [ENZYMATIC ACTIVITY/VO LUME] IN SERUM OR PLASMA 63 U/L 40 - 150 09/09 Specimen Type: PLASMA No comment entered. Ordering Provider: DRAGAN MYERS R Report Released Date/Time: Sep 01, 2024 11:27 AM Reporting Lab: [place] [facility] [address] [place] [address] Performing Lab: [place] [facility] [address] [place] [address] [facility] COMPREHEN SIVE METABOLIC PANEL ASPARTATE AMINOTRANSF ERASE [ENZYMATIC ACTIVITY/VO LUME] IN SERUM OR PLASMA 46 U/L 5 - 34 09/09 H Specimen Type: PLASMA No comment entered. Ordering Provider: DRAGAN MYERS R Report Released Date/Time: Sep 01, 2024 11:27 AM Reporting Lab: [place] [facility] [address] [place] [address] Performing Lab[facility] [place] [facility] [address] [place] [address] [facility] COMPREHEN SIVE METABOLIC PANEL ALANINE AMINOTRANSF ERASE [ENZYMATIC ACTIVITY/VO LUME] IN SERUM OR PLASMA 40 U/L 8 - 40 09/09 Specimen Type: PLASMA No comment entered. Ordering Provider: DRAGAN MYERS R Report Released Date/Time: Sep 01, 2024 11:27 AM Reporting Lab: [place] [facility] [address] [place] [address] Performing Lab: [place] [facility] [address] [place] [address] [place] [facility] COMPREHEN SIVE METABOLIC PANEL GLOMERULAR FILTRATION RATE/1.73 SQ M.PREDICTED [VOLUME RATE/AREA] IN SERUM, PLASMA OR BLOOD BY CREATININE- BASED FORMULA (CKD-EPI 2020) 91 09/09 Specimen Type: PLASMA No comment entered. Ordering Provider: DRAGAN MYERS Report Released Date/Time: Sep 01, 2024 11:27 AM Reporting Lab: [place] [facility] [address] [place] [address] Performing Lab: [place] [facility] [address] [place] [address] [facility] [place] [facility] Vital Signs Combined list of inpatient and outpatient Vital Signs from Department of Defense and [employer] Affairs, ranging from 12 months to all on record, depending upon the facility. Vital Sign Value Date Comments Source SYSTOLIC BLOOD PRESSURE 127 11/28/2024 08:32:33 [facility] [place] [facility] DIASTOLIC BLOOD PRESSURE 88 11/28/2024 08:32:33 [facility] PULSE OXIMETRY 97 11/28/2024 08:32:33 [facility] WEIGHT 223 11/28/2024 08:32:33 [facility] BMI 34 kg/m2 11/28/2024 08:32:33 [facility] TEMPERATURE 98.5 11/28/2024 08:32:33 [facility] PULSE 80 11/28/2024 08:32:33 [place] RESPIRATION 18 11/28/2024 08:32:33 [place] SYSTOLIC BLOOD PRESSURE 123 11/15/2024 15:47:25 [facility] DIASTOLIC BLOOD PRESSURE 87 11/15/2024 15:47:25 [place] PULSE OXIMETRY 97 11/15/2024 15:47:25 [facility] TEMPERATURE 98.4 11/15/2024 15:47:25 [place] PULSE 105 11/15/2024 15:47:25 [place] RESPIRATION 18 11/15/2024 15:47:25 [facility] SYSTOLIC BLOOD PRESSURE 138 10/03/2024 08:37:23 [facility] DIASTOLIC BLOOD PRESSURE 89 10/03/2024 08:37:23 [place] PULSE OXIMETRY 96 10/03/2024 08:37:23 [facility] WEIGHT 225.6 10/03/2024 08:37:23 [facility] BMI 34 kg/m2 10/03/2024 08:37:23 [facility] TEMPERATURE 98.2 10/03/2024 08:37:23 [place] [facility] PULSE 98 10/03/2024 08:37:23 [place] [facility] RESPIRATION 18 10/03/2024 08:37:23 [place] [facility] SYSTOLIC BLOOD PRESSURE 124 09/01/2024 11:20:00 [place] [facility] DIASTOLIC BLOOD PRESSURE 81 09/01/2024 11:20:00 [place] [facility] PULSE OXIMETRY 97 09/01/2024 11:20:00 [facility] WEIGHT 225.8 09/01/2024 11:20:00 [place] [facility] BMI 34 kg/m2 09/01/2024 11:20:00 [place] [facility] HEIGHT 68.0 09/01/2024 11:20:00 [place] [facility] PULSE 92 09/01/2024 11[facility]20:00 [place] [facility] RESPIRATION 16 09/01/2024 11:20:00 [place] [facility] SYSTOLIC BLOOD PRESSURE 127 06/17/2024 16:15:16 [place] [facility] DIASTOLIC BLOOD PRESSURE 89 06/17/2024 16:15:16 [place] [facility] PULSE OXIMETRY 96 06/17/2024 16:15:16 [facility] WEIGHT 223.4 06/17/2024 16:15:16 [place] [facility] BMI 34 kg/m2 06/17/2024 16:15:16 [place] [facility] TEMPERATURE 98.1 06/17/2024 16:15:16 [place] [facility] PULSE 85 06/17/2024 16:15:16 [place] [facility] RESPIRATION 18 06/17/2024 16:15:16 [place] [facility] Encounters Combined list of: 1) Encounters from Department of Veterans Affairs facilities going backup to the last 18 months, not all [place] inpatient encounters are included; 2) Encounters from the Department of Defense facilities going backup to 280 months. Location Location Details Encounter Type Encounter Number Reason For Visit Attending Provider ADM Date DC Date Status Disposition Source MARLO Eddy([facility] ) OUTPATIENT [id number] IVETTE PORTILLO 01/15 Released [place] Limitations [place] MARLO Eddy([facility]) OUTPATIENT [id number] allergi c reactio n LALA BRIDGES 02/14 Released w/o Limitations Sim s MARLO Islas([facility]) Theater Facility OUTPATIENT [id number] 07/30 Released w/o Limitations [facility] OUTPATIENT [id number] 08/04 Released with Work/Duty Limitations [facility] OUTPATIENT [id number] 08/05 Sick at Home/Quarter s [facility] OUTPATIENT [id number] 08/06 Released w/o Limitations [facility] OUTPATIENT [id number] 08/29 Released w/o Limitations [facility] Facility OUTPATIENT [id number] 09/18 Released with Work/Duty Limitations [facility] OUTPATIENT [id number] 10/29 Released w/o Limitations [facility] OUTPATIENT [id number] 11/05 Released with Work/Duty Limitations [facility] Facility OUTPATIENT [id number] 11/08 Released with Work/Duty Limitations [facility] Theater Facility OUTPATIENT [id number] 11/11 Released w/o Limitations [facility] Facility OUTPATIENT [id number] 11/13 Released w/o Limitations [facility] OUTPATIENT [id number] 11/21 Released w/o Limitations [facility] OUTPATIENT [id number] 11/25 Released w/o Limitations [facility] Theater Facility OUTPATIENT [id number] 11/25 Released w/o Limitations [facility] OUTPATIENT [id number] 11/28 Released w/o Limitations Theater Facilit y MARLO Eddy([facility]) OUTPATIENT [id number] lower rt abd pain FELIPA VILLEGAS María 02/02 Released with Work/Duty Limitations [facility] [employer] [place] [facility] [employer] [place] [id number] BRANDYN FARRELL 05/18 Released w/o Limitations [place] [facility] [employer] [facility] [employer] [id number] BRANDYN FARRELL 05/28 Released w/o Limitations [place] [facility] [employer] [facility] [employer] [id number] BRANDYN FARRELL 06/29 Released w/o Limitations [place] [facility] [employer] [facility] [employer] OUTPATIENT [id number] Right Knee Pain LIZBET MOORE 06/30 Released with Work/Duty Limitations Sim [place] [facility] [employer] [facility] [employer]) [facility] [id number] [facility] VINNY MCGEE 07/02 Released w/o Limitations [place] [facility] [employer] [facility] [employer]) [facility]PATIENT [id number] city [facility] ELEUTERIO REEVES 07/02 Released w/o Limitations [place] [facility] [employer] [facility] [employer]) [place] [id number] NO ALEJANDRINA ALBARRAN CHAD N 07/02 Released w/o Limitations [place] [facility] [employer] [facility] [employer] OUTPATIENT [id number] MEGAN Simpson 07/02 Released w/o Limitations [place] [facility] [employer] [facility] [employer] TELE CONSULT [phone] Command consult ation JAMIBRANDYN 07/14 [place] [id number] FARRELL BRANDYN Wiliam 07/16 [place] Limitations [place] [id number] RIGHT KNEE PAIN LALA BRIDGES 07/23 Released with Work/Duty Limitations [place] OUTPATIENT [id number] Per Dr Valerio ybarra, eye exam ISABEL WEAVER 07/23 [place]ased [place] Limitations [place] [facility] Outpatient Encounter [id number] [id number] 07/21 [facility] Outpatient Encounter [id number] [id number] 07/21 [facility] OFF/OP EST OCTOBER X REQ PHY/QHP [id number] [id number] Diagnos is: ICD-10- CM R07.9 Chest pain, unspeci fied An WEAVER 07/21 [facility] Outpatient Encounter [id number] [id number] ANA GALINDO 07/27 [facility] Outpatient Encounter [id number] [id number] 09/02 [facility] Outpatient Encounter [id number] [id number] 2 09/13 [facility] OFFICE O/P EST LOW 20 MIN [id number] [id number] Diagnos is: ICD-10- CM Z00.00 Encntr for general adult medical exam w/o abnorma l finding s JACINTA MYERS R 09/14 [facility] Outpatient Encounter [id number] [id number] 4 09/15 [facility] Outpatient Encounter [id number] [id number] 09/17 [facility] Outpatient Encounter [id number] [id number] 09/20 [facility] Outpatient Encounter [id number] [id number] 09/21 [facility] Outpatient Encounter [id number] [id number] 10/04 [facility] Outpatient Encounter [id number] [id number] 2 10/05 [facility] Outpatient Encounter [id number] [id number] 10/05 [facility] OFFICE O/P EST LOW 20 MIN [id number] [id number] Diagnos is: ICD-10- CM S10.86X A Insect bite of other specifi ed part of neck, init encntr MARIAJOSE CORRIGAN 10/06 [facility] Outpatient Encounter [id number] [id number] 3 10/21 [facility] Outpatient Encounter [id number] [id number] 10/21 [facility] QNHP OL DIG ASSMT&MGMT 5-10 [id number] [id number] Diagnos is: ICD-10- CM B35.1 Tinea unguium JACKIE RODRÍGUEZ V 10/22 [facility] Outpatient Encounter [id number] [id number] 5 10/27 [facility] Outpatient Encounter [id number] [id number] 11/01 [facility] Outpatient Encounter [id number] [id number] 9 12/07 [facility] OFF/OP EST OCTOBER X REQ PHY/QHP [id number] [id number] Diagnos is: ICD-10- CM G43.D1 Abdomin al migrain e, intract able KEVENYOKASTA BLANCA R 12/07 [facility] Outpatient Encounter [id number] [id number] RADHA MILLS SON E 12/09 [facility] Outpatient Encounter [id number] [id number] 12/20 [facility] Outpatient Encounter 03955-8.58 [id number] 12/22 [facility] OFF/OP EST OCTOBER X REQ PHY/QHP [id number] [id number] Diagnos is: ICD-10- CM Z23 Encount er for immuniz ERIK Clarke 12/22 [facility] Outpatient Encounter [id number] [id number] 12/27 [facility] [place] Outpatient Encounter [id number] [id number] 01/03 [place] [facility] OFF/OP EST MAY X REQ PHY/QHP [id number] [id number] Diagnos is: ICD-10- CM J02.9 Acute pharyng itis, unspeci fiAn Dukes 01/05 [facility] OFF/OP EST OCTOBER X REQ PHY/QHP [id number] [id number] Diagnos is: ICD-10- CM J02.9 Acute pharyng itis, unspeci An Pena 01/07 [facility] Outpatient Encounter [id number] [id number] ANA GALINDO 01/11 [facility] O/P EST LOW 20 MIN [id number] [id number] Diagnos is: ICD-10- CM J06.9 Acute upper respira tory infecti on, unspeci fied JACINTA MYERS R 01/13 [facility] Outpatient Encounter 38424-2.58 [id number] 01/27 [facility] Outpatient Encounter [id number] [id number] 01/27 [facility] IMMUNIZATI ON ADMIN [id number] [id number] Diagnos is: ICD-10- CM Z23 Encount er for immuniz CHRISTIANO LeyvaElijah Herrera 01/27 [facility] [place] [facility] QNHP OL DIG ASSMT&MGMT 5-10 [id number] [id number] Diagnos is: ICD-10- CM E66.9 Obesity , unspeci fianish RODRÍGUEZ,JACKIE V 01/28 [facility] Encounter [id number] [id number] An WEAVER 01/28 [facility] QNHP OL DIG ASSMT&MGMT 5-10 [id number] [id number] Diagnos is: ICD-10- CM E66.9 Obesity , unspeci fianish RODRÍGUEZ,JACKIE V 02/11 [facility] Outpatient Encounter [id number] [id number] 1 02/17 [facility] Outpatient Encounter [id number] [id number] JACINTA MYERS R 02/22 [facility] OFFICE O/P EST MOD 30 MIN [id number] [id number] Diagnos is: ICD-10- CM F33.9 Major depress riana disorde r, recurre nt, unspeci fied JACINTA MYERS R 02/22 [facility] Outpatient Encounter [id number] [id number] 1 02/23 [facility] Outpatient Encounter [id number] [id number] 02/24 [facility] Outpatient Encounter 50812-2.65 [id number] 03/24 [facility] Outpatient Encounter [id number] [id number] 8 03/25 [facility] Outpatient Encounter [id number] [id number] 1 03/31 [facility] OFFICE O/P NEW [place] 60 MIN 29192-8.58 [id number] Diagnos is: ICD-10- CM G43.719 Chronic migrain e w/o aura, intract able, w/o stat migr LEANN,MUHAM MAD PRADEEP 04/01 [facility] [place] [facility] Outpatient Encounter [id number]. [id number] 04/01 [place] [facility] Outpatient Encounter [id number]. [id number] 04/06 [facility] QNHP OL DIG ASSMT&MGMT 5-10 [id number] Diagnos is: ICD-10- CM G43.709 Chronic migrain e w/o aura, not intract able, w/o stat migr MARCOS,JACKIE V 04/06 [place] [facility] IMMUNIZATI ON ADMIN [id number] Diagnos is: ICD-10- CM Z23 Encount er for immuniz LISETH Leyva 04/06 [facility] Outpatient Encounter [id number] 1 04/14 [facility] Outpatient Encounter [id number] 5 04/26 [facility] [place] [id number] Diagnos is: ICD-10- CM K02.52 Dental caries on pit and fissure surfc penetra t into dentin MEGAN RODRIGUEZ 04/26 [place] [facility] OFF/OP EST OCTOBER X REQ PHY/QHP [id number] [id number] Diagnos is: ICD-10- CM R05.1 Acute cough YOKASTA BACA R 05/04 [facility] Outpatient Encounter [id number] [id number] 05/04 [facility] Outpatient Encounter [id number] [id number] 05/09 [facility] Outpatient Encounter [id number] [id number] 05/10 [facility] Outpatient Encounter [id number] [id number] 2 06/10 [facility] OFF/OP EST MAY X REQ PHY/QHP [id number] [id number] Diagnos is: ICD-10- CM R52 Pain, unspeci fied An WEAVER 06/17 [facility] FEE [id number] [id number] Diagnos is: ICD-10- CM R10.13 Epigast carmelo pain CRAFFORD,C HERYL M 06/17 [facility] OFFICE O/P EST LOW 20 MIN [id number] [id number] Diagnos is: ICD-10- CM K58.0 Irritab le bowel syndrom e with diarrhe a CRAFFORD,C HERYL M 06/17 [facility] Outpatient Encounter [id number] [id number] 07/01 [facility] OFF/OP EST MAY X REQ PHY/QHP [id number] [id number] Diagnos is: ICD-10- CM J01.80 Other acute sinusit is An WEAVER 07/19 [facility] Outpatient Encounter 75445-3.65 [id number] 2 07/22 [facility] OFF/OP EST MAY X REQ PHY/QHP 94305-7.65 [id number] Diagnos is: ICD-10- CM H10.31 Unspeci fied acute conjunc tivitis , right eye An WEAVER 07/25 [facility] Outpatient Encounter [id number] [id number] JACINTA MYERS R 09/01 [facility] OFFICE O/P EST MOD 30 MIN [id number] [id number] Diagnos is: ICD-10- CM Z00.00 Encntr for general adult medical exam w/o abnorma l finding s JACINTA MYERS THERINE R 09/01 [facility] Outpatient Encounter 61668-9.65 [id number] An WEAVER 09/12 [facility] Outpatient Encounter 69389-5.65 [id number] 8 09/12 [facility] Outpatient Encounter 85943-8.65 [id number] An WEAVER 09/13 [facility] Outpatient Encounter 55941-3.65 [id number] An WEAVER 09/14 [facility] Outpatient Encounter 22400-0.65 [id number] 09/15 [facility] Outpatient Encounter [id number] [id number] 09/29 [facility] Outpatient Encounter [id number] [id number] 5 10/03 [facility] OFF/OP EST MAY X REQ PHY/QHP 53733-4.65 [id number] Diagnos is: ICD-10- CM J02.9 Acute pharyng itis, unspeci fied An WEAVER 10/03 [facility] OFFICE O/P EST MOD 30 MIN [id number] [id number] Diagnos is: ICD-10- CM J02.9 Acute pharyng itis, unspeci fied RAYMUNDO BOSS G 10/03 [facility] Outpatient Encounter 73882-8.65 [id number] 10/18 [facility] Outpatient Encounter 10175-1.65 [id number] 7 10/27 [facility] Outpatient Encounter 63055-3.65 [id number] 8 10/28 [facility] Outpatient Encounter 51695-8.65 [id number] 10/31 [facility] Outpatient Encounter 20373-4.65 [id number] 1 11/02 [facility] Outpatient Encounter 92406-1.65 [id number] 3 ANA GALINDO 11/09 [facility] Outpatient Encounter 25245-1.65 [id number] 1 11/10 [facility] Outpatient Encounter 66003-1.65 [id number] An WEAVER LAYNE POONAM 11/15 [facility] O[facility]P EST MOD 30 MIN [id number] [id number] Diagnos is: ICD-10- CM R53.83 Other fatigue JACINTA MYERS 11/15 [facility] [id number] [id number] 2 11/15 [facility] En[facility] 32320-6.65 [id number] 2 11/16 [facility] En[facility] [id number] [id number] 11/16 [facility]counter [id number] [id number] 11/17 [facility] Outpatient [facility]counter 68819-7.65 [id number] 7 11/21 [facility] Outpatient Encounter [id number] [id number] 5 11/23 [facility] Encounter [id number] [id number] 2 11/23 [facility] Outpatient Encounter [id number] [id number] 2 11/24 [facility]OP EST MAY X REQ PHY/QHP [id number] [id number] Diagnos is: ICD-10- CM M25.512 Pain in left shoulde r An WEAVER 11/28 [facility] Outpatient Encounter 55425-8.65 [id number] JACINTA MYERSINE R 11/28 [facility] OFFICE O/P EST MOD 30 MIN [id number] [id number] Diagnos is: ICD-10- CM M25.512 Pain in left shoulde r PIERRE CORLEY ER E III 11/28 [facility] Outpatient Encounter 98837-7.65 [id number] An WEAVER 11/29 [facility] Outpatient Encounter [id number] [id number] 2 12/08 [facility] [place] [facility] NQHP OL DIG ASSMT&MGMT 21+ 95133-8.65 [id number] Diagnos is: ICD-10- CM F33.2 Major depress v disorde r, recurre nt severe w/o psych feature s GREY SPENCE R 12/09 [place] [facility] [place] [facility] MTMS BY PHARM PAYROLL ACCOUNTANT 15 MIN 21988-8.65 [id number] Diagnos is: ICD-10- CM F33.9 Major depress riana disorde r, recurre nt, unspeci fied JACKIE RODRÍGUEZ V 12/14 [place] [facility] [place] [facility] Outpatient Encounter [id number] [id number] JACKIE RODRÍGUEZ V 12/28 [place] [facility] THERAPEUTI C EXERCISES [id number] [id number] Diagnos is: ICD-10- CM M25.512 Pain in left shoulde r SILVANO QUINTERO BELLA A 01/02 [facility] Outpatient Encounter 80888-6.65 [id number] 5 AMINAH ANDREWS ICA D 01/09 [facility] Outpatient Encounter [id number] [id number] LISETH FUENTES 01/11 [facility] MTMS BY PHARM PAYROLL ACCOUNTANT 15 MIN 39532-9.65 [id number] Diagnos is: ICD-10- CM F33.2 Major depress v disorde r, recurre nt severe w/o psych feature s JACKIE RODRÍGUEZ V 01/12 [facility] Outpatient Encounter [id number] [id number] 1 An WEAVER 01/16 [facility] Outpatient Encounter [id number] [id number] AMINAH ANDREWS ICA D 01/17 [facility] Procedures Combined list of: 1) Procedures from Department of [facility] Affairs facilities going back up to thelast 18 months, not all [place] non-surgical procedures are included; 2) All procedures from the Department of Defense facilities. Procedure Procedure Type Code Date Perfomer Comments Sourc e INDIVIDUAL PSYCHOTHER,INTERACT,PLAY EQUIP,PHYS DEVICES,GENERAL FARM MANAGER/OTH MECHANISMS OF NON-VERBAL COMM, IN AN OFFICE/OUTPATIENT FACIL,APPROX 20-30 MIN [id number] W THE PAT;W MED EVAL & MGT SER 007 [facility] FITTING OF SPECTACLES, EXCEPT FOR APHAKIA; MONOFOCAL 007 [facility] PREPARATION OF REPORT OF PATIENT'S PSYCHIATRIC STATUS, HISTORY, TREATMENT, OR PROGRESS (OTHER THAN FOR LEGAL OR CONSULTATIVE PURPOSES) FOR OTHER INDIVIDUALS, AGENCIES, OR INSURANCE CARRIERS 007 [facility] PSYCHIATRIC DIAGNOSTIC INTERVIEW EXAMINATION 01 DoD AUDIOMETRIC TESTING OF GROUPS DoD SERIAL TONOMETRY (SEP PROC) WITH MULT JÚNIOR OF INTRAOCULAR PRESSURE OVER EXTENDED TIME PERIOD W/ INTERP & REPORT, SAME DAY (EG, DIURNAL CURVE OR MEDICAL TX OF ACUTE ELEVATION OF INTRAOCULAR PRESSURE) DoD SCREENING TEST OF VISUAL ACUITY, QUANTITATIVE, BILATERAL DoD INDIVIDUAL PSYCHOTHERAPY, INSIGHT ORIENTED, BEHAVIOR MODIFYING AND/OR SUPPORTIVE, IN AN OFFICE OR OUTPATIENT FACILITY, APPROXIMATELY 45 TO 50 MINUTES [id number] W THE PATIENT; W MED EVAL & MGT SER DoD INDIVIDUAL PSYCHOTHERAPY, INSIGHT ORIENTED, BEHAVIOR MODIFYING AND/OR SUPPORTIVE, IN AN OFFICE OR OUTPATIENT FACILITY, APPROXIMATELY 45 TO 50 MINUTES [id number] W THE PATIENT; W MED EVAL & MGT SER DoD PSYCHIATRIC DIAGNOSTIC INTERVIEW EXAMINATION DoD INDIVIDUAL PSYCHOTHERAPY, INSIGHT ORIENTED, BEHAVIOR MODIFYING AND/OR SUPPORTIVE, IN AN OFFICE OR OUTPATIENT FACILITY, APPROXIMATELY 45 TO 50 MINUTES [id number] WITH THE PATIENT DoD ACOUSTIC HEART SOUND RECORDING AND COMPUTER ANALYSIS; WITH INTERPRETATION AND REPORT DoD HEALTH&BEHAV ASSESSMENT (EG, HEALTH-FOC CLINICAL INTERVIEW, BEHAVIORAL OBSERVATIONS, PSYCHOPHYSICOLOGICAL MONITOR, HEALTH-ORIENT QUESTIONNAIRES), EA 15 MIN [id number] W THE PATIENT; INIT ASSESSMENT DoD COLLECTION OF VENOUS BLOOD BY VENIPUNCTURE DoD INJECTION, METOCLOPRAMIDE HCL, UP TO 10 MG DoD BLOOD PRESSURE MEASURED (CKD)(DM) DoD UNLISTED VACCINE/TOXOID 02/21 DoD INJECTION, ADRENALIN, EPINEPHRINE, UP TO 1 ML AMPULE DoD COLLECTION OF VENOUS BLOOD BY VENIPUNCTURE DoD SKIN TEST; TUBERCULOSIS, JOSUÉ TEST 005 DoD INFUSION, NORMAL SALINE SOLUTION , 1000 CC DoD AUDIOMETRIC TESTING OF GROUPS DoD AUDIOMETRIC TESTING OF GROUPS 004 DoD DETERMINATION OF REFRACTIVE STATE DoD Psych Ther Indiv Interact Appr 20-30 Min W/ Med Eval Manage Psych Ther Indiv Interact Appr 20-30 Min W/ Med Eval Manage [id number] OZZY NOE Y [facility] Spectacles Services Fitting Monofocals (Not For Aphakia) Spectacles Services Fitting Monofocals (Not For Aphakia) [id number] ISABEL WEAVER [facility] Determination Of Refractive State Determination Of Refractive State [id number] ISABEL WEAVER [facility] Ophthalmological Prior Patient Start Comprehensive Care Ophthalmological Prior Patient Start Comprehensive Care [id number] ISABEL WEAVER [facility] Psychiatric Therapy Preparation of Psychiatric Status Report Psychiatric Therapy Preparation of Psychiatric Status Report [id number] BRANDYN FARRELL [facility] Psychiatric Evaluation Comprehensive Examination Psychiatric Evaluation Comprehensive Examination [id number] BRANDYN FARRELL [facility] Psychiatric Evaluation Comprehensive Examination Psychiatric Evaluation Comprehensive Examination [id number] MERLYN OTTO [facility] Screening Test Of Visual Acuity, Quantitative, Bilateral Screening Test Of Visual Acuity, Quantitative, Bilateral [id number] VINNY MCGEE [facility] Patient education, not otherwise cla ified, non-physician provider, group, per se ion 007 NIRMALA LOCK [facility] [employer] Testing Audiometry Grou p Testing [id number] NIRMALA LOCK [facility] Tonometry Tonometry 14333 007 CINDY MOORE [facility] Psychiat Therapy Indiv Appr 45-50 Min W/ Med Eval Managemt Psychiat Therapy Indiv Appr 45-50 Min W/ Med Eval Managemt [id number] BRANDYN FARRELL [facility] Psychiat Therapy Indiv Appr 45-50 Min W/ Med Eval Managemt Psychiat Therapy Indiv Appr 45-50 Min W/ Med Eval Managemt [id number] 006 BRANDYN FARRELL [facility] Psychiatric Therapy Individual Approximately 45-50 Minutes Psychiatric Therapy Individual Approximately 45-50 Minutes [id number] HORTENSIA DOYLE [facility] Psychiatric Evaluation Comprehensive Examination Psychiatric Evaluation Comprehensive Examination [id number] 006 BRANDYN FARRELL [facility] Social History Combined list of available smoking, tobacco, and other social history from Department of Defense and Veterans Affairs facilities. Social History Type Response Date Comment Sourc e Tobacco smoking status IAIS VA-TOBACCO NEVER USED 09/15/2023 [facility] History of tobacco use LIFETIME NON-SMOKER 03/21/2022 ELAINE [place]AR[place] [facility] History of tobacco use VA-TOBACCO NEVER USED 05/10/2021 [facility] History of tobacco use VA-TOBACCO NEVER USED 02/13/2020 [facility] History of tobacco use VA-TOBACCO NEVER USED 09/21/2018 [facility] History of tobacco use LIFETIME NON-USER OF TOBACCO 01/26/[facility] History of tobacco use LIFETIME NON-USER OF TOBACCO 08/08/2008 ELAINE [place]AR[place] [facility] History of tobacco use LIFETIME NON-USER OF TOBACCO 06/21/2007 ELAINE ZARAGOZA [facility] History of tobacco use LIFETIME NON-USER OF TOBACCO 06/02/2007 per record [facility] This section is an empty social history section. [facility] Plan of Care List of future care activities from Department of Veterans Affairs facilities. Additional future care activities may be listed in the Assessment and Plan section. Date/Time Care Activity Care Activity Detail Facili ty 01/30/2025 AMBULATORY - MEDICINE AMBULATORY - MEDICI NE [facility]
--- OUTSIDE RECORDS SUMMARY | 2025-01-17 18:15 | XMS_ITS | Encounter Summary ---
Author Organization [facility] Address [address] [place] [address] Care Team Providers Care Conduit Reamer Operator Name Role Phone Unavailable Primary Care Provider Unavailabl e Encounter Details Date Type Department Care Team (Late st Contact Info) Description 01/09/2020 Ancillary Orders [facility] Orthopedics - Orthopedic [facility] [address] [place] [id number] [facility], External Provider [address] [place], [place] [id number] Pain Social History Tobacco Use Types Packs/Day Years Used Date Smoking Tobacco: Never Assessed Sex and Gender Information Value Date Recorded Sex Assigned at Not on file Legal Sex Male 8:44 AM CDT Gender Identity Not on file Sexual Orientation Not on file documented as of this encounter Plan of Treatment Not on file documented as of this encounter Results * XR PRIOR STUDY (10/24/2019 12:05 PM CDT) Narrative 01/09/2020 9:06 AM CDT This exam was auto finalized to allow images to be scanned to PACS. us External Provider [facility] DIAGNOSTIC IMAGING ORDERAB LES Final Result * XR PRIOR STUDY (10/24/2019 12:00 PM CDT) Narrative 01/09/2020 9:06 AM CDT This exam was auto finalized to allow images to be scanned to PACS. us External Provider [facility] DIAGNOSTIC IMAGING ORDERAB LES Final Result documented in this encounter Visit Diagnoses Diagnosis Pain Generalized pain Pain Generalized pain Pain Generalized pain documented in this encounter
--- OUTSIDE RECORDS SUMMARY | 2025-01-17 18:15 | XMS_ITS | Data Portability ---
Author Organization [facility], Tom [facility] Address [address] [place] [address] Care Team Providers Care Order Takers Supervisor Name Role Phone MARILY MYERS Primary Care Provider Assessment Encounter Date Assessment Date Assessment LastModified by Organization Details LastModified Time 10/31/2024 10/31/2024 I offered flu test and covid test today. pt declines. Not available 10/31/2024 10:18:36 Plan of Treatment Reminders Order Date Submit Date Provider Last Modified By Organization Details Last Modified Time Details Appointments None recorded. Lab rapid strep group A, throat 2023 024 [email or web address] [facility] [address] [place] [address], [phone], 4 11:02:27 Referral None recorded. Procedures None recorded. Surgeries None recorded. Imaging None recorded. Medication Orders azithromyci n 250 mg tablet 2024 025 [facility], [address], [place], [address], 5 10:18:14 prednisone 20 mg tablet 2024 025 [facility], [address], [place], [address], 5 05:01:12 amoxicillin 500 mg tablet 2023 024 [email or web address] 276 [facility], [address], [place], [address], 5 09:45:57 Patient TargetsNo targets recorded. Patient Instructions Encounter Date Encounter Id Patient Instructions Last Modified By Organization Details Last Modified Time 09/26/2023 [id number] Increase fluids and take all of antibiotics. May rinse mouth several times a day with a good mouth wash [email or web address] Not available 09/26/2023 14:01:32 Reason for Referral None Reported. Results Created Date Observation Date Name Description Value Unit Range Abnormal Flag Note LastModifiedBy Organization Detail LastModifiedTime 09/26/19 24 09/26/2023 rapid strep group A, throa t Strep positi ve Not Available [facility]) [address] [place], [address], 09/26/2023 10:38:04 Result Notes None recorded. Problems Name Problem SNOMED Code Status Onset Date Resolution Date Notes Provider Name and Address Organization Details Recorded Time Anxiety state 888862793 Completed 201703/27/2018 Anxiety - Status is Inactive ; 03/27/20 18 1:58PM by Sally Verde CMT, Ana on/Adden dum; Promoted ; acuity set as *; Not Available [facility] 3 03:10:54 Tear of meniscus of knee [id number] Completed 201808/05/2018 Torn meniscus - Status is Inactive ; right knee; 08/05/19 19 8:01AM by Sally Verde CMT, Ana on/Adden dum; Promoted ; acuity set as *; Not Available [facility] 3 03:10:54 Obsessiv e-compul sive disorder 199340768 Active 2021 OCD - Status is Inactive ; 03/27/20 18 1:58PM by Sally Verde CMT, Ben[place] on/Adden dum; Promoted ; acuity set as *; ; Start Date : 03/27/20 18 OCD (OBSESSI VE COMPULSI VE DISORDER ); 10/18/19 22 9:05AM by Zaida Michel LPN, Office Visit; Promoted ; acuity set as *; Not Available [facility] 3 03:10:54 Anxiety 10845947 Active 2021 ANXIETY; 10/18/19 22 9:05AM by Zaida Michel LPN, Office Visit; Promoted ; acuity set as *; Not Available [facility] 3 03:10:54 Problem Notes None recorded. Procedures Surgical History Date Name Laterality Status Provider Name and Address Organization Details Recorded Time repair of joint of right knee completed [facility] 09/26/2023 10:29:15 repair of joint of left knee completed [facility] 09/26/2023 10:29:24 extraction of wisdom tooth completed [facility] 09/26/2023 10:29:32 Imaging Results None recorded. Procedure Notes None recorded. Medical Equipment None Reported. Allergies Allergen ID Allergen Name Allergen Category Reaction Reaction Severity Criticality Documentation Date Start Date Code Code System Note Provider Name and Address Organization Details Recorded Time 62996 Vaccine product containin g only [place] a enterica subspecie s enterica serovar Typhi antigen (medicina l product) medicatio n anaphylax is severe low 01/17/2023 36168 72385 00 SNOMED [facility] 4 10:26:21 40252 gabapenti n medicatio n anaphylax is headache severe severe low 01/17/2023 32359 RxNorm [facility] 4 10:24:55 87471 Wellbutri n medicatio n other severe high 01/17/2023 94191 RxNorm repor ts becom ing angry on medic ation s [facility] 4 10:25:55 40048 Paxil medicatio n other severe low 01/17/2023 15305 8 RxNorm Repor ts becom ing angry on the medic ation Dalia Pliler [facility] 4 10:25:26 69910 Substance with sulfonami de structure and antibacte rial mechanism of action (substanc e) medicatio n anaphylax is severe low 01/17/2023 64424 8003 SNOMED Daliacindi Wiseamn [facility] LTom 4 10:26:09 26436 bupropion hydrochlo ride medicatio n other moderate high 01/17/202363414 4 RxNorm Repor ts makin g patie nt very [facility] LN[facility] 4 10:24:40 24685 clindamyc in hydrochlo ride medicatio n Not available Not available Not available 01/17/2023 96389 RxNorm [facility] 4 10:24:49 Medications Name Sig Start Date Stop Date Status Note LastModified by Organization Details LastModified Time amoxicill in 500 mg capsule TAKE 1 CAPSULE BY MOUTH EVERY 8 HOURS FOR 10 DAYS 10/31 completed Not Available Not Available Not Available azithromy omar 250 mg tablet TAKE 2 TABLETS BY MOUTH ON DAY 1, AND THEN TAKE 1 TABLET BY MOUTH ONCE A DAY ON DAY 2 THROUGH DAY 5 active Not Available Not Available No t Available Claritin 10 mg tablet daily 09/25 completed Not Available Not Available Not Available prednison e 20 mg tablet Take 1 tablet every day by oral route in the morning for 7 days. 11/14 completed Not Available Not Available Not Available Synthroid 100 mcg tablet active Not Available Not Available Not Available dexametha sone 6 mg tablet TAKE 1 TABLET BY MOUTH ONCE DAILY FOR 5 DAYS active Not Available Not Available No t Available Zyrtec 10 mg tablet daily 09/25 completed 0; Recorded 10/18/19 22 9:07AM by Zaida Michel LPN, Office Visit; Not Available Not Available Not Available acyclovir 400 mg tablet TAKE 1 TABLET BY MOUTH ONCE DAILY NEEDED active Not Available Not Available No t Available amoxicill in 500 mg tablet Take 1 tablet every 8 hours by oral route for 10 days. 10/31 completed Not Available Not Available Not Available pantopraz ole 20 mg tablet,de layed release TAKE 1 TABLET BY MOUTH ONCE DAILY active Not Available Not Available No t Available famotidin e 20 mg tablet TAKE 1 TABLET BY MOUTH AT BEDTIME active Not Available Not Available No t Available ciproflox acin 0.3 % eye drops INSTILL ONE DROP IN THE AFFECTED EYE TWICE DAILY FOR 7 DAYS active Not Available Not Available No t Available cephalexi n 500 mg capsule TAKE 1 CAPSULE BY MOUTH THREE TIMES DAILY FOR 7 DAYS active Not Available Not Available No t Available albendazo le 200 mg tablet 09/25 completed Not Available Not Available Not Available Synthroid 75 mcg tablet 09/25 completed Not Available Not Available Not Available lisinopri l 10 mg-hydroc hlorothia zide 12.5 mg tablet TAKE 1 TABLET BY MOUTH ONCE DAILY 09/25 completed Not Available Not Available Not Available ondansetr on 4 mg disintegr ating tablet DISSOLVE 1 TABLET IN MOUTH EVERY 6 HOURS FOR 3 DAYS active Not Available Not Available No t Available cefdinir 300 mg capsule TAKE 1 CAPSULE BY MOUTH TWICE DAILY FOR 7 DAYS active Not Available Not Available No t Available fluticaso ne propionat e 50 mcg/actua tion nasal spray,luke pension 09/25 completed Not Available Not Available Not Available Clomid 50 mg tablet 10/31 completed Not Available Not Available Not Available amoxicill in 875 mg-potass ium clavulana te 125 mg tablet TAKE 1 TABLET BY MOUTH TWICE DAILY FOR 7 DAYS active Not Available Not Available No t Available Xanax active Not Available Not Availa ble Not Available Vitamin D3 daily 09/25 completed 0; Recorded 10/18/19 22 9:08AM by Zaida Michel LPN, Office Visit; Not Available Not Available Not Available [facility] Levothyro xine Sodium daily 09/25 completed 0; Recorded 10/18/19 22 9:08AM by Zaida Michel LPN, Office Visit; Not Available Not Available Not Available Concerta daily 09/25 completed Not Available Not Available Not Available Aller-Eas e 180 mg tablet 09/25 completed Not Available Not Available Not Available Jelena Allergy Take 1 tablet daily. active Not Available Not Available No t Available Qsymia 11.25 mg-69 mg capsule, extended release TAKE 1 CAPSULE BY MOUTH ONCE DAILY FOR 30 DAYS active Not Available Not Available No t Available Qsymia 3.75 mg-23 mg capsule, extended release TAKE 1 CAPSULE BY MOUTH ONCE DAILY FOR 14 DAYS 09/25 completed Not Available Not Available Not Available Qsymia 15 mg-92 mg capsule, extended release TAKE 1 CAPSULE BY MOUTH ONCE DAILY active Not Available Not Available No t Available Qsymia 7.5 mg-46 mg capsule, extended release TAKE 1 CAPSULE BY MOUTH ONCE DAILY active Not Available Not Available No t Available Victoza 3-Vinnie 0.6 mg/0.1 mL (18 mg/3 mL) subcutane ous pen injector inject 0.6 MG daily FOR ONE week, THEN 1.2 MG daily FOR ONE week, THEN 1.8 MG daily 09/25 completed Not Available Not Available Not Available vit D3 50 mcg-levom efolate calcium 15 mg-zinc 25 mg-theani ne capsule Take by oral route. active Not Available Not Available No t Available Vitals Date Recorded Body height Body mass index (BMI) Body weight Oxygen saturation Oxygen saturation in Arterial blood by Pulse oximetry Heart rate Respiratory rate Body temperature Systolic And Diastolic Provider Name and Address Organization Details Last Updated DateTime 4 172.72 cm 36.2 kg/m2 023988. 7 g 96 % 96 % 84 /min 16 /min 97.8 [degF] 116/84 mm[Hg] Dalia Wiseman [facility] 4 10:37:29 Date Recorded Body weight Body mass index (BMI) Body height Body temperature Heart rate Oxygen saturation Oxygen saturation in Arterial blood by Pulse oximetry Systolic And Diastolic Provider Name and Address Organization Details Last Updated DateTime 5 868435. 31 g 33.8 kg/m2 172.72 cm 98.1 [degF] 81 /min 97 % 97 % 132/74 mm[Hg] Carleen Valverde [facility] 5 09:50:56 Social History Question Answer Notes LastModified by Organizat ion Details LastModified Time Tobacco Smoking Status Never Smoker Dalia Pliler null, [facility] 09/26/2023 10:29:01 What Was The Date Of Your Most Recent Tobacco Screening? 09/26/2023 Information not available 09/26/2023 Sex: Unknown Functional Status Question Answer Note LastModified by Organizat ion Details LastModified Time Do you use any illicit or recreational drugs? No Information not available 09/26/2023 What is your level of alcohol consumption? None Information not available 09/26/2023 Mental Status None recorded. Family History Nothing Reported. Medical History Condition Response Allergies/Hayfever Y Immunizations Vaccine Type Date Status Note Provider Nam e and Address Organization Details Recorded Time TST-PPD intradermal 7 completed Not Available [facility] 01/17/2023 02:54:12 Influenza, split virus, trivalent, preservative 8 completed Not Available [facility] 01/17/2023 02:54:12 Td (adult) 2 completed Not Available [facility] 01/17/2023 02:54:13 Influenza, split virus, quadrivalent, preservative 8 completed Not Available [facility] 01/17/2023 02:54:13 DTP 5 completed Not Available [facility] 10/31/2024 09:42:29 OPV, trivalent 5 completed Not Available [facility] 10/31/2024 09:42:29 DTP 5 completed Not Available [facility] 10/31/2024 09:42:29 OPV, trivalent 5 completed Not Available [facility] 10/31/2024 09:42:29 DTP 6 completed Not Available [facility] 10/31/2024 09:42:29 OPV, trivalent 6 completed Not Available [facility] 10/31/2024 09:42:29 DTP 7 completed Not Available [facility] 10/31/2024 09:42:29 OPV, trivalent 7 completed Not Available [facility] 10/31/2024 09:42:29 MMR 7 completed Not Available [facility] 10/31/2024 09:42:29 DTP 9 completed Not Available [facility] 10/31/2024 09:42:29 OPV, trivalent 9 completed Not Available [facility] 10/31/2024 09:42:29 MMR 2 completed Not Available [facility] 10/31/2024 09:42:29 Hep B, unspecified formulation 6 completed Not Available [facility] 10/31/2024 09:42:29 Hep B, unspecified formulation 6 completed Not Available [facility] 10/31/2024 09:42:29 Hep B, unspecified formulation 7 completed Not Available [facility] 10/31/2024 09:42:29 Hep A, ped/adol, 2 dose 8 completed Not Available [facility] 10/31/2024 09:42:29 Hep A, ped/adol, 2 dose 8 completed Not Available [facility] 10/31/2024 09:42:29 Td (adult), 2 Lf tetanus toxoid, preservative free, adsorbed 9 completed Not Available [facility] 10/31/2024 09:42:29 Hep A, ped/adol, 2 dose 9 completed Not Available [facility] 10/31/2024 09:42:29 Pneumococcal conjugate PCV 13 9 completed Not Available [facility] 10/31/2024 09:42:29 Influenza, split virus, quadrivalent, PF 3 completed Not Available [facility] 10/31/2024 09:42:29 MMR 4 completed Not Available [facility] 10/31/2024 09:42:29 MMR 4 completed Not Available [facility] 10/31/2024 09:42:29 Influenza, split virus, trivalent, PF 4 completed Not Available [facility] 10/31/2024 09:42:29 Past Encounters Encounter ID Performer Location Encounter Start Date Encounter Closed Date Diagnosis/Indication Diagnosis SNOMED-CT Code Diagnosis ICD10 Code Diagnosis Note [id number] CODY MASTERS APRN [facility] ([facility]) [address] [place] [address] 09/26/2023 09:30:35 09/26/2023 11:16:14 Sore throat 716994781 J02.9 Acute pharyngitis 004630 003 J02.9 [id number] Acosta BrooksonDO [facility] ([facility]) [address] [place] [address] 10/31/2024 09:41:11 10/31/2024 10:31:53 Acute bacterial sinusitis 73758886 J01.90 B96.89 I counseled pt on diagnosis and treatment. we will start abx, steroids, pt to take OTC antihistam ine. return if not improving in 1-2 wks. Health Concerns Section Related Observation LastModified by Organization Detai ls LastModified Time None Recorded Concern Status LastModified by Organization Details LastModified Time None Recorded Advance Directives Directive None Recorded Payers Insurance Date Sequence Insurance Name Policy Number Policy Schmidt Covered Member ID Schmidt Member ID Guarantor Name 10/31/2024 1 [place] [employer] [place] [employer] PROGRAM 113 Renny Arnett [id number] Renny Arnett 10/31/2024 1 [facility] [place] (PP[place]) 113 Renny Arnett [id number] Renny Arnett
--- OUTSIDE RECORDS SUMMARY | 2025-01-17 18:15 | XMS_ITS | Clinical Summary ---
Author Organization [facility] Address [address] [place] [address] Care Team Providers Care School Child Care Attendant Name Role Phone Unavailable Primary Care Provider Unavailabl e Allergies Active Allergy Reactions Criticality Noted Date Comments Clindamycin Hives,Rash High 01/26/2020 Gabapentin Hives,Rash High 01/26/2020 Paroxetine Other (See Comments) 01/26/2020 Becomes aggressive Sumatriptan Other (See Comments) 01/26/2020 Ask pt Typhoid Vaccine Anaphylaxis High 01/26/2020 Zonisamide Other (See Comments) 01/26/2020 Stop breathing Medications acetaminophen (TYLENOL) 500 mg tablet Take 500 mg by mouth every 6 hours as needed. Active lamoTRIgine (LaMICtal) 25 mg tablet Take 25 mg by mouth daily. Active ALPRAZolam (XANAX) 0.25 mg tablet Take 0.25 mg by mouth nightly as needed for Anxiety. Active famotidine (PEPCID) 40 mg tablet Take 40 mg by mouth 2 times daily. 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 Active cholecalciferol , vitamin D3, 1,000 unit Take by mouth. Active ascorbic acid (VITAMIN C) 100 mg Tablet, Chewable Take 100 mg by mouth. Active Active Problems No known active problems Social History Tobacco Use Types Packs/Day Years Used Date Smoking Tobacco: Never Smokeless Tobacco: Never Sex and Gender Information Value Date Recorded Sex Assigned at Not on file Legal Sex Male 8:44 AM CDT Gender Identity Not on file Sexual Orientation Not on file Last Filed Vital Signs Vital Sign Reading Time Taken Comments Blood Pressure 134/88 01/26/2020 11:28 AM CDT Pulse 76 01/26/2020 11:28 AM CDT Temperature - - Respiratory Rate 14 01/12/2015 8:53 AM CDT Oxygen Saturation - - Inhaled Oxygen Concentration - - Weight 95.3 kg (210 lb) 01/26/2020 11:28 AM CDT Height 175.3 cm (5' 9 ) 01/26/2020 11:28 AM CDT Body Mass Index 31.01 01/26/2020 11:28 AM CDT Plan of Treatment Health Maintenance Due Date Last Done Comments HPV VACCINES (1 - Male 3-dose series) 12/22/1999 DTAP/TDAP/TD VACCINES (1 - Tdap) 12/22/2003 HEPATITIS B VACCINES (1 of 3 - 19+ 3-dose series) 07/2003 INFLUENZA VACCINE (#1) 2025 01/30/2020 Insurance [employer]
[2025-01-17 20:05] VITALS: BP 132/87; PULSE 94; RESP 18; O2SAT 99
--- NOTE | 2025-01-17 20:11 | W.ED.ALLEREA ---
HPI - Allergic Reaction General: Chief complaint: Allergic Reaction Stated complaint: PossiblE Allergic Reaction Time Seen by Provider: 01/17/25 19:48 History of Present Illness: HPI narrative: Patient is a 39-year-old male with multiple SNRI/SSRI side effects/allergies that presents to the emergency room after starting Trileptal, and having tingling on his right leg down, and the feeling of a sensation on his tongue. He started this 1 week ago. He initially started at 150 mg daily, then noted side effect, and then reduced his dose to 75 mg p.o. daily. He was supposed to increase this to 300 mg daily. Associated symptoms: Deny abdominal pain, dizziness, nausea or vomiting Related Data Home Medications ?Medication ?Instructions ?Recorded ?Confirmed fexofenadine 180 mg tablet See Rx Instructions .Route .COMPLEX 07/24/23 01/13/25 cholecalciferol (vitamin D3) 100 100 mcg PO DAILY 12/28/23 01/13/25 mcg (4,000 unit) tablet alprazolam 0.25 mg tablet (Xanax) 0.25 mg PO PRN PRN Anxiety 01/11/24 01/13/25 betamethasone valerate 0.1 % 1 applic topical TID PRN Skin 01/11/24 01/13/25 topical ointment Irritation ciclopirox 8 % topical solution 1 applic topical DAILY 01/11/24 01/13/25 NI-eiagbybxmaz-otdeel ox-Zn ER 500 tab PO 01/13/25 01/13/25 mcg-750 mg-1.5 mg-25 mg tablet,ER oxcarbazepine 150 mg tablet 300 mg PO BID 01/13/25 01/13/25 Anxiety/Depression/Mood terbinafine HCl 250 mg tablet 250 mg PO DAILY fungal infection 01/13/25 01/13/25 in right toe Previous Rx's ?Medication ?Instructions ?Recorded levothyroxine 100 mcg tablet 100 mcg PO DAILY #90 tabs 07/23/23 (Synthroid) phentermine 15 mg-topiramate ER 92 1 cap PO DAILY #30 caps 12/16/24 mg capsule,ext.[id number] multphas (Qsymia) epinephrine 0.3 mg/0.3 mL 0.3 mg (0.3 mL) IM Q10M PRN 01/17/25 injection, auto-injector (EpiPen anaphylaxis #2 ea 2-Vinnie) methylprednisolone 4 mg tablets in See Rx Instructions PO .COMPLEX 01/17/25 a dose pack (Medrol (Vinnie)) #21 ea Allergies Allergy/AdvReac Type Severity Reaction Status Date / Time semaglutide (From Wegovy) Allergy Severe ALGY-Anaphy Verified 01/17/25 18:17 laxis amitriptyline Allergy ALGY-Anaphy Verified 01/17/25 18:17 laxis clindamycin Allergy ALGY-Rash Verified 01/17/25 18:17 duloxetine Allergy ALGY-Rash Verified 01/17/25 18:17 fluoxetine Allergy ALGY-Rash Verified 01/17/25 18:17 gabapentin (From Neurontin) Allergy ALGY-Rash Verified 01/17/25 18:17 nortriptyline Allergy ALGY-Anaphy Verified 01/17/25 18:17 laxis pregabalin (From Lyrica) Allergy ALGY-Rash Verified 01/17/25 18:17 sulfamethoxazole (From Allergy ALGY-Rash Verified 01/17/25 18:17 Bactrim) sumatriptan (From Imitrex) Allergy Unknown Verified 01/17/25 18:17 trimethoprim (From Bactrim) Allergy ALGY-Rash Verified 01/17/25 18:17 typhoid vaccine Allergy ALGY-Anaphy Verified 01/17/25 18:17 laxis Review of Systems General: Reports: 10 or more systems reviewed and unremarkable except in HPI and below Eyes: Denies: change in vision or blurry vision ENMT: Reports: dry mouth; Denies: throat pain, mouth pain or nasal congestion Card: Denies: chest pain or palpitations Resp: Denies: dyspnea, productive cough or non-productive cough GI: Denies: abdominal pain, nausea or vomiting : Denies: flank pain or difficulty urinating Musc: Denies: neck pain, back pain, extremity pain or extremity swelling Skin/Breast: Denies: rash or pruritus Neuro: Reports: numbness in extremities (see hpi) and confusion; Denies: lack of coordination, difficulty walking, dizziness, vertigo or Slurred speech present Psych: Denies: anxiety or depression PFS ED PFSH: Medical History (Updated 01/17/25 @ 20:13 by NORMA Lowe) Blood in stool Social History Smoking and tobacco/nicotine status: unknown if used tobacco/nicotine Physical Exam Const: COMMON NORMALS: no acute distress and alert GENERAL APPEARANCE: cooperative HENMT: COMMON NORMALS: normocephalic and external ears normal HEAD & SCALP: normocephalic EXTERNAL EAR: Yes external ears normal Eye: COMMON NORMALS: EOMs intact bilaterally and conjunctivae normal CONJUNCTIVA: Yes conjunctivae normal Lymph: LYMPHATIC: no lymphadenopathy noted Chest: COMMONS NORMALS: normal inspection of the chest and normal palpation of entire chest wall Resp: COMMON NORMALS: normal respiratory effort, No retractions and No use of accessory muscles GI: COMMON NORMALS: Normal to inspection, nondistended, normoactive bowel sounds present and Soft to palpation PALPATION: Yes Soft to palpation : COMMON NORMALS: Yes no CVA tenderness BLADDER/KIDNEY EXAM: Yes no CVA tenderness Back/Pelvis: COMMON NORMALS: no CVA tenderness and thoracic and lumbar spine normal to inspection Extremity: COMMON NORMALS: normal to inspection, full ROM and capillary refill normal Neuro: SENSORIUM/ORIENTATION: Yes alert Psych: COMMON NORMALS: mental status grossly normal and cooperative Course Vital Signs: Vital signs: Vital Signs Temperature 98.0 F 01/17/25 18:12 Pulse Rate 88 01/17/25 20:33 Respiratory Rate 18 01/17/25 20:05 Blood Pressure 117/82 01/17/25 20:33 Pulse Oximetry 97 01/17/25 20:33 Oxygen Delivery Me thod Room Air 01/17/25 20:05 MDM - Allergic Reaction Medical Decision Making Patient is 3-year-old gentleman with multiple allergies SNRI and SSRI, working through these with his primary care, recently started on Trileptal. He started having the tingling on neuropathic symptoms to his right lower extremity, distal leg, and later in the conversation added to tingling in his tongue. He did have association of confusion. These are symptoms of Trileptal, and I suspect a medication side effect since patient is quite sensitive. Discussed with patient. He is stopping this and discussing further with his physician. No radiology studies performed this visit Discharge Plan Discharge Patient Disposition: Home Clinical Impression: Drug side effects Condition: Stable Prescriptions: New epinephrine [EpiPen 2-Vinnie] 0.3 mg/0.3 mL auto-injector 0.3 mg IM Q10M PRN (Reason: anaphylaxis) Qty: 2 0RF Rx Instructions: for 2 doses methylprednisolone [Medrol (Vinnie)] 4 mg tablets,dose pack See Rx Instructions .ROUTE .COMPLEX Qty: 21 0RF Rx Instructions: for 6 days No Action cholecalciferol (vitamin D3) 100 mcg (4,000 unit) tablet 100 mcg PO DAILY Qsymia 15-92 mg capsule, ER multiphase 24 hr 1 cap PO DAILY Qty: 30 0RF oxcarbazepine 150 mg tablet 300 mg PO BID terbinafine HCl 250 mg tablet 250 mg PO DAILY Patient Comments: It will be for a total of 3 months and I'm on month 2. WJ-uufigsylheq-duoydy ox-zinc 500-750-1.5-25 whs-xz-nw-mg tablet,ext release multiphase PO levothyroxine [Synthroid] 100 mcg tablet 100 mcg PO DAILY Qty: 90 0RF betamethasone valerate 0.1 % ointment 1 applic TOPICAL TID PRN (Reason: Skin Irritation) ciclopirox 8 % solution 1 applic TOPICAL DAILY Xanax 0.25 mg Tablet 0.25 mg PO PRN PRN (Reason: Anxiety) fexofenadine 180 mg Tablet See Rx Instructions .ROUTE .COMPLEX Rx Instructions: TAKE 1 TABLET BY MOUTH DIRECTED, TITRATE BETWEEN TAKING 1 TABLET 2 TO 4 TIMES DAILY FOR ALLERGY SYMPTOMS. Discharge Orders: Discharge ED (Routine); Ordered 01/17/25 Ordered By: Luz Arshad Referrals: Leslie Stephenson FNP [Primary Care Provider, Nurse Practitioner] Patient Instructions: Allergic Reaction, Patient Portal & Julian Instructions Activity Restrictions/Additional Instructions: Take Benadryl as needed Add a long-acting antihistamine such as Claritin, Jelena, Xyzal, Zyrtec Take Pepcid zeuc-vun-ncnauom twice daily for antihistamine as well I called [facility] to pharmacy. Hold these in case you need them Return to your doctor for further follow-up and instructions. Return to ED if you have worsening symptoms, tongue swelling, difficulty breathing, redness, wheals. Print Language: Nepalese Coding Level of Care Code ED Marketing Support Coordinator for Alphonse Story
--- NOTE | 2025-01-17 20:32 | PC.NURSE ---
zeus aware of ativan timed out, med not needed, pt being dc.
[2025-01-17 20:33] VITALS: BP 117/82; PULSE 88; O2SAT 97
== END 2025-01-17 20:33 | disposition home or self-care (01) ==
PROVIDERS: Emergency Provider Physician Assistant; PCP Nurse Practitioner
DX: T78.40XA Allergy, unspecified, initial encounter (principal); T50.905A Adverse effect of unspecified drugs, medicaments and biological substances, initial encounter; X58.XXXA Exposure to other specified factors, initial encounter
CPT/HCPCS: 99283

== ENCOUNTER 2025-01-30 07:10 | Outpatient (CLI) | payer OTHER, SELFPAY ==
[2025-01-30 09:21] LABS: Alanine Aminotransferase 37 U/L (0-41); Albumin Level 4.6 g/dL (3.5-5.2); Alkaline Phosphatase 75 U/L (40-130); Anion Gap 12.1 (5-19); Aspartate Amino Transferase 33 U/L (0-40); Blood Urea Nitrogen 12 mg/dL (6-20); CRP High Sensitivity Cardiac 0.350 mg/dL (0.0-0.3); Calcium 9.2 mg/dL (8.5-10.5); Carbon Dioxide 30 mmol/L (22-29); Chloride 106 mmol/L (98-107); Ferritin 125 ng/mL (30-400); Globulin 2.4 g/dL (1.3-4.6); Glucose 98 mg/dL (65-115); Iron 88 ug/dL (59-158); Magnesium 2.1 mg/dL (1.7-2.3); Osmolality Calculated 298 mOsm/kg (285-295); Potassium 4.1 mmol/L (3.5-5.1); Sodium 144 mmol/L (136-145); Total Iron Binding Capacity 295 mcg/dl; Total Protein 7.0 g/dL (6.6-8.7); Unsaturated Iron Binding 207 ug/dL (112-347); Vitamin B12 724 pg/mL (232-1245)
== END 2025-01-30 07:11 | disposition home or self-care (01) ==
LOC: LAB 07:11
PROVIDERS: PCP Nurse Practitioner; Visit Provider Internal Medicine
DX: E55.9 Vitamin D deficiency, unspecified (principal); E66.9 Obesity, unspecified; E03.9 Hypothyroidism, unspecified; R79.89 Other specified abnormal findings of blood chemistry; R71.8 Other abnormality of red blood cells; Z13.6 Encounter for screening for cardiovascular disorders
CPT/HCPCS: 36415; 80053; 82252; 82306; 82533; 82607; 82627; 82728; 82746; 83090; 83540; 83550; 83735; 83921; 84207; 86141

== ENCOUNTER 2025-02-02 06:57 | Outpatient (CLI) | payer OTHER, SELFPAY ==
[2025-02-05 22:44] LABS: Creatine Kinase BB Total None Detected (None Detected); Creatine Kinase Interpretation MACRO CK TYPE 1; Creatine Kinase MB Total 0 % (<5); Creatine Kinase MM Total 96 % (95-100)
== END 2025-02-02 06:58 | disposition home or self-care (01) ==
PROVIDERS: PCP Nurse Practitioner; Visit Provider Internal Medicine
DX: E55.9 Vitamin D deficiency, unspecified (principal)
CPT/HCPCS: 36415; 82252; 83921; 84207

== ENCOUNTER → 2025-02-10 07:59 | Outpatient (BNVA) | payer OTHER, SELFPAY | PROVIDERS: PCP Nurse Practitioner; Visit Provider Internal Medicine | DX: E03.9 Hypothyroidism, unspecified (principal); E66.9 Obesity, unspecified; E55.9 Vitamin D deficiency, unspecified | CPT/HCPCS: 99214 ==

== ENCOUNTER → 2025-03-17 07:50 | Outpatient (BNVA) | payer OTHER, SELFPAY | PROVIDERS: PCP Nurse Practitioner; Visit Provider Internal Medicine | DX: E03.9 Hypothyroidism, unspecified (principal); E66.9 Obesity, unspecified; E55.9 Vitamin D deficiency, unspecified | CPT/HCPCS: 99214 ==

== ENCOUNTER → 2025-04-26 08:38 | Outpatient (BNVA) | payer OTHER, SELFPAY | PROVIDERS: PCP Nurse Practitioner; Visit Provider Surgery | DX: K92.1 Melena (principal); R03.0 Elevated blood-pressure reading, without diagnosis of hypertension | CPT/HCPCS: 99204 ==

== ENCOUNTER 2025-05-13 05:27 | Emergency (ER) | payer OTHER, SELFPAY ==
--- OUTSIDE RECORDS SUMMARY | 2025-04-17 09:30 | XMS_ITS | Encounter Summary ---
Author Name [facility] [facility] [place] Address [address] [place] [address] Care Team Providers Care Senior Field Engineer Name Role Phone MARILY MYERS Primary Care [...] BASIC PLUS 1 Dec 13, 2017 113 [id number] [phone] Holly HARE PATIENT ANTHEM [place] FEP PREFERRED PROVIDER ORGANIZAT ION (PPO) FEP BASIC PLUS 1 Dec 13, 2017 113 [id number] [phone] Holly HARE PATIENT [place] PREFERRED PROVIDER ORGANIZAT ION (PPO) FEP BASIC PLUS 1 Dec 13, 2017 113 [id number] [phone] Holly HARE PATIENT BC BS [place] FEP PREFERRED PROVIDER ORGANIZAT ION (PPO) FEP Dec 13, 2017 113 [id number] Holly HARE PATIENT BC BS [place] (FEP) PREFERRED PROVIDER ORGANIZAT ION (PPO) FEP Dec 13, 2017 113 [id number] Holly HARE PATIENT BC BS [place] FEP PREFERRED PROVIDER ORGANIZAT ION (PPO) FEP-B ASIC- PPO Dec 13, 2017 113 [id number] Holly HARE PATIENT BC BS [place] FEP PREFERRED PROVIDER ORGANIZAT ION (PPO) 113 FEP Dec 13, 2017 113 [id number] [phone] Holly HARE PATIENT [place] FEP PREFERRED PROVIDER ORGANIZAT ION (PPO) FEP BASIC PLUS 1 Dec 13, 2017 113 [id number] [phone] Holly HARE PATIENT CAREMARK ([id number]) PRESCRIPT ION FEPRX Dec 13, 2017 [id number] Holly HARE PATIENT [place] ([id number]) PRESCRIPT ION FEP Dec 13, 2017 [id number] Holly HARE PATIENT [place] ([id number]) PRESCRIPT ION FEP Dec 13, 2017 [id number] Holly HARE PATIENT [place] ([id number]) FEP PRESCRIPT ION FEPRX Dec 13, 2017 [id number] Holly HARE PATIENT [place]EMARK ([id number]) FEP PRESCRIPT ION FEP Dec 13, 2017 [id number] Holly HARE PATIENT [place] FEP ([id number]) PRESCRIPT ION FEPRX Dec 13, 2017 [id number] [phone] Holly HARE PATIENT Selected Encounter This section includes the information on record at [place] for the Encounter. Date/Time Encounter Type Encounter Description Reason Provider Source Apr 17, 2025 03:30 PM OFFICE O/P EST LOW 20 MIN PRIMARY CARE/MEDICINE ICD-10-CM K92.1 JOSE Redmond [place] Encounter Template Text not used by [place] Assessments - Encounter Diagnoses This section includes the primary and secondary diagnoses documented for the Encounter. Date/Time Primary/Secondary Diagnosis Diagnosis Name Provider Source Apr 25, 2025 11:23 AM PRIMARY JOSE Redmond [facility] Plan of Treatment: Future Appointments (+ 6 months) and Future Tests (+/- 45 days) The Plan of Treatment section includes future care activities for the patient [facility] [place] [facility] This section includes future appointments and future orders which are active, pending or scheduled. Future Appointments This section includes appointments that were scheduled to occur 6 months from the date of the Encounter, up to a maximum of 20 appointments. The data comes from all [place] treatment [facility]. Appointment Date/Time Appointment Type Appointme nt Facility Name Apr 26, 2025 08:40 AM [facility]BULATORY - MEDICINE [facility] May 12, 2025 01:00 PM [facility]IC[facility] May 29, 2025 08:50 AM AM[facility]ORY - MEDICINE [facility] Aug 02, 2025 11:00 AM AMBULATORY - MEDICINE [facility] Sep 01, 2025 08:30 AM AMBULATORY - MEDICINE [facility] Active, Pending, and Scheduled Orders This section includes a listing of several types of active, pending, and scheduled orders, including clinic medications orders, diagnostic test orders, procedure orders and consult orders; where the start date of the order is 45 days before the date of the Encounter or 45 days after the date of theEncounter. The data comes from all [facility]. Test Date/Time Test Type Test Details Facility Name Apr 04, 2025 08:46 AM Consult Order COMMUNITY [facility]ARE-ALLERGY [id number] [employer] Engineer's Choice [facility] Apr 13, 2025 04:30 PM Consult Order [facility]DERMATOLOG[facility] [id number] [employer] Process Engineer's Choice [facility] Apr 17, 2025 03:55 PM Consult Order COMMUNITY CARE-COLONOSCOPY SURVEILLANCE [id number] [employer] Process Engineer's Choice [facility] May 05, 2025 04:32 PM Consult Order PROSTHETIC S REQUEST - OUTPT [id number] [employer] Process Engineer's [facility] May 11, 2025 03:50 PM Consult Order [facility]-CHIROPRACTIC [id number] [employer] Process Engineer's Choice [facility] Lab Results: +/- 30 days of the encounter This section includes the Chemistry and Hematology Lab Results on record with [place] for the patient. Radiology Reports and Pathology Reports are provided separately, in subsequent sections. Lab Results This section contains the Chemistry/Hematology Results that were resulted 30 days before or 30 daysafter the date of the Encounter. Date/Time Source Result Type Result - Unit Interpretation Reference Range Specimen Type Comment Mar 28, 2025 08:01 AM [facility] 24H UR HEAVY METAL SCREEN 24-HOUR URINE Specimen Type: 24-HOUR URINE Comment: Test not performed. Incorrect test ordered. Per client request, test has been cancelled and appropriate test has been ordered. Test Performed by [facility], [employer] [facility], [address] [place], [place] Cameron Reddy M.D., Ph.D., Director of Laboratories , CLIA [id number] This test was developed and its analytical performance characteristics have been determined by [employer] [place], [place]. It has not been cleared or approved by the U.S. Food and Drug Administration. This assay has been validated pursuant to the CLIA regulations and is used for clinical purposes. REFERENCE RANGE: <80 mcg/L TOXIC: > OR = 150 mcg/L Ordering Provider: MARILY MYERS Report Released Date/Time: Mar 24, 2025 09:47 AM Reporting Lab: [place] [facility] [address] [place] [address] Performing Lab: [facility] [id number] [facility] LE[address] (STL-MA) <10 ug/L SEE BELOW ARSENIC <10 ug/L <=80 MERCURY <4 ug/L <=20 Mar 24, 2025 11:57 AM [facility] AOUHXHGCW-PABPY-8,3-GALACTOSE IGE SERUM Speci men Type: SERUM Comment: Results above 0.1 kU/L indicate an allergen-specific IgE sensitization to czvwcylpz-a-1,3-galactose, and such patients are at risk for delayed allergic reactions following beef, pork, or fairchild consumption. Circulating IgE antibodies may remain undetectable despite a convincing clinical history because these antibodies may be directed towards allergens revealed or altered during industrial processing, cooking, or digestion and therefore do not exist in the original food for which the patient is tested. Sometimes individuals diagnosed with chronic urticaria may develop IgE antibodies directed against human thyroglobulin. Such antibodies may cross-react with the bovine thyroglobulin used in ImmunoCAP(R) Allergen o215, alpha-Gal, leading to a false-positive test result. A definitive diagnosis should be based on the evaluation of both clinical and laboratory findings and not on any single diagnostic method. Additional information can be found at [email or web address] Test performed by [employer] [facility] [address] [place] [address] Shop Firer/Fireman: Monica Kimbrough MD,PHD,KATHERINE Ordering Provider: MARILY MYERS Report Released Date/Time: Mar 24, 2025 11:53 AM Reporting Lab: [place] [facility] [address] [place] [facility] [address] Performing Lab: [place] [id number] [facility] QRLWPRSYN-HRNAX-5,3-GALACTOSE IGE <0.10 kU/L Mar 24, 2025 08:10 AM [facility] COPPER BLOOD Specimen Typ e: BLOOD Comment: Reporting Limit: 20 mcg/dL Normally: 80-180 mcg/dL. Analysis by Inductively Coupled Plasma/Mass Spectrometry (ICP/MS) Specimens for elemental testing should be collected in certified metal-free containers. Elevated results for elemental testing may be caused by environmental contamination at the time of specimen collection and should be interpreted accordingly. It is recommended that unexpected elevated results be verified by testing another specimen in a trace metal free container. This test was developed and its performance characteristics determined by [facility]. It has not been cleared or approved by the US Food and Drug Administration. Digital data review may have taken place remotely by qualified [facility] staff utilizing a secure VPN connection for some or all of the reported results. This is in accordance with and follows CLIA regulations. Ordering Provider: MARILY MYERS Report Released Date/Time: Mar 21, 2025 09:28 AM Reporting Lab: [place] [facility] [address] [place] [address] Performing Lab: [place] [facility] [address] [facility] COPPER 80 ug/dL 80-180 Mar 24, 2025 08:09 AM [facility] COENZYME Q10 (PB) SERUM Specimen Type: SERUM Comment: Coenzyme Q10 is a cuevas component of the electron transport chain, which creates energy. It is also involved in antioxidant pathways, including the regeneration of the protective functions of Vitamin E. CoQ10 may interact with the anticoagulant (blood thinner) warfarin and the diabetes drug insulin, and it may not be compatible with some types of cancer treament. For more information, visit [facility]. It has not been cleared or approved by the U.S. Food and Drug Administration. This assay has been validated pursuant to the CLIA regulations and is used for clinical purposes. Test performed by: [place] [address] Shop Firer/Fireman: Ash Mccormick MD CLIA:[id number] Ordering Provider: MARILY MYERS Report Released Date/Time: Mar 21, 2025 09:28 AM Reporting Lab: [place] [facility] [address] [place] [address] Performing Lab: [place] [address] COENZYME Q10 (PB) 1.42 ug/mL ->0.35 Mar 24, 2025 08:09 AM [facility] [place] [facility] ZINC BLOOD Specimen Type: BLOOD Comment: This test was developed and its analytical performance characteristics have been determined by [employer] [place]. It has not been cleared or approved by the U.S. Food and Drug Administration. This assay has been validated pursuant to the CLIA regulations and is used for clinical purposes. Test Performed by [facility], [employer] [facility], [address] [place] [address] Cameron Reddy M.D., Ph.D., Director of Laboratories , CLIA [id number] Ordering Provider: MARILY MYERS Report Released Date/Time: Mar 21, 2025 09:28 AM Reporting Lab: [place] [facility] [address] [place] [address] Performing Lab: [place] [address] ZINC 113 ug/dL 60-130 Mar 24, 2025 08:08 AM [facility] [place] [facility] MAGNESIUM, RBC (PB) BLOOD Specimen Type: BLOO D Comment: This test was developed and its analytical performance characteristics have been determined by [facility] [place], [place]. It has not been cleared or approved by the U.S. Food and Drug Administration. This assay has been validated pursuant to the CLIA regulations and is used for clinical purposes. Ordering Provider: MARILY MYERS Report Released Date/Time: Mar 21, 2025 09:28 AM Reporting Lab: [place] [facility] [address] [place] [address] Performing Lab: [place] [facility] [address] [facility] MAGNESIUM, RBC (PB) 5.2 mg/dL 4.0-6.4 Mar 24, 2025 08:08 AM [facility] CARNITINE SERUM Specimen Typ e: SERUM Comment: ESTERIFIED/FREE RATIO: 0.14 REF 0.12-0.39 These results can be seen in patients on carnitine supplementation or with acute renal failure. Interpretation reviewed by: Carlos Robrets MD, [facility].IF THE ORDERING/TREATING PHYSICIAN HAS ANY QUESTIONS REGARDING THESE RESULTS, PLEASE CONTACT THE [facility] AT ext [phone] or ext [phone] AND ASK TO SPEAK WITH THE FOUNDATION RELATIONS DIRECTOR CLEANING ASSOCIATE. FOR GENERAL QUESTIONS ABOUT [facility], PLEASE CALL THE GENE INFO LINE AT [phone].- Carnitine, an amino acid synthesized in animal tissues from lysine and methionine by an iron-ascorbate dependent pathway, functions as a carrier of fatty acids across cell membranes. Serum carnitine analysis is useful in the diagnosis and monitoring of patients with carnitine deficiency (either primary or secondary). Primary systemic carnitine deficiency (CDSP), also known as carnitine uptake defect (CUD) is an autosomal recessive disorder that affects carnitine uptake by cells and tissues through a defect in the plasma membrane carnitine transporter (OCTN2, encoded by the [id number] gene located on chromosome 5q31.1). The incidence of CDSP is approximately 1 in 50,000. The clinical presentation and age of onset of CDSP can vary, but typical findings include hypoketotic hypoglycemia, hepatomegaly, cardiomyopathy, skeletal myopathy, and weakness. If diagnosed early, treatment with carnitine can reverse many of the clinical symptoms. Secondary carnitine deficiency occurs in some disease states, in patients on carnitine-poor diets, or secondary to medications including valproic acid. It is also found in a number of metabolic disorders affecting fatty acid and organic acid metabolism. In these disorders, carnitine complexes with the accumulated substrate of the blocked metabolic step, and the resulting acylcarnitines are excreted in the urine, leading to a depletion of carnitine in the patient. Elevated free carnitine can occur in CPT-1 deficiency or secondary to dietary carnitine supplementation, while increased esterified carnitine may indicate an underlying metabolic defect. This test is not intended to diagnose these disorders. All results should be interpreted in the context of clinical findings, relevant history, and other laboratory data. This test was developed and its analytical performance characteristics have been determined by [employer]. It has not been cleared or approved by the FDA. This assay has been validated pursuant to the CLIA regulations and is used for clinical purposes. Test performed by [employer] [place] [id number] [place] [address] Shop Firer/Fireman: Monica Kimbrough MD,PHD,KATHERINE Ordering Provider: MARILY MYERS Report Released Date/Time: Mar 21, 2025 09:28 AM Reporting Lab: [place] [facility] [address] [place] [facility] [address] Performing Lab: [facility] [address] [facility] CARNITINE,TOTAL 75 umol/L H 30-70 CARNITINE,FREE 66 umol/L H 23-59 CARNITINE ESTERS 9 umol/L 4-15 Mar 24, 2025 08:08 AM [facility] FOLATE RBC BLOOD Specimen Typ e: BLOOD Comment: REFERENCE RANGE: >280 ng/mL RBC Ordering Provider: MARILY MYERS Report Released Date/Time: Mar 21, 2025 09:28 AM Reporting Lab: [place] [facility] [address] [place] [address] Performing Lab: [place] [facility] [address] [facility] FOLATE RBC 420 SEE BELOW Mar 24, 2025 08:08 AM [facility] CYSTATIN C EGFR PANELS (STL-PB-MA) PLASMA Spec imen Type: PLASMA Comment: Choice of which of the reported eGFR values to use depends on the clinical situation. For example, for patients with severe muscle wasting or reduced muscle mass, eGFR calculated using the 2012 cystatin equation may be preferred. Ordering Provider: MARILY MYERS Report Released Date/Time: Mar 21, 2025 09:28 AM Reporting Lab: [facility] [address] [address] Performing Lab: [facility] [address] [address] CYSTATIN C 0.92 mg/L 0.57-1.80 CKD-EPI CYSTATIN C (2011) 94.1 >60 CKD-EPI CREAT-CYSC (2020) 104.6 >60 CREATININE (STL) 0.84 mg/dL 0.7-1.3 Mar 24, 2025 08:08 AM [facility] FIBRINOGEN (STL-PB) PLASMA Specimen Type: PLAS MA No comment entered. Ordering Provider: MARILY MYERS Report Released Date/Time: Mar 21, 2025 09:28 AM Reporting Lab: [place] [facility] [address] [place] [address] Performing Lab: [place] [facility] [address] [place] [address] FIBRINOGEN (STL-PB) 298 mg/dL 200-450 Mar 24, 2025 08:08 AM [facility] LDH PLASM A Specimen Type: PLASMA No comment entered. Ordering Provider: MARILY MYERS Report Released Date/Time: Mar 21, 2025 09:28 AM Reporting Lab: [place] [facility] [address] [place] [address] Performing Lab: [place] [facility] [address] [place] [address] LDH 253 U/L H 125-243 Vital Signs: All taken on the encounter date This section contains inpatient and outpatient Vital Signs collected on the date of the Encounter. Date/Time Temperature Pulse Blood Pressure Respiratory Rate SP02 Pain Height Weight Body Mass Index Source Apr 17, 2025 03:24 PM 85 /min 114/73 mm[Hg] 94 % [facility] Apr 17, 2025 03:23 PM 81 /min 141/95 mm[Hg] 16 /min 94 % [facility] Social History: Smoking Status (Most current) and Tobacco Use (All prior to encounter date) This section includes the most current, and the historical, smoking and tobacco- related health factors from the [place] facility where the Encounter took place. Current Smoking Status This section includes the most current smoking, or tobacco-related health factor, from the [place] facility where the Encounter took place. Date/Time Current Smoking Status Comment Leeanne sin Sep 15, 2023 03:00 PM [place] USED [place] [facility] Tobacco Use History This section includes a history of the smoking, or tobacco-related health factors, that were collected on or before the date of the Encounter. The data comes from the [place] facility where the Encounter took place. Date/Time Smoking Status/Tobacco Use Comment Neelam acility May 10, 2021 01:30 PM [place]-TOBACCO [place]ED [place] [facility] Feb 13, 2020 03:00 PM [place]BACCO [place] USED [place] Sep 21, 2018 09:06 AM VA-TOBACCO NEVER USED [place] [place] Jan 26, 2013 11:11 AM LIFETIME NON-USER OF TOBACCO [facility] Jun 02, 2007 03:21 PM LIFETIME NON-USER OF TOBAC CO per record [facility] Encounter Notes: All associated encounter notes This section contains the clinical notes associated to the Encounter. Date/Time Encounter Note(s) Provider Source Apr 17, 2025 03:45 PM PRIMARY CARE PROGR ESS NOTE: LOCAL TITLE: PRIMARY CARE CLINIC PROGRESS NOTE PB STANDARD TITLE: PRIMARY CARE PROGRESS NOTE DATE OF NOTE: APR 17, 2025@15:45 ENTRY DATE: APR 17, 2025@15:45:25 AUTHOR: MARILY MYERS COSIGNER: URGENCY: STATUS: COMPLETED PROVIDER ASSESSMENT DATE & TIME:Mar@15:45 CHIEF COMPLAINT: Blood in stool with BM, upper abdominal pain. HISTORY OF PRESENT ILLNESS: [place] is being seen for abdominal pain and bright red blood in his stools with bowel movement. [place] states that he has not had a colonoscopy in several years. He had polyps removed at that time and was scheduled to return in 10 years so he is overdue. He denies any other changes. 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: 1) Knee joint pain (SNOMED CT 29076230) 2) Acute meniscal tear, lateral 3) Chronic depression 4) Migraine 5) Obstructive sleep apnea syndrome 6) Low Back Pain (SCT 515880983) 7) Insomnia (SCT 279431376) 8) Fatigue 9) Anxiety (SCT 62730923) 10) Tinnitus 11) Irritable bowel syndrome with diarrhea 12) Sciatica 13) Chronic post-traumatic stress disorder 14) Impingement syndrome of right shoulder region 15) Erectile dysfunction (SNOMED CT 295254415) 16) GERD - Gastro-Esophageal Reflux Disease (SCT 704796802) 17) Patellar instability 18) Allergic Rhinitis (SCT 57546045) 19) Chronic otitis media 20) Hypothyroidism 21) Non-fluent speech 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, predominantly inattentive type 23) Exposure to potentially hazardous substance 24) Shoulder pain 25) Idiopathic peripheral neuropathy 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 TAKE SEPARATELY FROM ALL OTHER MEDICATIONS. Indication: FOR HYPOTHYROIDISM 5) MODAFINIL 200MG TAB TAKE ONE TABLET BY MOUTH EVERY MORNING ACTIVE FOR SLEEP APNEA REVIEW OF SYSTEMS: GI: No nausea, vomiting, diarrhea, constipation, melena, or hematochezia. abdominal pain. blood in stool : No dysuria, hematuria, urinary frequency, weak stream, or post-void dribbling. MUSCULOSKELETAL:No muscle or joint pain. SKIN: No rash, lesions, or infection PSYCH: No Depression or Anxiety. Not suicidal. PHYSICAL ASSESSMENT: VITAL SIGNS Pulse: 85 (04/17/2025 15:24) Blood Pressure: 114/73 (04/17/2025 15:24) Respiratory Rate: 16 (04/17/2025 15:23) Temperature: 98.5 F [36.9 C] (11/28/2024 08:32) Weight: 231.9 lb [105.19 kg] (03/21/2025 08:39) Height: 68.0 in [172.7 cm] (03/21/2025 08:39) Pain: 6 (03/21/2025 08:39) CARDIAC: Regular rate and rhythm without murmur. No edema. RESPIRATORY: CTA, BEBS GI: Abdomen soft,with ABS, no HSM, no guarding or rebound. SKIN: [place] without rash or lesions. NEUROLOGICAL: The [place] is alert and oriented without distress. Affect appropriate. IMPRESSION: Melena-current PLAN: Increase water intake. Continue current medications. To ER if bleeding worsens. Will order colonoscopy. RTC as previously scheduled. Please refer to the OIS Note for [place]'s future plan of care. Follow Up Colonoscopy - L,N,P,PH: Colonoscopy is due based on information available to this reminder. Colonoscopy consult has been ordered. See orders tab for details. Patient is advised this primary care clinic has open access and he can make a same day appointment anytime a problem/concern arises. Patient further advised he can be seen on a walk-in basis as needed. Patient is provided clinic contact information. Medications reviewed and reconciled. Opportunity provided to report concerns and ask questions. Discussed diet and exercise as relevant to patient conditions. Please refer to addendum or follow up lab letter for plan of care/changes related to lab/test results not available at conclusion of appointment, if any. See OPI for medication list and reconciliation as well as discharge instructions. Discussed with patient that in the event of community imaging / testing being ordered in the future, once the imaging / testing has been completed, please notify PACT of within 1 week by a [facility] member; this is due to intermittent lapses in notification of imaging completion within CPRS. All questions answered; agrees to plan of care. Follow up as listed above, annually, and as needed. Keep all completion at outside facility if not called with results appointments. Medications Reconciled. Time spent 30 minutes. /stefano/ LAVON Barker [facility] Signed: 04/19/2025 16:58 MARILY MYERS [facility] Apr 17, 2025 03:45 PM PRIMARY CARE EDUCA TION NOTE: LOCAL TITLE: OPT PHY INSTR AUTO PB STANDARD TITLE: PRIMARY CARE EDUCATION NOTE DATE OF NOTE: APR 17, 2025@15:45 ENTRY DATE: APR 19, 2025@16:59:04 AUTHOR: MARILY MYERS EXP COSIGNER: URGENCY: STATUS: COMPLETED This documentation is related to: . Patient seen today for Illness. Description of Today's Injury/Illness: Mental Health Testing: RETURN TO CLINIC: Return to clinic as previously scheduled. . Special Instructions: . None. MEDICATION REVIEW/ASSESSMENT & PLAN: Increase water intake. Continue current medications. To ER if bleeding worsens. Will order colonoscopy. RTC as previously scheduled. Allergies/ADRs (Tool #5) FACILITY ALLERGY/ADR -------- No Remote Allergy/ADR Data available for this patient [facility] ARIPIPRAZOLE [facility]ACTRIM [facility] CELEBREX [facility] CITALOPRAM [facility] CLINDAMYCIN [facility] FLUOXETINE [facility] GABAPENTIN [facility] OXCARBAZEPINE [facility] PAROXETINE [facility] SERTRALINE [facility] SULFA DRUGS [facility] SUMATRIPTAN [facility] TRINTELLIX [facility] TYPHOID VACCINE [facility] VENLAFAXINE [facility] ZONISAMIDE Med. Reconciliation (Tool #1) INCLUDED IN THIS LIST: Alphabetical list of active outpatient prescriptions dispensed from this [place] (local) and dispensed from another [place] or [facility] facility (remote) as well as inpatient orders (local pending and active), local clinic medications, locally documented non-VA medications, and local prescriptions that have or been discontinued in the past 90 days. Non-VA Meds Last Documented On: Data not found NOTE The display of VA prescriptions dispensed from another [place] or [facility] facility (remote) is limited to active outpatient prescription entries matched to National Drug File at the originating site and may not include some items such as investigational drugs, compounds, etc. NOT INCLUDED IN THIS LIST: Medications self-entered by the patient into personal health records (i.e. [employer]) are NOT included in this list. Non-VA medications documented outside this [place], remote inpatient orders (regardless of status) and remote clinic medications are NOT included in this list. The patient and provider must always discuss medications the patient is taking, regardless of where the medication was dispensed or obtained. OUTPT ALPRAZOLAM 0.25MG TAB (Status = Active) TAKE ONE TABLET BY MOUTH ONCE A DAY NEEDED FOR PANIC DISORDER Rx# [id number] Last Released: 02/10/25 Qty/Days Supply: Rx Expiration Date: 06/30/25 Refills Remainin Indication: FOR PANIC DISORDER OUTPT ARIPIPRAZOLE 5MG TAB (Status = Discontinued) TAKE ONE TABLET BY MOUTH ONCE A DAY FOR 7 DAYS, THEN TAKE TWO TABLETS ONCE A DAY Rx# [id number] Last Released: 12/01/24 Qty/Days Supply: 60 Rx Expiration Date: 11/03/25 Refills Remainin OUTPT BETAMETHASONE VALERATE 0.1% OINT (Status = Active) APPLY TO AFFECTED AREA(S) TWICE DAILY NEEDED APPLY TO RASH Rx# [id number] Last Released: 11/16/24 Qty/Days Supply: Rx Expiration Date: 09/02/25 Refills Remainin OUTPT CHOLECALCIF 10MCG (D3-400UNIT) TAB (Status = Discontinued) TAKE TWO TABLETS BY MOUTH ONCE A DAY FOR VITAMIN D DEFICIENCY Rx# [id number] Last Released: 02/21/25 Qty/Days Supply: 200/ Rx Expiration Date: 09/14/25 Refills Remainin Indication: FOR VITAMIN D DEFICIENCY OUTPT FEXOFENADINE HCL 180MG TAB (Status = Active) TAKE ONE TABLET BY MOUTH DIRECTED TITRATE BETWEEN TAKING 1 TABLET 2 TO 4 TIMES A DAY FOR ALLERGY SYMPTOMS Rx# [id number] Last Released: 01/04/25 Qty/Days Supply: 120/30 Rx Expiration Date: 12/29/25 Refills Remainin OUTPT LEVOTHYROXINE NA 100MCG TAB (Status = Discontinued) TAKE ONE TABLET BY MOUTH EVERY MORNING BEFORE A MEAL FOR HYPOTHYROIDISM TAKE 30 MINUTES BEFORE FOOD. TAKE SEPARATELY FROM ALL OTHER MEDICATIONS. Rx# [id number] Last Released: 03/08/25 Qty/Days Supply: Rx Expiration Date: 06/19/25 Refills Remainin Indication: FOR HYPOTHYROIDISM OUTPT LEVOTHYROXINE NA 100MCG TAB (Status = Active/Suspended) TAKE ONE TABLET BY MOUTH EVERY MORNING BEFORE A MEAL FOR HYPOTHYROIDISM TAKE 30 MINUTES BEFORE FOOD. TAKE SEPARATELY FROM ALL OTHER MEDICATIONS. Rx# [id number] Last Released: Supply: Rx Expiration Date: 03/22/26 Refills Remainin Indication: FOR HYPOTHYROIDISM OUTPT MODAFINIL 200MG TAB (Status = Active) TAKE ONE TABLET BY MOUTH EVERY MORNING FOR SLEEP APNEA Rx# [id number] Last Released: 03/20/25 Qty/Days Supply: Rx Expiration Date: 08/13/25 Refills Remainin OUTPT PANTOPRAZOLE NA 20MG EC TAB (Status = ) TAKE ONE TABLET BY MOUTH EVERY MORNING BEFORE A MEAL FOR GASTROESOPHAGEAL REFLUX DISEASE TAKE 30 MINUTES BEFORE MEAL(S) Rx# [id number] Last Released: 12/30/24 Qty/Days Supply: Rx Expiration Date: 03/28/25 Refills Remainin Indication: FOR GASTROESOPHAGEAL REFLUX DISEASE OUTPT PHENTERMINE 15/TOPIRAMATE 92MG SA CAP (Status = Discontinued) TAKE 1 CAPSULE BY MOUTH EVERY MORNING Rx# [id number] Last Released: 01/31/25 Qty/Days Supply: Rx Expiration Date: 02/26/25 Refills Remainin OUTPT PHENTERMINE 15/TOPIRAMATE 92MG SA CAP (Status = Discontinued) TAKE 1 CAPSULE BY MOUTH ONCE A DAY Rx# [id number] Last Released: 03/02/25 Qty/Days Supply: Rx Expiration Date: 03/12/25 Refills Remainin OUTPT TERBINAFINE HCL 250MG TAB (Status = ) TAKE ONE TABLET BY MOUTH ONCE A DAY Rx# [id number] Last Released: 01/02/25 Qty/Days Supply: Rx Expiration Date: 01/28/25 Refills Remainin OUTPT TERBINAFINE HCL 250MG TAB (Status = ) TAKE ONE TABLET BY MOUTH ONCE A DAY Rx# [id number] Last Released: 02/21/25 Qty/Days Supply: Rx Expiration Date: 03/17/25 Refills Remainin SUPPLIES PHARMACY TERMS AND POSSIBLE PATIENT ACTIONS INPT = [place] inpatient order IV = [place] intravenous medication OUTPT = [place] outpatient prescription PHARMACY POSSIBLE PATIENT TERMS EXPLANATION ACTIONS -------- ---- ACTIVE A prescription that can be If you have refills, filled at the local [place] pharmacy. you may request a refill of this prescription from your VA pharmacy. CLINIC A medication you received during If you have questions a visit to a VA clinic or about this medication emergency department. contact your VA healthcare team. DISCONTINUED A prescription your provider has Contact your VA stopped. It is no longer healthcare team if you available to be sent to you or need more of this picked up at the [place] pharmacy medication. window. A prescription which is too old Contact your VA to fill. This does not refer to healthcare team if you the expiration date of the need more of this medication in the container. medication. NON-VA A medication that came from If this medication someplace other than a VA information is pharmacy. This may be a incorrect or out of prescription from either the VA date, please tell your or non VA providers that was VA healthcare team. filled outside the VA. Or, it may be an lgwp-acf-[id number] (OTC), herbal, dietary supplements or sample medication. ON HOLD An active prescription that will Contact your VA not be filled until pharmacy pharmacy when you need resolves the issue. more of this medication. PARKED An active prescription that will Contact your VA not be filled until the patient pharmacy when you need requests it. this medication. PENDING This prescription order has been If you have been sent to the pharmacy for review instructed to start and is not ready yet. this medication now, contact your VA pharmacy. SUSPENDED An active prescription that is Contact your [place] not scheduled to be filled yet. pharmacy if you need You should receive it before this medication now. you run out. Medication reconciliation performed with confirmed /caregiver and /caregiver voiced an understanding of current medications? Yes /caregiver were provided an updated medication list. Following results reviewed and discussed with patient: No change in treatment plan. Future Appointments: 05/12/2025 13:00 COM CARE-DERMATOLOGY [id number] 05/29/2025 08:50 COM CARE-NEUROLOGY [id number] 08/02/2025 11:00 COM CARE-ALLERGY [id number] 09/01/2025 08:30 PB-KARISSA KRAMER /stefano/ JUNE [facility] Signed: 04/19/2025 17:00 MARILY MYERS [facility] Apr 17, 2025 03:18 PM PRIMARY CARE NURSI TERRY NOTE: LOCAL TITLE: PRIMARY CARE NURSING PROGRESS NOTE (TEXT) NURSING P STANDARD TITLE: PRIMARY CARE NURSING NOTE DATE OF NOTE: APR 17, 2025@15:18 ENTRY DATE: APR 17, 2025@15:18:20 AUTHOR: KEI FUENTES EXP COSIGNER: URGENCY: STATUS: COMPLETED Established Patient PETE HARE II IS A 39 YEAR OLD MALE BEING SEEN IN CLINIC APR 17, 2025. = = REASON FOR VISIT: here today for concerns of Blood in his stool. Are you receiving care any where other than the [place]? No HEALTH AND SURGICAL HISTORY: Does patient report using home oxygen? No CURRENT ACTIVE MEDICATIONS FOR REVIEW: If the list for review does not include a component, then it was not applicable to this patient. Allergies/ADRs (Tool #5) FACILITY ALLERGY/ADR -------- No Remote Allergy/ADR Data available for this patient [facility] ARIPIPRAZOLE [facility] BACTRIM DS [facility]LEBRE[facility] CITALOPRAM [facility] CLINDAMYCIN [facility]UOXETINE [facility] OXCARBAZEPINE [facility] PAROXETINE [facility] SERTRALINE [facility] SULFA DRUGS [facility] SUMATRIPTAN [facility] TRINTELLIX [facility] TYPHOID VACCINE [facility] ZONISAMIDE Med. Reconciliation (Tool #1) INCLUDED IN THIS LIST: Alphabetical list of active outpatient prescriptions dispensed from this [place] (local) and dispensed from another [place] or [facility] facility (remote) as well as inpatient orders (local pending and active), local clinic medications, locally documented non-VA medications, and local prescriptions that have or been discontinued in the past 90 days. Non-VA Meds Last Documented On: Data not found NOTE The display of VA prescriptions dispensed from another [place] or [facility] facility (remote) is limited to active outpatient prescription entries matched to National Drug File at the originating site and may not include some items such as investigational drugs, compounds, etc. NOT INCLUDED IN THIS LIST: Medications self-entered by the patient into personal health records (i.e. [employer]) are NOT included in this list. Non-VA medications documented outside this [place], remote inpatient orders (regardless of status) and remote clinic medications are NOT included in this list. The patient and provider must always discuss medications the patient is taking, regardless of where the medication was dispensed or obtained. OUTPT ALPRAZOLAM 0.25MG TAB (Status = Active) TAKE ONE TABLET BY MOUTH ONCE A DAY NEEDED FOR PANIC DISORDER Rx# [id number] Last Released: 02/10/25 Qty/Days Supply: Rx Expiration Date: 06/30/25 Refills Remainin Indication: FOR PANIC DISORDER OUTPT ARIPIPRAZOLE 5MG TAB (Status = Discontinued) TAKE ONE TABLET BY MOUTH ONCE A DAY FOR 7 DAYS, THEN TAKE TWO TABLETS ONCE A DAY Rx# [id number] Last Released: 12/01/24 Qty/Days Supply: 60/34 Rx Expiration Date: 11/03/25 Refills Remainin OUTPT BETAMETHASONE VALERATE 0.1% OINT (Status = Active) APPLY TO AFFECTED AREA(S) TWICE DAILY NEEDED APPLY TO RASH Rx# [id number] Last Released: 11/16/24 Qty/Days Supply: 45/30 Rx Expiration Date: 09/02/25 Refills Remainin OUTPT CHOLECALCIF 10MCG (D3-400UNIT) TAB (Status = Discontinued) TAKE TWO TABLETS BY MOUTH ONCE A DAY FOR VITAMIN D DEFICIENCY Rx# [id number] Last Released: 02/21/25 Qty/Days Supply: 200/90 Rx Expiration Date: 09/14/25 Refills Remainin Indication: FOR VITAMIN D DEFICIENCY OUTPT FEXOFENADINE HCL 180MG TAB (Status = Active) TAKE ONE TABLET BY MOUTH DIRECTED TITRATE BETWEEN TAKING 1 TABLET 2 TO 4 TIMES A DAY FOR ALLERGY SYMPTOMS Rx# [id number] Last Released: 01/04/25 Qty/Days Supply: 120/30 Rx Expiration Date: 12/29/25 Refills Remainin OUTPT LEVOTHYROXINE NA 100MCG TAB (Status = Discontinued) TAKE ONE TABLET BY MOUTH EVERY MORNING BEFORE A MEAL FOR HYPOTHYROIDISM TAKE 30 MINUTES BEFORE FOOD. TAKE SEPARATELY FROM ALL OTHER MEDICATIONS. Rx# [id number] Last Released: 03/08/25 Qty/Days Supply: Rx Expiration Date: 06/19/25 Refills Remainin Indication: FOR HYPOTHYROIDISM OUTPT LEVOTHYROXINE NA 100MCG TAB (Status = Active/Suspended) TAKE ONE TABLET BY MOUTH EVERY MORNING BEFORE A MEAL FOR HYPOTHYROIDISM TAKE 30 MINUTES BEFORE FOOD. TAKE SEPARATELY FROM ALL OTHER MEDICATIONS. Rx# [id number] Last Released: Qty/Days Supply: Rx Expiration Date: 03/22/26 Refills Remainin Indication: FOR HYPOTHYROIDISM OUTPT MODAFINIL 200MG TAB (Status = Active) TAKE ONE TABLET BY MOUTH EVERY MORNING FOR SLEEP APNEA Rx# [id number] Last Released: 03/20/25 Qty/Days Supply: 30 Rx Expiration Date: 08/13/25 Refills Remainin OUTPT OXCARBAZEPINE 150MG TAB (Status = Discontinued) TAKE ONE TABLET BY MOUTH TWICE A DAY Rx# [id number] Last Released: 01/09/25 Qty/Days Supply: Rx Expiration Date: 02/04/25 Refills Remainin OUTPT PANTOPRAZOLE NA 20MG EC TAB (Status = ) TAKE ONE TABLET BY MOUTH EVERY MORNING BEFORE A MEAL FOR GASTROESOPHAGEAL REFLUX DISEASE TAKE 30 MINUTES BEFORE MEAL(S) Rx# [id number] Last Released: 12/30/24 Qty/Days Supply: Rx Expiration Date: 03/28/25 Refills Remainin Indication: FOR GASTROESOPHAGEAL REFLUX DISEASE OUTPT PHENTERMINE 15/TOPIRAMATE 92MG SA CAP (Status = Discontinued) TAKE 1 CAPSULE BY MOUTH EVERY MORNING Rx# [id number] Last Released: 01/31/25 Qty/Days Supply: Rx Expiration Date: 02/26/25 Refills Remainin OUTPT PHENTERMINE 15/TOPIRAMATE 92MG SA CAP (Status = Discontinued) TAKE 1 CAPSULE BY MOUTH ONCE A DAY Rx# [id number] Last Released: 03/02/25 Qty/Days Supply: Rx Expiration Date: 03/12/25 Refills Remainin OUTPT PROPRANOLOL HCL 10MG TAB (Status = Discontinued) TAKE ONE TABLET BY MOUTH THREE TIMES A DAY NEEDED Rx# [id number] Last Released: Supply: Rx Expiration Date: 03/28/25 Refills Remainin OUTPT TERBINAFINE HCL 250MG TAB (Status = ) TAKE ONE TABLET BY MOUTH ONCE A DAY Rx# [id number] Last Released: 01/02/25 Qty/Days Supply: Rx Expiration Date: 01/28/25 Refills Remainin OUTPT TERBINAFINE HCL 250MG TAB (Status = ) TAKE ONE TABLET BY MOUTH ONCE A DAY Rx# [id number] Last Released: 02/21/25 Qty/Days Supply: Rx Expiration Date: 03/17/25 Refills Remainin SUPPLIES PHARMACY TERMS AND POSSIBLE PATIENT ACTIONS INPT = [place] inpatient order IV = [place] intravenous medication OUTPT = [place] outpatient prescription PHARMACY POSSIBLE PATIENT TERMS EXPLANATION ACTIONS -------- ---- ACTIVE A prescription that can be If you have refills, filled at the local [place] pharmacy. you may request a refill of this prescription from your VA pharmacy. CLINIC A medication you received during If you have questions a visit to a [place] clinic or about this medication emergency department. contact your [place] healthcare team. DISCONTINUED A prescription your provider has Contact your [place] stopped. It is no longer healthcare team if you available to be sent to you or need more of this picked up at the [place] pharmacy medication. window. A prescription which is too old Contact your VA to fill. This does not refer to healthcare team if you the expiration date of the need more of this medication in the container. medication. NON-VA A medication that came from If this medication someplace other than a VA information is pharmacy. This may be a incorrect or out of prescription from either the VA date, please tell your or non VA providers that was VA healthcare team. filled outside the VA. Or, it may be an xnmm-yia-gslwkmi (OTC), herbal, dietary supplements or sample medication. ON HOLD An active prescription that will Contact your VA not be filled until pharmacy pharmacy when you need resolves the issue. more of this medication. PARKED An active prescription that will Contact your VA not be filled until the patient pharmacy when you need requests it. this medication. PENDING This prescription order has been If you have been sent to the pharmacy for review instructed to start and is not ready yet. this medication now, contact your VA pharmacy. SUSPENDED An active prescription that is Contact your [place] not scheduled to be filled yet. pharmacy if you need You should receive it before this medication now. you run out. Medication list reviewed with Patient Patient/Caregiver reports taking medications as ordered. IS PATIENT TAKING ANY OVER THE COUNTER MEDICATIONS, SUCH VITAMINS OR HERBAL SUPPLEMENTS, INCLUDING ANY MEDICATIONS PRESCRIBED BY ANOTHER PHYSICIAN? No Does patient have any new allergies to report since last visit? NO VITALS: TEMPERATURE: 98.5 F [36.9 C] (11/28/2024 08:32) BP: 138/100 (03/21/2025 08:41) RESP: 16 (03/21/2025 08:39) PULSE: 92 (03/21/2025 08:41) HT: 68.0 in [172.7 cm] (03/21/2025 08:39) WT: 231.9 lb [105.19 kg] (03/21/2025 08:39) BMI: 35.3 PAIN ASSESSMENT: (Most Recent Pain Score in Vitals Package: 6 (03/21/2025 08:39) ) The patient indicated that they and their close contacts have not traveled outside of the [place] in the past 21 days. The patient reports the following symptoms: No symptoms present The patient is not immunocompromised. The patient does not report having a history of Multi Drug Resistant Organism (MDRO) within the last five years. The patient does not report having been exposed to measles, chickenpox, or zoster in last 30 days. Patient reports no pain at this visit. Pain Score = 0. STRESS: Thank you for your service. Now let us serve you. At the [facility], we strive to provide you with exceptional health care that improves your health and well-being. Are you feeling sad, empty, or depressed? No Do you need to talk about things in your life that worry you or cause you stress? No Do you need to talk about personal problems, family problems, alcohol use, drug use, or mental or emotional illness? No SUICIDE SCREENING: The patient was asked, Over the past two weeks, how often have you been bothered by thoughts that you would be better off or of hurting yourself in some way? Not At All SPIRITUAL ASSESSMENT: Are there quaker practices or spiritual concerns you want the social sciences department chair, your physician, and other health care team members to immediately know about? No Patient advised to call the clinic for any concerns, questions, or symptoms. Patient and/or caregiver verbalized understanding of plan of care. /stefano/ KEI FUENTES LPN Signed: 04/17/2025 15:40 KEI FUENTES [facility]
--- OUTSIDE RECORDS SUMMARY | 2025-05-11 07:15 | XMS_ITS | Encounter Summary ---
Author Name [facility] Organization [facility] Address [address] [place] [address] Care Team Providers Care Carton Forming Machine Adjuster Name Role Phone MARILY MYERS Primary Care [...] BASIC PLUS 1 Dec 13, 2017 113 [id number] [phone] Holly ARNETT PATIENT ANTHEM [employer] [place] FEP PREFERRED PROVIDER ORGANIZAT ION (PPO) FEP BASIC PLUS 1 Dec 13, 2017 113 [id number] [phone] Holly ARNETT PATIENT ANTHE[place] FEP PREFERRED PROVIDER ORGANIZAT ION (PPO) FEP BASIC PLUS 1 Dec 13, 2017 113 [id number] [phone] Holly ARNETT PATIENT [place] BS [place] FEP PREFERRED PROVIDER ORGANIZAT ION (PPO) FEP Dec 13, 2017 113 [id number] [phone] Holly ARNETT PATIENT BC BS [place] (FEP) PREFERRED PROVIDER ORGANIZAT ION (PPO) FEP Dec 13, 2017 113 [id number] Holly ARNETT PATIENT BC BS [place] FEP PREFERRED PROVIDER ORGANIZAT ION (PPO) FEP-B ASIC- PPO Dec 13, 2017 113 [id number] Holly ARNETT PATIENT BC BS [place] FEP PREFERRED PROVIDER ORGANIZAT ION (PPO) 113 FEP Dec 13, 2017 113 [id number] [phone] Holly ARNETT PATIENT [place] FEP PREFERRED PROVIDER ORGANIZAT ION (PPO) FEP BASIC PLUS 1 Dec 13, 2017 113 [id number] [phone] Holly ARNETT PATIENT [employer] ([id number]) PRESCRIPT ION FEP Dec 13, 2017 [id number] Holly ARNETT PATIENT [employer] ([id number]) PRESCRIPT ION FEPRX Dec 13, 2017 [id number] Holly ARNETT PATIENT [employer] ([id number]) PRESCRIPT ION FEP Dec 13, 2017 [id number] Holly ARNETT PATIENT [employer] ([id number]) FEP PRESCRIPT ION FEPRX Dec 13, 2017 [id number] Holly ARNETT PATIENT [employer] ([id number]) FEP PRESCRIPT ION FEP Dec 13, 2017 [id number] Holly ARNETT PATIENT [employer] FEP ([id number]) PRESCRIPT ION FEPRX Dec 13, 2017 [id number] [phone] Holly ARNETT PATIENT Selected Encounter This section includes the information on record at ME for the Encounter. Date/Time Encounter Type Encounter Description Reason Provider Source May 11, 2025 01:15 PM Outpatient Encounter COMMUNITY CARE CONSULT LOLY MYERS Encounter Template Text not used by ME Plan of Treatment: Future Appointments (+ 6 [...] 20 appointments. The data comes from all [facility]. Appointment Date/Time Appointment Type Appointme nt Facility Name May 12, 2025 01:00 PM AMBULATORY - MEDICINE [facility] May 29, 2025 08:50 AM AMBULATORY - MEDICINE [facility] Aug 02, 2025 11:00 AM AMBULATORY - MEDICINE [facility] Sep 01, 2025 08:30 AM AMBULATORY - MEDICINE [facility] Active, Pending, and Scheduled Orders This section includes a listing of several types of active, pending, and scheduled orders, including clinic medications orders, diagnostic test orders, procedure orders and consult orders; where the start date of the order is 45 days before the date of the Encounter or 45 days after the date of theEncounter. The data comes from all [facility]. Test Date/Time Test Type Test Details Facility Name Apr 04, 2025 08:46 AM Consult Order COMMUNITY CARE-ALLERGY [id number] Cons Community Case Manager's Choice [facility] Apr 13, 2025 04:30 PM Consult Order COMMUNITY CARE-DERMATOLOGY [id number] Cons [facility] Apr 17, 2025 03:55 PM Consult Order COMMUNITY CARE-COLONOSCOPY SURVEILLANCE [id number] Cons Community Case Manager's Choice [facility] May 05, 2025 04:32 PM Consult Order PROSTHETIC S REQUEST - OUTPT [id number] Cons Community Case Manager's [facility] May 11, 2025 03:50 PM Consult Order COMMUNITY CARE-CHIROPRACTIC [id number] Cons Community Case Manager's Choice [facility] Encounter Notes: All associated encounter notes This section contains the clinical notes associated to the Encounter. Date/Time Encounter Note(s) Provider Source May 11, 2025 01:17 PM LETTERS: LOCAL TITLE: COMMUNITY CARE-REQUEST FOR SERVICES (RFS) LETTER PB STANDARD TITLE: LETTERS DATE OF NOTE: MAY 11, 2025@13:17 ENTRY DATE: MAY 11, 2025@13:18:02 AUTHOR: JESUS STODDARD COSIGNER: URGENCY: STATUS: COMPLETED ANNAMARIE [address] [address] [place] [address] [address] [facility] [address] [place] [address] P:[phone] F: [phone] Email: [email or web address] stuart JEANNETTE [phone] Dear Provider, Early Information: Patient Name: Pete Arnett Date of : 1985 [facility] has received the request for continuation of care from you. Upon review, the following determination has been made: A consult has been entered for requested services. This consult request will be reviewed for services offered within the [place] before approving services to community provider. If approved for community services, the authorization will be faxed to the appropriate office. It is recommended that no appointments be scheduled for the referred request until the authorization has been approved. No action is required by your office at this time. Should you have questions, please contact us at [phone] ext [phone] to speak with a patient service desk analyst. As a reminder, if applicable, return medical records within 30 days for routine services. Sincerely, Community Care Staff JESUS STODDARD [facility] May 11, 2025 01:16 PM NONVA NOTE: LOCAL TITLE: COMMUNITY CARE-REQUEST FOR SERVICE NOTE STANDARD TITLE: NONVA NOTE DATE OF NOTE: MAY 11, 2025@13:16 ENTRY DATE: MAY 11, 2025@13:16:55 AUTHOR: JESUS STODDARD EXP COSIGNER: URGENCY: STATUS: COMPLETED Community Care-Request for Service Note Consult number(#): [id number] The Community Care Provider-Request for Service (ME-Form [id number]) and supporting medical records have been received and indexed for provider review. Date submitted by Community Provider: Apr Type of service requested: Continuation of previously authorized care Requested Service: chiro Requesting Community Provider Information: ANNAMARIE GOLD [address] [place] [address] [address] P:[phone] F: [phone] Email: [email or web address] stuart JEANNETTE [phone] /[email or web address]/ JESUS [facility] Community Signed: 05/11/2025 13:17 JESUS STODDARD [facility]
--- OUTSIDE RECORDS SUMMARY | 2025-05-13 05:36 | XMS_ITS | Clinical Summary ---
Author Organization [facility] [address] [place] [address] Care Team Providers Care Hadoop Administrator Name Role Phone Unavailable Primary Care Provider [...] tablet Take 54 mg by mouth daily gallery or museum guide. Active cetirizine (ZyrTEC) 10 mg tablet Take [...] Health Maintenance Due Date Last Done Comments DTAP/TDAP/TD VACCINES (1 - Tdap) 12/22/2003 HEPATITIS B VACCINES (1 of 3 - 19+ 3-dose series) 07/2003 HPV VACCINES (1 - 3-dose SCDM series) 12/22/2011 INFLUENZA VACCINE (#1) 2025 01/30/2020 Insurance [employer]
--- OUTSIDE RECORDS SUMMARY | 2025-05-13 05:36 | XMS_ITS | Encounter Summary ---
Author Organization [facility] Address [address] [place] [address] Care Team Providers Care Hand Ii Cutter Name Role Phone Unavailable Primary Care Provider Unavailabl e Encounter Details Date Type Department Care Team (Late st Contact Info) Description 01/09/2020 Ancillary Orders [facility] Orthopedics - Orthopedic [facility] [address] [place] [id number] [facility], External Provider [address] [place] [address] Pain Social History Tobacco Use Types Packs/Day [...] be scanned to PACS. us External Provider [facility] DIAGNOSTIC IMAGING ORDERAB LES Final Result * XR PRIOR STUDY (10/24/2019 12:00 PM CDT) Narrative 01/09/2020 9:06 AM CDT This exam was auto finalized to allow images to be scanned to PACS. us External Provider [facility] DIAGNOSTIC IMAGING ORDERAB LES Final Result documented in this encounter Visit Diagnoses Diagnosis Pain Generalized pain Pain Generalized pain Pain Generalized pain documented in this encounter
--- OUTSIDE RECORDS SUMMARY | 2025-05-13 05:36 | XMS_ITS | Data Portability ---
Author Organization [facility] Henry Mejía [facility] Address [address] [place] [address] Care Team Providers Care Table Games Floor Supervisor Name Role Phone MARILY MYERS Primary Care Provider Assessment Encounter Date Assessment Date Assessment LastModified by Organization Details LastModified Time 10/31/2024 10/31/2024 I offered flu test and covid test today. pt declines. [email or web address] Not available 10/31/2024 10:18:36 Plan of Treatment Reminders Order Date Submit Date Provider Last Modified By Organization Details Last Modified Time Details Appointments None recorded. Lab rapid strep group A, throat 2023 024 [email or web address] [facility] [address] [place] [address], [address], 4 11:02:27 Referral None recorded. Procedures None recorded. Surgeries None recorded. Imaging None recorded. Medication Orders azithromyci n 250 mg tablet 2024 025 [facility] [address], [address], [place], [address], 5 10:18:14 prednisone 20 mg tablet 2024 025 [facility] [address], [address], [place], [address], 5 05:01:12 amoxicillin 500 mg tablet 2023 024 [email or web address] 276 [facility] [address], [address], [place], [address], 5 09:45:57 Patient TargetsNo targets recorded. Patient Instructions Encounter Date Encounter Id Patient Instructions Last Modified By Organization Details Last Modified Time 09/26/2023 [id number] Increase fluids and take all of antibiotics. May rinse mouth several times a day with a good mouth wash [email or web address] Not available 09/26/2023 14:01:32 Reason for Referral None Reported. Results Created Date Observation Date Name Description Value Unit Range Abnormal Flag Note LastModifiedBy Organization Detail LastModifiedTime 09/26/19 24 09/26/2023 rapid strep group A, throa t Strep positi ve Not Available [facility] [address] [place], [address], 09/26/2023 10:38:04 Result Notes None recorded. Problems Name Problem SNOMED Code Status Onset Date Resolution Date Notes Provider Name and Address Organization Details Recorded Time Anxiety state 171761014 Completed 201703/27/2018 Anxiety - Status is Inactive ; 03/27/20 18 1:58PM by Sally Verde CMT, Ana on/Adden dum; Promoted ; acuity set as *; Not Available [facility] 3 03:10:54 Tear of meniscus of knee 327960464 Completed 201808/05/2018 Torn meniscus - Status is Inactive ; right knee; 08/05/19 19 8:01AM by Sally Verde CMT, Ana on/Adden dum; Promoted ; acuity set as *; Not Available [facility] 3 03:10:54 Obsessiv e-compul sive disorder 715125265 Active 2021 OCD - Status is Inactive ; 03/27/20 18 1:58PM by Sally Verde CMT, [place] on/Adden dum; Promoted ; acuity set as *; ; Start Date : 03/27/20 18 OCD (OBSESSI VE COMPULSI VE DISORDER ); 10/18/19 22 9:05AM by Zaida Michel LPN, Office Visit; Promoted ; acuity set as *; Not Available [facility] 3 03:10:54 Anxiety 52787484 Active 2021 ANXIETY; 10/18/19 22 9:05AM by Zaida Michel LPN, Office Visit; Promoted ; acuity set as *; Not Available [facility] 3 03:10:54 Problem Notes None recorded. Procedures Surgical History Date Name Laterality Status Provider Name and Address Organization Details Recorded Time repair of joint of right knee completed [facility] 09/26/2023 10:29:15 repair of joint of left knee completed [facility] 09/26/2023 10:29:24 extraction of wisdom tooth completed [facility] 09/26/2023 10:29:32 Imaging Results None recorded. Procedure Notes None recorded. Medical Equipment None Reported. Allergies Allergen ID Allergen Name Allergen Category Reaction Reaction Severity Criticality Documentation Date Start Date Code Code System Note Provider Name and Address Organization Details Recorded Time 96670 Vaccine product containin g only [place] a enterica subspecie s enterica serovar Typhi antigen (medicina l product) medicatio n anaphylax is severe low 01/17/2023 79344 76508 00 SNOMED [facility] 4 10:26:21 12774 gabapenti n medicatio n anaphylax is headache severe severe low 01/17/2023 05659 RxNorm [facility] 4 10:24:55 53513 Wellbutri n medicatio n other severe high 01/17/2023 23848 RxNorm repor ts becom ing angry on medic ation s [facility] 4 10:25:55 48996 Paxil medicatio n other severe low 01/17/2023 01281 8 RxNorm Repor ts becom ing angry on the medic ation Dalia Pliler [facility] 4 10:25:26 30776 Substance with sulfonami de structure and antibacte rial mechanism of action (substanc e) medicatio n anaphylax is severe low 01/17/2023 79155 8003 SNOMED Daliacindi Wiseman [facility] L[facility] 4 10:26:09 31681 bupropion hydrochlo ride medicatio n other moderate high 01/17/202383244 4 RxNorm Repor ts makin g patie nt very angry Bannerbouchra [facility] LN[facility] 4 10:24:40 29050 clindamyc in hydrochlo ride medicatio n Not available Not available Not available 01/17/2023 65776 RxNorm [facility] 4 10:24:49 Medications Name Sig Start [...] mass index (BMI) Body weight Oxygen saturation Heart rate Respiratory rate Body temperature Systolic And Diastolic Provider Name and Address Organization Details Last Updated DateTime 4 172.72 cm 36.2 kg/m2 707449. 7 g 96 % 84 /min 16 /min 97.8 [degF] 116/84 mm[Hg] Dalia Wiseman [facility] 4 10:37:29 Date Recorded Body weight Body mass index (BMI) Body height Body temperature Heart rate Oxygen saturation Systolic And Diastolic Provider Name and Address Organization Details Last Updated DateTime 5 756474. 31 g 33.8 kg/m2 172.72 cm 98.1 [degF] 81 /min 97 % 132/74 mm[Hg] Carleen Valverde [facility] 5 09:50:56 Social History Question Answer Notes LastModified by Organizat ion Details LastModified Time Tobacco Smoking Status Never Smoker Dalia bull [facility] 09/26/2023 10:29:01 What Was The Date Of [...] Time TST-PPD intradermal 7 completed Not Available [facility] 01/17/2023 02:54:12 Influenza, split virus, trivalent, preservative 8 completed Not Available [facility] 01/17/2023 02:54:12 Td (adult) 2 completed Not Available [facility] 01/17/2023 02:54:13 Influenza, split virus, quadrivalent, preservative 8 completed Not Available [facility] 01/17/2023 02:54:13 DTP 5 completed Not Available [facility] 10/31/2024 09:42:29 OPV, trivalent 5 completed Not Available [facility] 10/31/2024 09:42:29 DTP 5 completed Not Available [facility] 10/31/2024 09:42:29 OPV, trivalent 5 completed Not Available [facility] 10/31/2024 09:42:29 DTP 6 completed Not Available [facility] 10/31/2024 09:42:29 OPV, trivalent 6 completed Not Available [facility] 10/31/2024 09:42:29 DTP 7 completed Not Available [facility] 10/31/2024 09:42:29 OPV, trivalent 7 completed Not Available [facility] 10/31/2024 09:42:29 MMR 7 completed Not Available [facility] 10/31/2024 09:42:29 DTP 9 completed Not Available [facility] 10/31/2024 09:42:29 OPV, trivalent 9 completed Not Available [facility] 10/31/2024 09:42:29 MMR 2 completed Not Available [facility] 10/31/2024 09:42:29 Hep B, unspecified formulation 6 completed Not Available [facility] 10/31/2024 09:42:29 Hep B, unspecified formulation 6 completed Not Available [facility] 10/31/2024 09:42:29 Hep B, unspecified formulation 7 completed Not Available [facility] 10/31/2024 09:42:29 Hep A, ped/adol, 2 dose 8 completed Not Available [facility] 10/31/2024 09:42:29 Hep A, ped/adol, 2 dose 8 completed Not Available [facility] 10/31/2024 09:42:29 Td (adult), 2 Lf tetanus toxoid, preservative free, adsorbed 9 completed Not Available [facility] 10/31/2024 09:42:29 Hep A, ped/adol, 2 dose 9 completed Not Available [facility] 10/31/2024 09:42:29 Pneumococcal conjugate PCV 13 9 completed Not Available [facility] 10/31/2024 09:42:29 Influenza, split virus, quadrivalent, PF 3 completed Not Available [facility] 10/31/2024 09:42:29 MMR 4 completed Not Available [facility] 10/31/2024 09:42:29 MMR 4 completed Not Available [facility] 10/31/2024 09:42:29 Influenza, split virus, trivalent, PF 4 completed Not Available [facility] 10/31/2024 09:42:29 Past Encounters Encounter ID Performer Location Encounter Start Date Encounter Closed Date Diagnosis/Indication Diagnosis SNOMED-CT Code Diagnosis ICD10 Code Diagnosis IMO Codes Diagnosis Note [id number] CODY MASTERS APRN [facility] [address] [place] [address] 09/26/2023 09:30:35 09/26/2023 11:16:14 Sore throat 815406482 J02.9 Acute pharyngitis 031500 003 J02.9 [id number] Acosta Lopez DO [facility] ([facility]) [address] [place] [address] 10/31/2024 09:41:11 10/31/2024 10:31:53 Acute bacterial sinusitis 99764307 J01.90 B96.89 [id number] I counseled pt on diagnosis and treatment. [...] Schmidt Member ID Guarantor Name 10/31/[address] [facility]: [place] - [employer] 113 Renny Arnett [id number] Renny Arnett 10/31/[address] [facility] - [place] (PPO[place] 113 Renny Arnett [id number] Renny Arnett Notes Date Note Type Note Provider Name and Address Organization Details Recorded Time 09/26/2023 text/html Sore ThroatRepor clifford by PatientHPIFor quality, patient reportshoarseness,bu rning, andpressure. For severity, patient reportsmildandmodera te. For context, patient reportsothers with similar symptoms. For associated symptoms, patient reportscough,swollen glands,appetite loss,itching throat, andglobus sensationbut reportsno fever,no nausea,no vomiting, andno headache. For location, patient reportsleft sideandmidline. For onset/timing, patient reportsdate of onset a few days agoandgradual. For duration, patient reportsstarted a few day(s) ago. For alleviating factors, patient reportsnothing gives relief.Noticed a white pus pocket while brushing teeth. Fatigue, burning in through, nagging cough, LEW, nausea. Has had strep. Works for [employer]ROS as noted in the HPI Patient reports having strep throat. Symptoms include redness, swelling, puss pocket/white patch on left back of throat, sore throat, itchy, sinus drainage. Denies ear pain. Has not taken any medications for symptoms. Exposed to someone with strep throat. Tyler Perea MD [address] [place], [address], [facility] Lizeth, Ruth. 09/27/2023 08:43:30 10/31/2024 text/html ROS as noted in the HPI walk in ptPt has a cough, fatigue, chest and nasal congestion, sore throat and headache for 2-3 days. getting worse.some nausae. no vomiting.He denies sick contacts. works from home. gets allergy and sinus issues this time of year. Acosta Lopez DO [address] [place], [address], [facility] Lizeth, Geena 10/31/2024 10:19:51
--- NOTE | 2025-05-13 05:49 | W.ED.ABDPA2 ---
HPI - Abdominal Pain General: Chief Complaint: Abdominal Pain Stated Complaint: abd pain L low Time Seen by Provider: 05/13/25 05:47 History of Present Illness: 39-year-old man with a history of anxiety, hypothyroidism, obesity, who presents to the emergency room with left lower quadrant abdominal pain. This been going on for 3 days. He said some nausea but no vomiting. No changes in his stools. No dysuria. No fever. Related Data Home Medications ?Medication ?Instructions ?Recorded ?Confirmed fexofenadine 180 mg tablet See Rx Instructions .Route .COMPLEX 07/24/23 05/08/25 cholecalciferol (vitamin D3) 100 100 mcg PO DAILY 12/28/23 05/08/25 mcg (4,000 unit) tablet alprazolam 0.25 mg tablet (Xanax) 0.25 mg PO PRN PRN Anxiety 01/11/24 05/08/25 betamethasone valerate 0.1 % 1 applic topical TID PRN Skin 01/11/24 05/08/25 topical ointment Irritation coQ10 (ubiquinol) 200 mg capsule 200 mg PO DAILY 03/17/25 05/08/25 (CoQmax Ubiquinol) prasterone (DHEA) 50 mg capsule 50 mg PO DAILY 03/17/25 05/08/25 (DHEA) Previous Rx's ?Medication ?Instructions ?Recorded levothyroxine 100 mcg tablet 100 mcg PO DAILY #90 tabs 07/23/23 (Synthroid) epinephrine 0.3 mg/0.3 mL 0.3 mg (0.3 mL) IM Q10M PRN 01/17/25 injection, auto-injector (EpiPen anaphylaxis #2 ea 2-Vinnie) bisacodyl 5 mg tablet,delayed 5 mg PO DAILY #4 tabs 04/26/25 release (Dulcolax (bisacodyl)) peg 3350-electrolytes 236 240 ml PO Q10M #4,000 mL 04/26/25 gram-22.74 gram-6.74 gram-5.86 gram solution (Golytely) polyethylene glycol 3350 17 17 g PO BID 5 days #170 grams 04/26/25 gram/dose oral powder (Miralax) ciprofloxacin HCl 500 mg tablet 500 mg PO BID 10 days #20 tabs 05/13/25 hydrocodone 5 mg-acetaminophen 325 1 tab PO Q6H PRN pain #20 tabs 05/13/25 mg tablet metronidazole 500 mg tablet 500 mg PO Q8H 10 days #30 tabs 05/13/25 ondansetron 4 mg disintegrating 4 mg PO Q8H PRN nausea and 05/13/25 tablet vomiting #10 tabs polyethylene glycol 3350 17 17 g PO DAILY #510 grams 05/13/25 gram/dose oral powder (Miralax) Allergies Allergy/AdvReac Type Severity Reaction Status Date / Time semaglutide (From Wegovy) Allergy Severe ALGY-Anaphy Verified 04/26/25 08:39 laxis amitriptyline Allergy ALGY-Anaphy Verified 04/26/25 08:39 laxis clindamycin Allergy ALGY-Rash Verified 04/26/25 08:39 duloxetine Allergy ALGY-Rash Verified 04/26/25 08:39 fluoxetine Allergy ALGY-Rash Verified 04/26/25 08:39 gabapentin (From Neurontin) Allergy ALGY-Rash Verified 04/26/25 08:39 nortriptyline Allergy ALGY-Anaphy Verified 04/26/25 08:39 laxis pregabalin (From Lyrica) Allergy ALGY-Rash Verified 04/26/25 08:39 Sulfa (Sulfonamide Allergy Unknown Verified 05/13/25 07:24 Antibiotics) sulfamethoxazole (From Allergy ALGY-Rash Verified 04/26/25 08:39 Bactrim) sumatriptan (From Imitrex) Allergy Unknown Verified 04/26/25 08:39 trimethoprim (From Bactrim) Allergy ALGY-Rash Verified 04/26/25 08:39 typhoid vaccine Allergy ALGY-Anaphy Verified 04/26/25 08:39 laxis Review of Systems Narrative: Constitutional symptoms: Negative except as documented in HPI. Skin symptoms: Negative except as documented in HPI. Eye symptoms: Negative except as documented in HPI. ENMT symptoms: Negative except as documented in HPI. Respiratory symptoms: Negative except as documented in HPI. Cardiovascular symptoms: Negative except as documented in HPI. Gastrointestinal symptoms: Negative except as documented in HPI. Genitourinary symptoms: Negative except as documented in HPI. Musculoskeletal symptoms: Negative except as documented in HPI. Neurologic symptoms: Negative except as documented in HPI. Psychiatric symptoms: Negative except as documented in HPI. Endocrine symptoms: Negative except as documented in HPI. PFSH ED PFSH: Medical History (Updated 05/13/25 @ 07:20 by Yessy Jim MD) Blood in stool Social History Smoking and tobacco/nicotine status: never used tobacco/nicotine Physical Exam Narrative: EXAM NARRATIVE: General: Alert, no acute distress. Skin: Warm, dry. Head: Normocephalic, atraumatic. Neck: Supple, trachea midline. Eye: Extraocular movements are intact. Ears, nose, mouth and throat: mucosa moist. Cardiovascular: Regular, Normal peripheral perfusion. Respiratory: Lungs are clear to auscultation, respirations are non-labored, breath sounds are equal, Symmetrical chest wall expansion. Gastrointestinal: Soft, moderate left lower quadrant tenderness to palpation, Non distended Musculoskeletal: Normal ROM, no deformity. Neurological: Alert and oriented, No focal neurological deficit observed. Psychiatric: Cooperative, appropriate mood & affect. Course Vital Signs: Vital signs: Vital Signs Temperature 98.5 F 05/13/25 05:58 Pulse Rate 108 H 05/13/25 05:58 Respiratory Rate 18 05/13/25 05:58 Blood Pressure 143/100 05/13/25 05:58 Pulse Oximetry 99 05/13/25 05:58 Oxygen Delivery Me thod Room Air 05/13/25 05:58 MDM - Abdominal Pain Medical Decision Making Medical decision making Patient's reason for coming to the emergency room: Left lower quadrant abdominal pain. Social determinants: Patient is employed by the [employer]. I reviewed the patient's medical record. Was seen recently in surgery clinic for blood in stool and plan for endoscopy. I reviewed the patient's current home meds Patient has fairly recent prescriptions for phentermine and Xanax. I reviewed the prescription monitoring program. Alternate historians: None Differential diagnosis for a patient who presents with left lower quadrant abdominal pain including but not limited to and based on the above HPI, review of systems and physical exam: Diverticulitis. Constipation Ureterolithiasis. Urinary tract infection. colitis. small bowel obstruction. Crohn's flare. Orders placed to evaluate differential diagnosis based on the above differential, HPI and physical exam Lab Review: Laboratory results were reviewed and interpreted by myself the emergency room physician. Mild leukocytosis. No anemia. No renal failure. CRP is elevated. Lactic is not elevated. Urinalysis is negative for infection. CT of the abdomen pelvis with contrast: Uncomplicated mild short segment sigmoid colon proximal diverticulitis. This was reviewed and interpreted by myself the emergency room physician. I also reviewed the radiology report. Assessment of risk: Level of risk: Low risk patient. Hospitalization considerations: No consideration of hospitalization Reexamination: Patient remained stable. No increased work of breathing. No altered mental status. No focal motor deficits. Assessment and plan: Diverticulitis ?Toradol and Zofran in the emergency room - Discharged home - Discussed plan with patient. Answered any questions. - Evaluation and treatment of this problem were appropriate in the emergency setting. Lab Data 05/13/25 05:50 05/13/25 05:50 Labs/Radiology: Radiology Impressions Abdomen/Pelvis CT 05/13/25 05:55 IMPRESSION: Uncomplicated mild short-segment sigmoid colon proximal diverticulitis. Laboratory Results WBC 11.05 10^3/uL (3.29-11.43) 05/13/25 05:50 RBC 5.43 10^6/uL (3.85-5.65) 05/13/25 05:50 Hgb 16.20 g/dL (11.27-16.99) 05/13/25 05:50 Hct 48.6 % (37-53) 05/13/25 05:50 MCV 89.5 fl (82-101) 05/13/25 05:50 MCH 29.8 pg (27-33) 05/13/25 05:50 MCHC 33.3 g/dL (30-55) 05/13/25 05:50 RDW 12.7 % (12.1-15.1) 05/13/25 05:50 Plt Count 226 10^3/cmm (157-399) 05/13/25 05:50 MPV 9.0 fL (7.4-10.4) 05/13/25 05:50 Neut % (Auto) 72.8 % 05/13/25 05:50 Lymph % (Auto) 17.3 % 05/13/25 05:50 Mck[place]ley % (Auto) 8.8 % 05/13/25 05:50 Eos % (Auto) 0.6 % 05/13/25 05:50 Baso % (Auto) 0.3 % 05/13/25 05:50 Neut # (Auto) 8.05 10^3/uL (1.8-7.7) H 05/13/25 05:50 Lymph # (Auto) 1.9 10^3/uL (0.8-4.8) 05/13/25 05:50 [place] # (Auto) 1.0 10^3/uL (0.2-0.9) H 05/13/25 05:50 Eos # (Auto) 0.1 10^3/uL (0.0-0.8) 05/13/25 05:50 Baso # (Auto) 0.0 10^3/uL (0.0-0.1) 05/13/25 05:50 Nucleated RBC % (auto) 0 % 05/13/25 05:50 Nucleated RBCs # 0.0 /100WBC 05/13/25 05:50 Sodium 139 mmol/L (136-145) 05/13/25 05:50 Potassium 4.2 mmol/L (3.5-5.1) 05/13/25 05:50 Chloride 105 mmol/L (98-107) 05/13/25 05:50 Carbon Dioxide 27 mmol/L (22-29) 05/13/25 05:50 Anion Gap 11.2 (5-19) 05/13/25 05:50 BUN 16 mg/dL (6-20) 05/13/25 05:50 Creatinine 1.1 mg/dL (0.7-1.2) 05/13/25 05:50 GFR Calculation 74.1 mL/min (90-130) L 05/13/25 05:50 Glucose 107 mg/dL (65-115) 05/13/25 05:50 Calculated Osmolality 290 mOsm/kg (285-295) 05/13/25 05:50 Lactic Acid 1.0 mmol/L (0.5-2.2) 05/13/25 05:50 Calcium 9.3 mg/dL (8.5-10.5) 05/13/25 05:50 Total Bilirubin 0.5 mg/dL (0.15-1.2) 05/13/25 05:50 AST 23 U/L (0-40) 05/13/25 05:50 ALT 28 U/L (0-41) 05/13/25 05:50 Alkaline Phosphatase 80 U/L (40-130) 05/13/25 05:50 C-Reactive Protein 58.0 mg/L (0.0-4.9) H 05/13/25 05:50 Total Protein 7.4 g/dL (6.6-8.7) 05/13/25 05:50 Albumin 4.7 g/dL (3.5-5.2) 05/13/25 05:50 Globulin 2.7 g/dL (1.3-4.6) 05/13/25 05:50 Lipase 37 U/L (13-60) 05/13/25 05:50 Urine Color Yellow (Yellow) 05/13/25 06:48 Urine Appearance Clear (CLEAR) 05/13/25 06:48 Urine pH 6.0 (5-7) 05/13/25 06:48 Ur Specific [place] 1.036 (1.005-1.030) H 05/13/25 06:48 Urine Protein Negative (Negative) 05/13/25 06:48 Urine Glucose (UA) Negative (Normal) 05/13/25 06:48 Urine Ketones Negative (Negative) 05/13/25 06:48 Urine Blood Negative (Negative) 05/13/25 06:48 Urine Nitrate Negative (Negative) 05/13/25 06:48 Urine Bilirubin Negative (Negative) 05/13/25 06:48 Urine Urobilinogen 1.0 mg/dL (Negative) 05/13/25 06:48 Ur Leukocyte Esterase Negative (Negative) 05/13/25 06:48 Urine RBC 0-2 /hpf (0-2) 05/13/25 06:48 Urine WBC 0-5 /hpf (0-5) 05/13/25 06:48 Ur Squamous Epith Cells 0-5 /hpf (0-5) 05/13/25 06:48 Amorphous Sediment Not Reportable 05/13/25 06:48 Urine Bacteria None seen /hpf (NONE) 05/13/25 06:48 Hyaline Casts 0-4 /lpf H 05/13/25 06:48 All radiology interpretation(s) finalized by discharge Discharge Plan Discharge Patient Disposition: Home Clinical Impression: Diverticulitis Condition: Stable Prescriptions: New hydrocodone-acetaminophen 5-325 mg tablet 1 tab PO Q6H PRN (Reason: pain) Qty: 20 0RF metronidazole 500 mg tablet 500 mg PO Q8H 10 Days Qty: 30 0RF ciprofloxacin HCl 500 mg tablet 500 mg PO BID 10 Days Qty: 20 0RF polyethylene glycol 3350 [Miralax] 17 gram/dose powder 17 g PO DAILY Qty: 510 0RF Rx Instructions: Take 1 scoop daily while taking pain medications. ondansetron 4 mg tablet,disintegrating 4 mg PO Q8H PRN (Reason: nausea and vomiting) Qty: 10 0RF No Action cholecalciferol (vitamin D3) 100 mcg (4,000 unit) tablet 100 mcg PO DAILY DHEA 50 mg capsule 50 mg PO DAILY CoQmax Ubiquinol 200 mg capsule 200 mg PO DAILY bisacodyl [Dulcolax (bisacodyl)] 5 mg tablet,delayed release (DR/EC) 5 mg PO DAILY Qty: 4 0RF Rx Instructions: take 4 tabs at 2:00PM the day before the colonoscopy procedure polyethylene glycol 3350 [Miralax] 17 gram/dose powder 17 g PO BID 5 Days Qty: 170 0RF peg 3350-electrolytes [Golytely] 236-22.74-6.74 -5.86 gram recon soln 240 ml PO Q10M Qty: 4000 0RF Rx Instructions: until fecal effluent is clear levothyroxine [Synthroid] 100 mcg tablet 100 mcg PO DAILY Qty: 90 0RF betamethasone valerate 0.1 % ointment 1 applic TOPICAL TID PRN (Reason: Skin Irritation) alprazolam [Xanax] 0.25 mg Tablet 0.25 mg PO PRN PRN (Reason: Anxiety) fexofenadine 180 mg Tablet See Rx Instructions .ROUTE .COMPLEX Rx Instructions: TAKE 1 TABLET BY MOUTH DIRECTED, TITRATE BETWEEN TAKING 1 TABLET 2 TO 4 TIMES DAILY FOR ALLERGY SYMPTOMS. epinephrine [EpiPen 2-Vinnie] 0.3 mg/0.3 mL auto-injector 0.3 mg IM Q10M PRN (Reason: anaphylaxis) Qty: 2 0RF Rx Instructions: for 2 doses Discharge Orders: Discharge ED (Routine); Ordered 05/13/25 Ordered By: Yessy Jim Referrals: Leslie Stephenson FNP [Primary Care Provider, Nurse Practitioner] Discharge Diet: Usual diet Discharge Activity: Increase activity as tolerated Patient Instructions: Diverticulitis (ED), Diverticulitis Diet (ED), Abdominal Pain (ED), Opioid Safety, Pain Management, Patient Portal & Julian Instructions Activity Restrictions/Additional Instructions: Thank you for choosing [facility] for your healthcare needs today. You have been screened and evaluated and felt safe for discharge. Health conditions do change or evolve sometimes and as such it is important that you follow up with your Primary Doctor to be re checked, 3-5 days is a general good time frame for follow up. You are always welcome to return to the ED for re assessment if your symptoms are worsening or you have new concerns Print Language: Persian Coding Level of Care Code ED Banquet Stewardess for Alphonse Story
[2025-05-13 05:55] VITALS: BP 143/100; PULSE 108; RESP 18; TEMP 36.9; O2SAT 99; BMI 34.9
--- NOTE | 2025-05-13 05:55 | CTR_ITS ---
PROCEDURE INFORMATION: Exam: CT Abdomen And Pelvis With Contrast Exam date and time: 05/13/2025 6:26 AM Age: 39 years old Clinical indication: Nausea and vomiting; Abdominal pain; Localized; C/O lower abd pain with n/v TECHNIQUE: Imaging protocol: Computed tomography of the abdomen and pelvis with contrast. Radiation optimization: All CT scans at this facility use at least one of these dose optimization techniques: automated exposure control; mA and/or kV adjustment per patient size (includes targeted exams where dose is matched to clinical indication); or iterative reconstruction. Contrast material: OMNI 350; Contrast volume: 100 ml; Contrast route: INTRAVENOUS (IV); COMPARISON: CT abdomen pelvis wo con [id number] 03/09/2023 9:29 AM RADIATION DOSE METRICS: Total DLP (mGy-cm): 1064.43 FINDINGS: Liver: Normal. No mass. Gallbladder and biliary ducts: Normal. No calcified stones. No ductal dilation. Pancreas: Normal. No ductal dilation. Spleen: Normal. No splenomegaly. Adrenal glands: Normal. No mass. Kidneys and ureters: Normal. No hydronephrosis. Stomach and bowel: Mild short segment sigmoid colon proximal diverticulitis Appendix: No evidence of appendicitis. Intraperitoneal space: Unremarkable. No free air. No significant fluid collection. Vasculature: Unremarkable. No abdominal aortic aneurysm. Lymph nodes: Unremarkable. No enlarged lymph nodes. Urinary bladder: Unremarkable as visualized. Reproductive: Unremarkable as visualized. Bones/joints: Unremarkable. No acute fracture. Soft tissues: Unremarkable. CT/CT abdomen pelvis w con* [id number] IMPRESSION: Uncomplicated mild short-segment sigmoid colon proximal diverticulitis.
[2025-05-13 05:58] VITALS: BP 143/100; PULSE 108; RESP 18; TEMP 36.9; O2SAT 99
[2025-05-13 06:01] LABS: Hematocrit 48.6 % (37-53); Hemoglobin 16.20 g/dL (11.27-16.99); Mean Corpuscular HGB Conc 33.3 g/dL (30-55); Mean Corpuscular Hemoglobin 29.8 pg (27-33); Mean Corpuscular Volume 89.5 fl (82-101); Nucleated Red Blood Cells % 0 %; Platelet Count 226 10^3/cmm (157-399); Red Blood Count 5.43 10^6/uL (3.85-5.65); White Blood Count 11.05 10^3/uL (3.29-11.43)
[2025-05-13] MEDS: ondansetron 2 mg/ML SDV 2 mL 4 MG IVP (06:03)
[2025-05-13 06:13] LABS: Alanine Aminotransferase 28 U/L (0-41); Albumin Level 4.7 g/dL (3.5-5.2); Alkaline Phosphatase 80 U/L (40-130); Anion Gap 11.2 (5-19); Aspartate Amino Transferase 23 U/L (0-40); Blood Urea Nitrogen 16 mg/dL (6-20); Calcium 9.3 mg/dL (8.5-10.5); Carbon Dioxide 27 mmol/L (22-29); Chloride 105 mmol/L (98-107); Globulin 2.7 g/dL (1.3-4.6); Glucose 107 mg/dL (65-115); Lipase 37 U/L (13-60); Osmolality Calculated 290 mOsm/kg (285-295); Potassium 4.2 mmol/L (3.5-5.1); Sodium 139 mmol/L (136-145); Total Protein 7.4 g/dL (6.6-8.7)
[2025-05-13 06:14] LABS: Lactic Sepsis W/Reflex 1.0 mmol/L (0.5-2.2)
[2025-05-13] MEDS: iohexol 350 mg/mL 500 mL Btl (per mL) IV (06:28)
[2025-05-13 07:01] LABS: Glucose Urine UA Negative (Normal); Nitrate Urine Negative (Negative)
[2025-05-13 07:14] LABS: Specific Gravity, Urine 1.036 (1.005-1.030)
[2025-05-13 07:37] VITALS: BP 119/86; PULSE 93; O2SAT 95
== END 2025-05-13 07:37 | disposition home or self-care (01) ==
PROVIDERS: Emergency Provider Emergency Medicine; PCP Nurse Practitioner
DX: K57.32 Diverticulitis of large intestine without perforation or abscess without bleeding (principal)
CPT/HCPCS: 36415; 74177; 80053; 81001; 83605; 83690; 85025; 86140; 96374; 99285; J2405